=== PATIENT | male | born 1940 | race Caucasian/White ===

== ENCOUNTER → 2016-08-05 | Outpatient (CLI) | payer MEDICARE ==
[~2016-08-05] MED LIST: ALBU8.5H2 IH; ALBU8.5H2 INH; AMOX-358 PO; ASP81TEC PO; AZIT-21 PO; BENZ100C18 PO; BUDE6HFA INH; CEFP500T4 PO; CETI10TA17 PO; CHOL10008 PO; CHOL200018 PO; CINN500C7 PO; CINNAMON PO; CLOP75TA28 PO; DOCU100T PO; FLUT1DIS27 IH; FRSM40T PO; FURO20TA4 PO; GLUC1CAP3 PO; GUAI1TBM14 PO; GUAI1TBM7 PO; HYDR-3454 PO; IBUP-15 PO; IPR14IN INH; IPRA15SP2; IRBE1TAB17 PO; KCL20TCR PO; LACT1CAP62 PO; LEVO750T6 PO; LORA10TA7 PO; LOSA1TAB19 PO; LOSA1TAB9 PO; MAGN400T6 PO; MECL12.579 PO; METO25TA PO; MNTL10T PO; MOME13HF2 IH; MTF500T PO; NEBI2.5T5 PO; NF-CRES10T PO; NIAC1000 PO; NIAC500T30 PO; NITR0.4T SL; OMEG1CAP65 PO; POTA40LI PO; POTA99TA15 PO; PRCD5U PO; PRD10T PO; PRD20T PO; PRED10TA PO; RANI150T11 PO; RANI150T90 PO; RANI75TA30 PO; ROSU10TA12 PO; SITA100T PO; TEST75GE3 TD; TIOT18CA IH; TIOT18CA2 INH; TRIA10.8 NSEACH; TRIA16.5 NS; TRIA16.58 NSEACH; [UNRECOGNIZED DRUG - CODE] PO; [UNRECOGNIZED DRUG - OTHER]
--- OUTSIDE RECORDS SUMMARY | 2016-08-05 11:54 | XMS REPORT | Continuity of Care Document ---
Author Author [facility] Organization [facility] Address Unknown Phone Unavailable Care Team Providers Care Mold Setter Name Role Phone Unverified, Unverified PCP Unavailable Source Comments Some departments are not documenting in the electronic medical record. If you do not see the information that you expected, contact Release of Information in the Health Information Management department at [phone] for further assistance in locating additional records.[facility] Active Allergies and Adverse Reactions Allergen Noted Date Severity Reactions Comments Darvon 01/22/2013 UNKNOWN Loprox 01/22/2013 UNKNOWN Current Medications Prescription Sig. Disp. Refills Start End Date Status Date losartan/hydrochlorothiaz Take 1 Tab by mouth Active panda (HYZAAR) 100/12.5 mg daily. tablet 1 Tab rosuvastatin (CRESTOR) 10 Take 10 mg by mouth Active mg tablet daily. nebivolol (BYSTOLIC) 5 mg Take 5 mg by mouth daily. Active tablet potassium chloride SR Take 20 mEq by mouth Active (KLOR-CON M20) 20 mEq every 3 days. tablet montelukast (SINGULAIR) Take 10 mg by mouth at Active 10 mg tablet bedtime daily. metFORMIN (GLUCOPHAGE) Take 500 mg by mouth Active 500 mg tablet twice daily with meals. sitaGLIPtin (JANUVIA) 100 Take 100 mg by mouth Active mg Tab tablet daily. testosterone(+) (TESTIM) Apply to top of skin as Active 1 % (50 mg/5 g) directed daily. transdermal gel aspirin 81 mg chewable Take 81 mg by mouth Active tablet daily. cetirizine (ZYRTEC) 10 mg Take 10 mg by mouth Active tablet daily. GLUCOSAMINE HCL/CHONDR CHASE Take 2 Tabs by mouth Active A NA daily. (GLUCOSAMINE-CHONDROITIN) 750-600 mg Tab fish oil /omega-3 fatty Take 1 Cap by mouth three Active acids (SEA-OMEGA) times daily. 340/1000 mg capsule Cinnamon Bark (CINNAMON) Take 2 Caps by mouth Active 500 mg cap daily. Cholecalciferol (Vitamin Take 1 Cap by mouth Active D3) (VITAMIN D-3) 2,000 daily. unit cap docusate (COLACE) 100 mg Take 100 mg by mouth at Active capsule bedtime daily. niacin SR (ENDUR-ACIN) Take 500 mg by mouth Active 500 mg tablet twice daily. guaiFENesin LA (MUCINEX) Take 1,200 mg by mouth Active 600 mg tablet daily. ibuprofen (MOTRIN) 200 mg Take 200 mg by mouth Active tablet every 6 hours as needed. Mometasone-Formoterol Inhale 2 Puffs by mouth Active (DULERA) 100-5 twice daily. mcg/actuation HFAA tiotropium (SPIRIVA) 18 Inhale 18 mcg by mouth Active mcg capsule for inhaler daily. ipratropium (ATROVENT) Inhale 0.5 mg by mouth Active 0.02 % nebulizer solution daily. albuterol (VENTOLIN HFA, Inhale 2 Puffs by mouth Active PROAIR HFA) 90 every 6 hours as needed. mcg/actuation inhaler triamcinolone (NASACORT Apply 2 Sprays to each Active AQ) 55 mcg nasal inhaler nostril as directed daily. Active Problems Problem Noted Date COPD, very severe ([facility]) 01/23/2013 Former smoker, stopped smoking in distant past 01/23/2013 Supplemental oxygen dependent 01/23/2013 DM (diabetes mellitus) ([facility]) 01/23/2013 Social History Tobacco Use Types Packs/Day Years Used Date Former Smoker Cigarettes 1 37 Quit: 05/22/1994 Smokeless Tobacco: Never Used Alcohol Use Drinks/Week oz/Week Comments Yes 7 Standard 3.5 drinks or equivalent Last Filed Vital Signs Vital Sign Reading Time Taken Blood Pressure 165/88 01/22/2013 3:30 PM CDT Pulse 84 01/22/2013 3:30 PM CDT Temperature 36.2 C (97.1 F) 01/22/2013 3:30 PM CDT Respiratory Rate 20 01/22/2013 3:30 PM CDT Height 1.803 m (5' 11") 01/22/2013 3:30 PM CDT Weight 87.544 kg (193 lb) 01/22/2013 3:30 PM CDT Body Mass Index 26.93 01/22/2013 3:30 PM CDT Oxygen Saturation 93% 01/22/2013 3:30 PM CDT Plan of Care Health Maintenance Due Date Last Done Comments Physical (Comprehensive) 1947 Exam Pertussis Vaccine 1950 Tetanus Vaccine 1956 Shingles Vaccine 1999 Prevnar/Pneumovax (#1) 2004 Influenza Vaccine 01/20/2015 Results from Last 3 Months Not on file
--- NOTE | 2016-08-08 00:10 | ECHOCARDIOGRAPHY REPORT ---
PROCEDURE PHYSICIAN: GERARDO ZALDIVAR DATE OF PROCEDURE: 08/05/2016 TWO DIMENSIONAL ECHOCARDIOGRAM REPORT PRIMARY PHYSICIAN: OTHER PHYSICIAN: REFERRING PHYSICIAN: Dr. Briceno ORDERING PHYSICIAN: INDICATION FOR THE PROCEDURE: 1. Coronary artery disease. 2. Congestive heart failure. MEASUREMENTS DERIVED VALUES LV DIAMETER (LAX) NORMALS NORMALS Diastolic 4.2 (3.6-5.2) Eject. Fract. 60% (60%+/-6%) Systolic (2.3-3.9) Diastolic Vol. % Shortening (0.22-0.42) Systolic Vol. Aortic Root IVS THICKNESS Diastolic 1 (0.6-1.1) LVPW THICKNESS Diastolic 1.1 (0.6-1.1) LA DIAMETER Systolic 3 (2.1-3.7) FINDINGS: 1. Technical quality is good. 2. The left ventricle is normal in size. Systolic function appeared to be normal. Estimated ejection fraction 60%. 3. The left atrium is normal in size. No clot or thrombus were seen within the left atrium. 4. The right atrium and right ventricle are prominent. No clot or thrombus were seen within the right side. 5. Mitral valve is calcified with mild mitral regurgitation noted by color Doppler flow. No mitral valve prolapse. No mitral valve stenosis. 6. Aortic valve leaflets were not well visualized. No significant aortic valve stenosis or regurgitation was seen. 7. Tricuspid valve is normal in morphology with mild to moderate tricuspid regurgitation noted by color Doppler flow. Doppler across tricuspid valve estimated pulmonary artery pressure of 28+ right atrial pressure. 8. Pulmonic valve is functioning normally. 9. No pericardial effusion. IN CONCLUSION: 1. Normal left ventricular size and systolic function. Estimated ejection fraction 60%. 2. Prominent right heart chambers with estimated pulmonary artery pressure of 35 mmHg. 3. Mild mitral regurgitation, mild to moderate tricuspid regurgitation. Job ID: [id number] Dictated Date: 08/07/2016 10:51:50 Archivist Political History Date: 08/08/2016 00:07:02 / [place]
== END ==
LOC: CARD 11:50
PROVIDERS: ATTEND Internal Medicine Cardiovascular Disease
DX: I25.10 Atherosclerotic heart disease of native coronary artery without angina pectoris (principal); I50.22 Chronic systolic (congestive) heart failure; J44.9 Chronic obstructive pulmonary disease, unspecified; I65.23 Occlusion and stenosis of bilateral carotid arteries; I10 Essential (primary) hypertension; I27.2 Other secondary pulmonary hypertension
CPT/HCPCS: 93306

== ENCOUNTER → 2016-11-21 | Outpatient (CLI) | payer MEDICARE ==
--- NOTE | 2016-11-21 09:52 | Diagnostic Imaging Report ---
PROCEDURE: CT chest without contrast. TECHNIQUE: Multiple contiguous axial images were obtained through the chest without the use of intravenous contrast. INDICATION: Emphysema. Followup nodules. COMPARISON: The 11/18/2015 and 11/17/2014 CT chest exams were reviewed. FINDINGS: There are severe emphysematous changes again noted. A left upper lobe nodule measuring 2.1 x 8 mm is again noted without change from the prior exams. Another nodule in the right lung apex is also seen measuring 1.1 cm, also without significant change from the prior exams. There is no significant consolidation, mass, or new nodule identified. A calcified granuloma in the left lung base is seen. Some fibrotic changes are also noted. The heart size is normal. No pericardial or pleural effusion. There is evidence of prior CABG with healed sternotomy and sternotomy wires still seen. The thoracic aorta is normal in caliber. There is no mediastinal lymphadenopathy. No hilar lymphadenopathy or masses are appreciated along the unenhanced hilar vessels. No axillary lymphadenopathy. Sections in the upper abdomen demonstrate no significant abnormality. The osseous structures demonstrate mild degenerative changes in the thoracic spine. IMPRESSION: 1. Severe emphysema. 2. Stable bilateral upper lobe nodules from 2014, suggestive of scarring. Dictated by: Dictated on workstation # [id number]
== END ==
LOC: RAD 07:44
PROVIDERS: ATTEND Nurse Practitioner Family
DX: J43.9 Emphysema, unspecified (principal); R91.8 Other nonspecific abnormal finding of lung field; I27.2 Other secondary pulmonary hypertension
CPT/HCPCS: 71250

== ENCOUNTER 2016-12-08 10:00 | Outpatient (RCR) | payer MEDICARE | END 2016-12-11 | disposition home or self-care (01) | LOC: PULM 10:00 | PROVIDERS: ATTEND Nurse Practitioner Family | DX: J44.9 Chronic obstructive pulmonary disease, unspecified (principal); I27.2 Other secondary pulmonary hypertension | CPT/HCPCS: 99211 ==

== ENCOUNTER 2017-02-14 10:00 | Outpatient (RCR) | payer MEDICARE | END 2017-02-18 | disposition home or self-care (01) | LOC: PULM 10:00 | PROVIDERS: ATTEND Nurse Practitioner Family | DX: J44.9 Chronic obstructive pulmonary disease, unspecified (principal); I27.2 Other secondary pulmonary hypertension ==

== ENCOUNTER → 2018-02-26 | Outpatient (CLI) | payer MEDICARE ==
--- NOTE | 2018-02-26 13:15 | Diagnostic Imaging Report ---
INDICATION: Dysphagia. TECHNIQUE: The procedure was performed in conjunction with a member of the Department of Speech Pathology. The patient swallowed thin and thick barium as well as semisolid and solid foods mixed with barium paste. The study was recorded on video tape. FINDINGS: The oral phase of swallowing is unremarkable. There is no early spillover. There is no significant residual in the vallecula or pyriform sinuses. Cricopharyngeal function and laryngeal elevation are normal. There is no evidence of penetration or aspiration. IMPRESSION: No evidence of penetration or aspiration. Please correlate with the formal Speech Pathology report. Dictated by: Dictated on workstation # [id number]
== END ==
LOC: RAD 09:55
PROVIDERS: ATTEND Internal Medicine
DX: R13.12 Dysphagia, oropharyngeal phase (principal)
CPT/HCPCS: 74230

== ENCOUNTER → 2018-12-07 | Outpatient (CLI) | payer MEDICARE ==
[~2018-12-07] MED LIST changes: -HYDR-3454 PO; +HYDR-3455 PO; +RT-ALBUTEROL SULF 2.5 MG/3 ML PRE-MIX VIAL INH ONE
== END ==
LOC: RT 13:08
PROVIDERS: ATTEND Nurse Practitioner Family
DX: J44.9 Chronic obstructive pulmonary disease, unspecified (principal); I27.20 Pulmonary hypertension, unspecified; I30.9 Acute pericarditis, unspecified; F17.210 Nicotine dependence, cigarettes, uncomplicated
CPT/HCPCS: 94060; 94726; 94729

== ENCOUNTER → 2019-03-08 | Outpatient (CLI) | payer MEDICARE ==
[~2019-03-08] MED LIST changes: -RT-ALBUTEROL SULF 2.5 MG/3 ML PRE-MIX VIAL INH ONE
== END ==
LOC: CARD 14:02
PROVIDERS: ATTEND Physician Assistant
DX: I08.3 Combined rheumatic disorders of mitral, aortic and tricuspid valves (principal); I45.2 Bifascicular block; I25.10 Atherosclerotic heart disease of native coronary artery without angina pectoris; I50.9 Heart failure, unspecified; I65.29 Occlusion and stenosis of unspecified carotid artery
CPT/HCPCS: 93306

== ENCOUNTER 2019-03-27 12:59 | Outpatient (RCR) | payer MEDICARE ==
[2019-04-23 09:00] VITALS: BP 120/60
[2019-04-23 10:03] VITALS: BP 90/49
[2019-04-25 09:05] VITALS: BP 120/50
[2019-04-25 10:30] VITALS: BP 110/60
[2019-04-30 09:18] VITALS: BP 140/62
[2019-04-30 10:19] VITALS: BP 106/68
[2019-05-02 09:15] VITALS: BP 130/78
[2019-05-02 10:20] VITALS: BP 130/60
[2019-05-09 09:00] VITALS: BP 132/58
[2019-05-09 10:16] VITALS: BP 130/50
[2019-05-28 09:05] VITALS: BP 132/70
[2019-05-28 10:05] VITALS: BP 127/60
[2019-06-06] MEDS ORDERED: SITA100T12 PO (11:38)
[2019-06-06] MEDS ORDERED: ROSU10TA28 PO (11:38)
[2019-06-06] MEDS ORDERED: CITA10TA7 PO (11:38)
[2019-06-06] MEDS ORDERED: AMLO5TAB9 PO (11:38)
[2019-06-06] MEDS ORDERED: TRIA10.8 NS (11:38)
[2019-06-06] MEDS ORDERED: PRED2.5T PO (11:38)
[2019-06-06] MEDS ORDERED: MAGN400T50 PO (11:38)
[2019-06-06] MEDS ORDERED: UMEC62.5 INH (11:38)
[2019-06-06] MEDS ORDERED: ESOM20TA PO (11:38)
[2019-06-06] MEDS ORDERED: MULT1TAB69 PO (11:38)
[2019-06-06] MEDS ORDERED: GUAI-813 PO (11:38)
[2019-06-06] MEDS ORDERED: BUDE10.2 INH (11:38)
[2019-06-06] MEDS ORDERED: NFIPRATRNS NS (11:38)
[2019-06-06] MEDS ORDERED: ASPI-983 PO (11:38)
[2019-06-06] MEDS ORDERED: NITR0.4T39 SL (11:38)
[2019-06-06] MEDS ORDERED: POTA20TA15 PO (11:38)
[2019-06-06] MEDS ORDERED: MONT10TA24 PO (11:38)
[2019-06-06] MEDS ORDERED: PRD10T PO (11:38)
[2019-06-06] MEDS ORDERED: GUAI-365 PO (11:38)
[2019-06-06] MEDS ORDERED: ALBU18HF2 INH (11:38)
[2019-06-06] MEDS ORDERED: METF-397 PO (11:38)
[2019-06-06] MEDS ORDERED: FURO20TA4 PO (11:38)
[2019-06-06] MEDS ORDERED: OMEG-53 PO (11:38)
[2019-06-06] MEDS ORDERED: LOSA100T57 PO (11:38)
[2019-06-06] MEDS ORDERED: MTP25TSR PO (11:38)
[2019-06-06] MEDS ORDERED: NAPR220T66 PO (11:38)
== END 2019-06-10 | disposition home or self-care (01) ==
LOC: PULM 12:59
PROVIDERS: ATTEND Nurse Practitioner Family
DX: I27.20 Pulmonary hypertension, unspecified (principal); J44.9 Chronic obstructive pulmonary disease, unspecified; J30.9 Allergic rhinitis, unspecified
CPT/HCPCS: 99211

== ENCOUNTER 2019-04-15 16:38 | Emergency (ER) | payer MEDICARE ==
[~2019-04-15] VITALS: Ht 180.4 cm; Wt 80.9 kg
[2019-04-15] MEDS ORDERED: methylPREDNISolone 125 MG (Solu-MEDROL) VIAL IV STA (16:45)
[2019-04-15] MEDS ORDERED: RT-ALBUTEROL/IPRATROPIUM 3 ML (DUONEB) VIAL INH ONE (17:00)
[2019-04-15 17:15] LABS: ABG BASE EXCESS -1.2 MMOL/L (-2.5-2.5); ABG OXYGEN SATURATION 97 % (94-100); ABG PCO2 45 MMHG (35-45); ABG PO2 94 MMHG (79-93); ABG TCO2 25.1 MMOL/L (21.0-31.0)
[2019-04-15 17:16] LABS: ABG PH 7.34 (7.37-7.43); ALLENS TEST POSITIVE; INSPIRED O2 5 L
[2019-04-15 17:17] LABS: BASOPHILS # (AUTO) 0.1 10^3/uL (0.0-0.1); BASOPHILS % (AUTO) 1 % (0-10); EOSINOPHILS # (AUTO) 0.4 10^3/uL (0.0-0.3); EOSINOPHILS % (AUTO) 4 % (0-10); HEMATOCRIT 36 % (40-54); HEMOGLOBIN 11.7 G/DL (13.3-17.7); LYMPHOCYTES # (AUTO) 1.8 X 10^3 (1.0-4.0); LYMPHOCYTES % (AUTO) 22 % (12-44); MEAN CORPUSCULAR HEMOGLOBIN 29 PG (25-34); MEAN CORPUSCULAR HGB CONC 33 G/DL (32-36); MEAN CORPUSCULAR VOLUME 89 FL (80-99); MEAN PLATELET VOLUME 11.4 FL (7.4-10.4); MONOCYTES # (AUTO) 0.8 X 10^3 (0.0-1.0); MONOCYTES % (AUTO) 9 % (0-12); NEUTROPHILS # (AUTO) 5.5 X 10^3 (1.8-7.8); NEUTROPHILS % (AUTO) 65 % (42-75); PLATELET COUNT 228 10^3/uL (130-400); RED CELL DISTRIBUTION WIDTH 14.3 % (10.0-14.5); WHITE BLOOD COUNT 8.5 10^3/uL (4.3-11.0)
[2019-04-15 17:17] LABS: PATIENT TEMP 36.6; VENTILATOR NO
[2019-04-15 17:35] LABS: ALANINE AMINOTRANSFERASE 20 U/L (0-55); ALBUMIN 4.1 GM/DL (3.2-4.5); ALKALINE PHOSPHATASE 44 U/L (40-136); BILIRUBIN,TOTAL 0.3 MG/DL (0.1-1.0); BUN/CREATININE RATIO 19; CALCIUM 9.2 MG/DL (8.5-10.1); CARBON DIOXIDE 20 MMOL/L (21-32); CHLORIDE 106 MMOL/L (98-107); CREATININE SERUM 1.35 MG/DL (0.60-1.30); GFR ESTIMATED 51; GLUCOSE 108 MG/DL (70-105); POTASSIUM 5.6 MMOL/L (3.6-5.0); SODIUM 138 MMOL/L (135-145)
--- NOTE | 2019-04-15 18:23 | Diagnostic Imaging Report ---
EXAMINATION: Chest radiograph, portable AP view. DATE: 04/15/2019 6:10 PM hours. INDICATION: 78-year-old male, intermittent shortness of breath. COMPARISON: August 22, 2015. FINDINGS: There are median sternotomy wires. Stable overall appearance of the cardiomediastinal silhouette. There is no identified pneumothorax. There is blunting of the left lateral costophrenic angle. There are predominantly linear appearing opacities in the right lung base and also present in the left lower lung zone and left midlung which are grossly unchanged since comparison exam. There is a nodular opacity projecting just above the medial aspect of the left hemidiaphragm measuring up to 1.4 cm in size. There is an additional nodule projecting over the left upper lobe measuring 9 mm in size. Both nodules are seen previously and appear grossly unchanged. IMPRESSION: 1. Interval blunting of the left lateral costophrenic angle which may relate to effusion, atelectasis, and/or infiltrate. 2. Redemonstrated nodular opacities overlying the left lower lobe and left upper lobe which are grossly unchanged since August 22, 2015. 3. Predominantly linear opacities in the right lower lobe as well as in the left lower and midlung zones which could reflect chronic lung changes although are mildly increased since comparison exam. Superimposed consolidative process cannot be excluded. Dictated by: Dictated on workstation # [id number]
[2019-04-15] MEDS ORDERED: HOLD METFORMIN - RECEIVED CONTRAST 20 ML VIAL IV SCH (18:45)
[2019-04-15] MEDS ORDERED: CATHETER FLUSH 10 ML SYR IV PRN (18:45)
[2019-04-15] MEDS ORDERED: IOHEXOL 350 MG/ML 100 ML (OMNIPAQUE 350) VIAL IV ONE (18:45)
[2019-04-15] MEDS ORDERED: NS 100 ML (IVPB) BAG IV ONE (18:45)
--- NOTE | 2019-04-15 19:02 | ED Respiratory ---
General Chief Complaint: Respiratory Problems Stated Complaint: SOA Nursing Triage Note: Pt to room #7 via [facility] ems cart from home with c/o SOA. 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 Pt reports intermittent SOA for approx x1wk that became severe after waking from a nap on this day. Pt reports non productive cough. Denies fever or chills. Source: patient Exam Limitations: no limitations History of Present Illness Date Seen by Provider: Apr 15, 2019 Time Seen by Provider: 16:46 Initial Comments 78-year-old male who was brought to the emergency room by [facility] for complaints of shortness of air. The patient has significant history of COPD which requires 5-6 L of oxygen via nasal cannula at all times. He reports that he has been short of breath past few days and was recently started on prednisone 2.[address] Piña for COPD exacerbation. He reports that he's had a nonproductive cough for the past few days. He denies nausea, vomiting, diarrhea, fevers, chills. Timing/Duration: week, getting worse Associated Symptoms: cough, shortness of breath Allergies and Home Medications Allergies Coded Allergies: ciclopirox (Unverified Allergy, Mild, 06/19/10) itraconazole (Unverified Allergy, Mild, 06/19/10) propoxyphene (Unverified Allergy, Mild, 06/19/10) Home Medications Albuterol Sulfate 8.5 Gm Aer.w.adap, 2 PUFF INH Q4H PRN for SHORTNESS OF BREATH, (Reported) Amoxicillin/Potassium Clav 1 Each Tablet, 1 EACH PO BID Prescribed by: CECILIA BRUNER on 08/16/15 1519 Aspirin 81 Mg Tabec, 81 MG PO HS, (Reported) Budesonide/Formoterol Fumarate 1 Inhaler Aero, 2 PUFF INH BID, (Reported) Cetirizine HCl 10 Mg Tablet, 10 MG PO DAILY, (Reported) Cholecalciferol (Vitamin D3) 2,000 Unit Capsule, 2,000 UNIT PO BID, (Reported) Clopidogrel Bisulfate 75 Mg Tablet, 75 MG PO DAILY, (Reported) Furosemide 20 Mg Tablet, 20 MG PO DAILY, (Reported) Guaifenesin/Dextromethorphan 1 Each Tab, 2,400 MG PO BID, (Reported) TAKES 2 (1200MG) TABLETS Hydrocodone/Acetaminophen 1 Each Tablet, 1 EACH PO Q6H Prescribed by: LIUDMILA CM on 01/21/15 1122 Ibuprofen 200 Mg Tablet, 600 MG PO Q6H PRN for PAIN, (Reported) TAKES 3 (200MG) TABLETS Ipratropium Plaza 15 Ml [place], 2 SPRAYS NA BID, (Reported) Lactobacillus Acidophilus 1 Each Capsule, 1 EACH PO BID Prescribed by: CECLIIA BRUNER on 08/16/15 1519 Losartan/Hydrochlorothiazide 1 Each Tablet, 1 TAB PO DAILY, (Reported) Magnesium Oxide 400 Mg Tablet, 400 MG PO DAILY, (Reported) Meclizine HCl 12.5 Mg Tablet, 12.5 MG PO TID PRN for DIZZINESS Prescribed by: JONAH BROOKE on 08/22/15 1440 Metformin Hcl 500 Mg Tablet, 250 MG PO HS, (Reported) TAKE 1/2 OF 500MG TAB Metoprolol Succinate 25 Mg Tab.sr.24h, 25 MG PO DAILY, (Reported) Nitroglycerin 0.4 Mg Tab.subl, 0.4 MG SL Q5M PRN for CHEST PAIN, (Reported) [place]-3/Dha/Epa/Fish Oil 1 Each Capsule, 1 CAP PO BID, (Reported) Potassium Chloride 40 Meq/15 Ml Liquid, 7.5 ML PO DAILY, (Reported) Prednisone 20 Mg Tab, 40 MG PO DAILY Take 3 tabs(60mg)daily, decrease by 1/2 tab(10mg)daily. Prescribed by: CECILIA BRUNER on 08/16/15 151 Ranitidine HCl 150 Mg Tablet, 150 MG PO HS, (Reported) Rosuvastatin Calcium 10 Mg Tab, 10 MG PO HS, (Reported) Sitagliptin Phosphate 100 Mg Tablet, 100 MG PO DAILY, (Reported) Tiotropium Plaza 1 Inh Aerp, 1 CAP INH DAILY, (Reported) Triamcinolone Acetonide 16.5 Gm [place], 2 SPRAYS NSEACH DAILY, (Reported) Patient Home Medication List Home Medication List Reviewed: Yes Review of Systems Review of Systems Constitutional: see HPI; No chills, No fever Respiratory: see HPI, cough, short of breath All Other Systems Reviewed Negative Unless Noted: Yes Past Renwlba-Nqvlbo-Sjrpbl Hx Past Med/Social Hx: Reviewed Nursing Past Med/Soc Hx Patient Social History Alcohol Use: Rarely Uses Number of Drinks Today: 0 Alcohol Beverage of Choice: Wine Recreational Drug Use: No Smoking Status: Former Smoker Type Used: Cigarettes Former Smoker, Quit: May 22, 1968 2nd Hand Smoke Exposure: No Recent Foreign Travel: No Contact w/Someone Who Travel: No Recent Infectious Disease Expo: No Immunizations Up To Date Tetanus Booster (TDap): Unknown Date of Pneumonia Vaccine: Sep 02, 2014 Date of Influenza Vaccine: Feb 19, 2015 Seasonal Allergies Seasonal Allergies: No Past Medical History Surgeries: Yes (R KNEE, L LUNG RESECTION, QUINTUPLE BYPASS, STENTS) CABG Respiratory: Yes (COPD, WEARS O2, ) Pneumonia, COPD Cardiac: Yes ( CHF) Coronary Artery Disease Neurological: No Reproductive Disorders: No Gastrointestinal: No Musculoskeletal: No Endocrine: Yes Diabetes, Non-Insulin dep Cataract Loss of Vision: Denies Hearing Impairment: Denies Cancer: Yes Skin Psychosocial: No Integumentary: No Blood Disorders: No (LIVED IN [place] DURING "MAD COW OUTBREAK" UNABLE TO DONATE BLOOD OR ORGAN) Adverse Reaction/Blood Tranf: No Family Medical History Reviewed Nursing Family Hx Alzheimer's disease 19 FATHER Hypertension 19 MOTHER Scarlet fever 19 MOTHER Physical Exam Vital Signs - First Documented 04/15/19 16:38 Temp 36.2 Pulse 65 Resp 20 B/P (MAP) 166/116 (133) Pulse Ox 99 O2 Delivery Nasal Cannula O2 Flow Rate 5.00 Capillary Refill : Less Than 3 Seconds Height: 5'11" Weight: 178lbs. 0.0oz. 80.524955fq; 24.00 BMI Method:Stated General Appearance: WD/WN, no apparent distress HEENT: PERRL/EOMI, normal ENT inspection Respiratory: chest non-tender, no respiratory distress, no accessory muscle use, decreased breath sounds (with faint expiratory wheezes) Cardiovascular: normal peripheral pulses, regular rate, rhythm, no edema, no gallop, no JVD, no murmur Gastrointestinal: normal bowel sounds, non tender, soft, no organomegaly, no pulsatile mass Extremities: normal capillary refill Neurologic/Psychiatric: alert, normal mood/affect, oriented x 3 Skin: normal color, warm/dry Focused Exam Lactate Level 04/15/19 16:55: Lactic Acid Level 1.06 Lactic Acid Level Laboratory Tests Test 04/15/19 16:55 Lactic Acid Level 1.06 MMOL/L (0.50-2.00) Progress/Results/Core Measures Suspected Sepsis Recent Fever Within 48 Hours: No Infection Criteria Present: Suspected New Infection New/Unexplained Altered Menta: No Sepsis Screen: No Definite Risk SIRS Temperature: Pulse: 65 Respiratory Rate: 20 Laboratory Tests 04/15/19 16:55: White Blood Count 8.5 Blood Pressure 166 /116 Mean: 133 04/15/19 16:55: Lactic Acid Level 1.06 Laboratory Tests 04/15/19 16:55: Creatinine 1.35H, Platelet Count 228, Total Bilirubin 0.3 Results/Orders Lab Results Laboratory Tests Test 04/15/19 16:55 04/15/19 17:10 Range/Units White Blood Count 8.5 4.3-11.0 10^3/uL Red Blood Count 4.05 L 4.35-5.85 10^6/uL Hemoglobin 11.7 L 13.3-17.7 G/DL Hematocrit 36 L 40-54 % Mean Corpuscular Volume 89 80-99 FL Mean Corpuscular Hemoglobin 29 25-34 PG Mean Corpuscular Hemoglobin Concent 33 32-36 G/DL Red Cell Distribution Width 14.3 10.0-14.5 % Platelet Count 228 130-400 10^3/uL Mean Platelet Volume 11.4 H 7.4-10.4 FL Neutrophils (%) (Auto) 65 42-75 % Lymphocytes (%) (Auto) 22 12-44 % Monocytes (%) (Auto) 9 0-12 % Eosinophils (%) (Auto) 4 0-10 % Basophils (%) (Auto) 1 0-10 % Neutrophils # (Auto) 5.5 1.8-7.8 X 10^3 Lymphocytes # (Auto) 1.8 1.0-4.0 X 10^3 Monocytes # (Auto) 0.8 0.0-1.0 X 10^3 Eosinophils # (Auto) 0.4 H 0.0-0.3 10^3/uL Basophils # (Auto) 0.1 0.0-0.1 10^3/uL Sodium Level 138 135-145 MMOL/L Potassium Level 5.6 H 3.6-5.0 MMOL/L Chloride Level 106 98-107 MMOL/L Carbon Dioxide Level 20 L 21-32 MMOL/L Anion Gap 12 5-14 MMOL/L Blood Urea Nitrogen 25 H 7-18 MG/DL Creatinine 1.35 H 0.60-1.30 MG/DL Estimat Glomerular Filtration Rate 51 BUN/Creatinine Ratio 19 Glucose Level 108 H 70-105 MG/DL Lactic Acid Level 1.06 0.50-2.00 MMOL/L Calcium Level 9.2 8.5-10.1 MG/DL Corrected Calcium 9.1 8.5-10.1 MG/DL Total Bilirubin 0.3 0.1-1.0 MG/DL Aspartate Amino Transf (AST/SGOT) 25 5-34 U/L Alanine Aminotransferase (ALT/SGPT) 20 0-55 U/L Alkaline Phosphatase 44 40-136 U/L Troponin I < 0.028 <0.028 NG/ML B-Type Natriuretic Peptide 213.4 H <100.0 PG/ML Total Protein 7.0 6.4-8.2 GM/DL Albumin 4.1 3.2-4.5 GM/DL Blood Gas Puncture Site LEFT RADIAL Blood Gas Patient Temperature 36.6 Arterial Blood pH 7.34 *L 7.37-7.43 Arterial Blood Partial Pressure CO2 45 35-45 MMHG Arterial Blood Partial Pressure O2 94 H 79-93 MMHG Arterial Blood HCO3 24 23-27 MMOL/L Arterial Blood Total CO2 25.1 21.0-31.0 MMOL/L Arterial Blood Oxygen Saturation 97 94-100 % Arterial Blood Base Excess -1.2 -2.5-2.5 MMOL/L Florentin Test POSITIVE Blood Gas Ventilator Setting NO Blood Gas Inspired Oxygen 5 L My Orders Orders - MATTHEW LUNSFORD Cbc With Automated Diff (04/15/19 16:45) Comprehensive Metabolic Panel (04/15/19 16:45) BNP (04/15/19 16:45) Blood Culture (04/15/19 16:45) Ekg Tracing (04/15/19 16:45) O2 (04/15/19 16:45) Ed Iv/Invasive Line Start (04/15/19 16:45) Monitor-Rhythm Ecg Trace Only (04/15/19 16:45) Methylprednisolone Sod Succ (Solu-Medrol (04/15/19 16:45) Chest 1 View, Ap/Pa Only (04/15/19 16:45) Lactic Acid Analyzer (04/15/19 16:45) Albuterol/Ipra Inhalation Soln (Duoneb I (04/15/19 17:00) Svn Small Volume Nebulizer (04/15/19 16:49) Troponin I (04/15/19 16:53) Arterial Blood Gas (04/15/19 17:10) Arterial Blood Draw (04/15/19 ) Ct Angio Chest W (04/15/19 18:38) Iohexol Injection (Omnipaque 350 Mg/Ml 1 (04/15/19 18:45) Received Contrast (Hold Metformin- Contr (04/15/19 18:45) Sodium Chloride Flush (Catheter Flush Sy (04/15/19 18:45) Ns (Ivpb) (Sodium Chloride 0.9% Ivpb Bag (04/15/19 18:45) Medications Given in ED Current Medications Medications Dose Ordered Sig/Yuriy Route Start Time Stop Time Status Last Admin Dose Admin Albuterol/ Ipratropium 3 ml ONCE ONCE INH 04/15/19 17:00 04/15/19 17:01 DC 04/15/19 17:11 3 ML Iohexol 100 ml ONCE ONCE IV 04/15/19 18:45 04/15/19 18:46 DC 04/15/19 19:03 70 ML Sodium Chloride 10 ml NEEDED PRN IV 04/15/19 18:45 04/15/19 19:49 DC 04/15/19 19:03 10 ML Sodium Chloride 100 ml ONCE ONCE IV 04/15/19 18:45 04/15/19 18:46 DC 04/15/19 19:03 80 ML Vital Signs/I&O 04/15/19 04/15/19 04/15/19 04/15/19 16:38 16:38 17:11 19:49 Temp 36.2 36.2 Pulse 65 65 Resp 20 20 B/P (MAP) 166/116 (133) 171/74 (133) Pulse Ox 99 99 99 99 O2 Delivery Nasal Cannula Nasal Cannula Nasal Cannula Nasal Cannula O2 Flow Rate 5.00 5.00 5.00 5.00 Capillary Refill : Less Than 3 Seconds Blood Pressure Mean: 133 POS Progress Note : Time: 18:40 Progress Note I have seen and evaluated the patient. The patient is feeling much better after second DuoNeb treatment. I have discussed the case with Dr. Piña at this time and he recommends getting a CT angios of the patient's chest and that if this is normal to have the patient follow-up with his office early next week. The patie nt agrees with plan of care, plans for discharge, return precautions were given. ECG Initial ECG Impression Date: Apr 15, 2019 Initial ECG Impression Time: 17:01 Initial ECG Rate: 61 Initial ECG Rhythm: Normal Sinus Initial ECG Comparisson: Unchanged Departure Impression Primary Impression: Acute exacerbation of chronic obstructive pulmonary disease (COPD) Disposition: HOME, SELF-CARE Condition: Stable/Unchanged Departure-Patient Inst. Decision time for Depature: 19:42 Referrals: CHARI BRICENO DO (PCP/Family) Primary Care Physician Patient Instructions: Exacerbation of COPD (DC) Add. Discharge Instructions: Continue your breathing treatments at home and continue to take the steroids as prescribed by Dr. Piña's office. Call first thing tomorrow morning to schedule an appointment for follow-up. Call Dr. Briceno's office for follow-up appointment to be seen within 1 week. Return back to the emergency room for worsening symptoms, chest pain, shortness of breath, or any other concerns as needed. All discharge instructions reviewed with patient and/or family. Voiced understanding. MATTHEW LUNSFORD Apr 15, 2019 19:02 POS
--- NOTE | 2019-04-15 19:29 | Diagnostic Imaging Report ---
PROCEDURE: CT angiography of the chest with contrast. TECHNIQUE: Multiple contiguous axial images were obtained through the chest after uneventful bolus administration of intravenous contrast. 3D reconstructed CTA MIP acquisitions were also performed. Auto Exposure Controls were utilized during the CT exam to meet ALARA standards for radiation dose reduction. DATE: April 15, 2019. COMPARISON: CT chest November 21, 2016. Chest radiograph April 15, 2019. INDICATION: 78-year-old female, cough. FINDINGS: There is a calcified left lower lobe granuloma measuring up to 1.6 cm in size on axial image 126. There is a calcified nodule in the left upper lobe measuring up to 1.8 cm in size on axial image 55 which is also consistent with benign etiology. This is stable dating back to at least November 18, 2015. There are prominent findings of emphysema. There are mild linear opacities in the right middle lobe consistent with scarring and/or atelectasis. There is mild atelectasis in the right lower lobe. There is a 3 mm noncalcified pleurally-based right lower lobe pulmonary nodule on axial image 123 which is unchanged since October 2015 and consistent with benign etiology. There are mild linear opacities in the left lower lobe consistent with atelectasis. There is no pneumothorax. There is no sizable pleural effusion. There is no identified pulmonary embolus. The main pulmonary artery is normal in caliber. The heart is not enlarged. There is no pericardial effusion. There are atherosclerotic calcifications. There is no identified abnormally enlarged mediastinal, hilar, or axillary lymph node which meets CT size criteria for adenopathy. There is cholelithiasis without evidence to suggest acute cholecystitis. Additional evaluation of the imaged portions of the upper abdomen is unremarkable. There are degenerative changes of the spine. There are median sternotomy wires. There is a chronic-appearing left rib deformity. There is no identified acute bony abnormality. IMPRESSION: CT CHEST. 1. Extensive changes of emphysema with mild scarring and/or atelectasis in the right middle lobe, right lower lobe, and left lower lobe. 2. Benign calcified left-sided pulmonary nodules. No concerning pulmonary nodule. 3. No identified pulmonary embolus or other acute cardiopulmonary abnormality. 4. Cholelithiasis without evidence of acute cholecystitis. Dictated by: Dictated on workstation # [id number]
[2019-04-15 19:49] VITALS: BP 171/74
== END 2019-04-15 19:49 | disposition home or self-care (01) ==
LOC: EDUNIT# 16:38 → ER 16:39
DX: J44.1 Chronic obstructive pulmonary disease with (acute) exacerbation (principal); I25.10 Atherosclerotic heart disease of native coronary artery without angina pectoris; I50.9 Heart failure, unspecified; E11.9 Type 2 diabetes mellitus without complications; Z85.828 Personal history of other malignant neoplasm of skin; Z87.01 Personal history of pneumonia (recurrent); Z99.81 Dependence on supplemental oxygen; Z88.8 Allergy status to other drugs, medicaments and biological substances; Z88.5 Allergy status to narcotic agent; Z79.82 Long term (current) use of aspirin; Z79.02 Long term (current) use of antithrombotics/antiplatelets; Z79.84 Long term (current) use of oral hypoglycemic drugs; Z79.52 Long term (current) use of systemic steroids; Z87.891 Personal history of nicotine dependence; Z95.1 Presence of aortocoronary bypass graft; Z82.49 Family history of ischemic heart disease and other diseases of the circulatory system
CPT/HCPCS: 36415; 36600; 71045; 71275; 80053; 82805; 83605; 83880; 84484; 85025; 87040; 93005; 93041; 94640; 96374

== ENCOUNTER 2019-06-06 08:05 | Inpatient (IN) | payer MEDICARE ==
[~2019-06-06] VITALS: Ht 180.3 cm; Wt 96.9 kg
[2019-06-06] VITALS (12 sets, daily range): BP systolic 100–208; BP diastolic 59–106
--- NOTE | 2019-06-06 08:10 | NUR ---
SEE LIST FOR CURRENT MEDS
--- NOTE | 2019-06-06 08:19 | ED Dyspnea ---
General Stated Complaint: SOA Source of Information: Patient, EMS History of Present Illness Date Seen by Provider: Jun 06, 2019 Time Seen by Provider: 08:10 Initial Comments 79-year-old male presents with shortness of breath and wheezing. Patient has a history of severe COPD. He was seen [address] Piña and started on prednisone and azithromycin for COPD. Patient reports that his shortness of breath has worsened. He is currently up to his oxygen to 6 L home O2. He complains of cough. He denies any fever, chills, nausea, vomiting, chest pain. He reports is similar to his previous COPD exacerbations. Allergies and Home Medications Allergies Coded Allergies: ciclopirox (Unverified Allergy, Mild, 06/19/10) itraconazole (Unverified Allergy, Mild, 06/19/10) propoxyphene (Unverified Allergy, Mild, 06/19/10) Home Medications Albuterol Sulfate 8.5 Gm Aer.w.adap, 2 PUFF INH Q4H PRN for SHORTNESS OF BREATH, (Reported) Amoxicillin/Potassium Clav 1 Each Tablet, 1 EACH PO BID Prescribed by: CECILIA BRUNER on 08/16/15 151 Aspirin 81 Mg Tabec, 81 MG PO HS, (Reported) Budesonide/Formoterol Fumarate 1 Inhaler Aero, 2 PUFF INH BID, (Reported) Cetirizine HCl 10 Mg Tablet, 10 MG PO DAILY, (Reported) Cholecalciferol (Vitamin D3) 2,000 Unit Capsule, 2,000 UNIT PO BID, (Reported) Clopidogrel Bisulfate 75 Mg Tablet, 75 MG PO DAILY, (Reported) Furosemide 20 Mg Tablet, 20 MG PO DAILY, (Reported) Guaifenesin/Dextromethorphan 1 Each Tab, 2,400 MG PO BID, (Reported) TAKES 2 (1200MG) TABLETS Hydrocodone/Acetaminophen 1 Each Tablet, 1 EACH PO Q6H Prescribed by: LIUDMILA CM on 01/21/15 1122 Ibuprofen 200 Mg Tablet, 600 MG PO Q6H PRN for PAIN, (Reported) TAKES 3 (200MG) TABLETS Ipratropium [place] 15 Ml [place], 2 SPRAYS NA BID, (Reported) Lactobacillus Acidophilus 1 Each Capsule, 1 EACH PO BID Prescribed by: CECILIA BRUNER on 08/16/15 151 Losartan/Hydrochlorothiazide 1 Each Tablet, 1 TAB PO DAILY, (Reported) Magnesium Oxide 400 Mg Tablet, 400 MG PO DAILY, (Reported) Meclizine HCl 12.5 Mg Tablet, 12.5 MG PO TID PRN for DIZZINESS Prescribed by: JONAH BROOKE on 08/22/15 1440 Metformin Hcl 500 Mg Tablet, 250 MG PO HS, (Reported) TAKE 1/2 OF 500MG TAB Metoprolol Succinate 25 Mg Tab.sr.24h, 25 MG PO DAILY, (Reported) Nitroglycerin 0.4 Mg Tab.subl, 0.4 MG SL Q5M PRN for CHEST PAIN, (Reported) [place]-3/Dha/Epa/Fish Oil 1 Each Capsule, 1 CAP PO BID, (Reported) Potassium Chloride 40 Meq/15 Ml Liquid, 7.5 ML PO DAILY, (Reported) Prednisone 20 Mg Tab, 40 MG PO DAILY Take 3 tabs(60mg)daily, decrease by 1/2 tab(10mg)daily. Prescribed by: CECILIA BRUNER on 08/16/15 1519 Ranitidine HCl 150 Mg Tablet, 150 MG PO HS, (Reported) Rosuvastatin Calcium 10 Mg Tab, 10 MG PO HS, (Reported) Sitagliptin Phosphate 100 Mg Tablet, 100 MG PO DAILY, (Reported) Tiotropium [place] 1 Inh Aerp, 1 CAP INH DAILY, (Reported) Triamcinolone Acetonide 16.5 Gm [place], 2 SPRAYS NSEACH DAILY, (Reported) Patient Home Medication List Home Medication List Reviewed: Yes Review of Systems Review of Systems Constitutional: No chills, No dizziness, No fever Respiratory: cough, phlegm, short of breath, wheezing Cardiovascular: No chest pain Gastrointestinal: No diarrhea, No nausea, No vomiting Genitourinary: no symptoms reported Musculoskeletal: no symptoms reported Skin: no symptoms reported Psychiatric/Neurological: No Symptoms Reported Past Xcmrtok-Wbtjqp-Kxexno Hx Past Med/Social Hx: Reviewed Nursing Past Med/Soc Hx Patient Social History Alcohol Beverage of Choice: Wine Type Used: Cigarettes Former Smoker, Quit: May 22, 1968 2nd Hand Smoke Exposure: No Immunizations Up To Date Tetanus Booster (TDap): Unknown Date of Pneumonia Vaccine: Sep 02, 2014 Date of Influenza Vaccine: Feb 19, 2015 Seasonal Allergies Seasonal Allergies: No Past Medical History Surgeries: Yes (R KNEE, L LUNG RESECTION, QUINTUPLE BYPASS, STENTS) CABG Respiratory: Yes (COPD, WEARS O2, ) Pneumonia, COPD Cardiac: Yes ( CHF) Coronary Artery Disease Neurological: No Reproductive Disorders: No Gastrointestinal: No Musculoskeletal: No Endocrine: Yes Diabetes, Non-Insulin dep Cataract Loss of Vision: Denies Hearing Impairment: Denies Cancer: Yes Skin Psychosocial: No Integumentary: No Blood Disorders: No (LIVED IN [place] DURING "MAD COW OUTBREAK" UNABLE TO DONATE BLOOD OR ORGAN) Adverse Reaction/Blood Tranf: No Family Medical History Alzheimer's disease 19 FATHER Hypertension 19 MOTHER Scarlet fever 19 MOTHER Physical Exam Vital Signs Vital Signs - First Documented 06/06/19 06/06/19 08:07 08:36 Temp 37.2 Pulse 80 Resp 25 B/P (MAP) 197/94 (128) Pulse Ox 96 O2 Delivery Nasal Cannula O2 Flow Rate 15.00 FiO2 40 Capillary Refill : Height, Weight, BMI Height: 5'11" Weight: 178lbs. 0.0oz. 80.380505yb; 24.00 BMI Method:Stated General Appearance: No Apparent Distress, WD/WN HEENT: PERRL/EOMI, TMs Normal Respiratory: Decreased Breath Sounds, Wheezing Cardiovascular: Regular Rate, Rhythm Extremity: Normal Capillary Refill, Normal Inspection Neurologic/Psychiatric: Alert, Oriented x3 Skin: Normal Color, Warm/Dry Lymphatic: No Adenopathy Progress/Results/Core Measures Results/Orders Lab Results Laboratory Tests Test 06/06/19 08:10 Range/Units White Blood Count 13.7 H 4.3-11.0 10^3/uL Red Blood Count 4.14 L 4.35-5.85 10^6/uL Hemoglobin 12.1 L 13.3-17.7 G/DL Hematocrit 37 L 40-54 % Mean Corpuscular Volume 90 80-99 FL Mean Corpuscular Hemoglobin 29 25-34 PG Mean Corpuscular Hemoglobin Concent 32 32-36 G/DL Red Cell Distribution Width 14.9 H 10.0-14.5 % Platelet Count 183 130-400 10^3/uL Mean Platelet Volume 11.7 H 7.4-10.4 FL Neutrophils (%) (Auto) 65 42-75 % Lymphocytes (%) (Auto) 21 12-44 % Monocytes (%) (Auto) 12 0-12 % Eosinophils (%) (Auto) 1 0-10 % Basophils (%) (Auto) 0 0-10 % Neutrophils # (Auto) 8.9 H 1.8-7.8 X 10^3 Lymphocytes # (Auto) 2.9 1.0-4.0 X 10^3 Monocytes # (Auto) 1.7 H 0.0-1.0 X 10^3 Eosinophils # (Auto) 0.1 0.0-0.3 10^3/uL Basophils # (Auto) 0.0 0.0-0.1 10^3/uL Sodium Level 137 135-145 MMOL/L Potassium Level 5.2 H 3.6-5.0 MMOL/L Chloride Level 104 98-107 MMOL/L Carbon Dioxide Level 22 21-32 MMOL/L Anion Gap 11 5-14 MMOL/L Blood Urea Nitrogen 29 H 7-18 MG/DL Creatinine 1.34 H 0.60-1.30 MG/DL Estimat Glomerular Filtration Rate 51 BUN/Creatinine Ratio 22 Glucose Level 134 H 70-105 MG/DL Calcium Level 9.3 8.5-10.1 MG/DL Corrected Calcium 9.0 8.5-10.1 MG/DL Magnesium Level 1.9 1.6-2.4 MG/DL Total Bilirubin 0.3 0.1-1.0 MG/DL Aspartate Amino Transf (AST/SGOT) 36 H 5-34 U/L Alanine Aminotransferase (ALT/SGPT) 32 0-55 U/L Alkaline Phosphatase 47 40-136 U/L B-Type Natriuretic Peptide 361.8 H <100.0 PG/ML Total Protein 7.0 6.4-8.2 GM/DL Albumin 4.4 3.2-4.5 GM/DL Micro Results Microbiology 06/06/19 Influenza Types A,B Antigen (CHIQUITA) - Final, Complete My Orders Orders - HAMZAH CLAUDIO DO Cbc With Automated Diff (06/06/19 08:19) Comprehensive Metabolic Panel (06/06/19 08:19) BNP (06/06/19 08:19) Magnesium (06/06/19 08:19) Ekg Tracing (06/06/19 08:19) O2 (06/06/19 08:19) Ed Iv/Invasive Line Start (06/06/19 08:19) Monitor-Rhythm Ecg Trace Only (06/06/19 08:19) Vapotherm - Admin Rt Rfs (06/06/19 08:19) Magnesium 1 Gm/100 Ml Ivpb (Magnesium Kamara (06/06/19 08:30) Influenza A And B Antigens (06/06/19 08:25) Vapotherm - Admin Rt Rfs (06/06/19 08:39) Chest 1 View, Ap/Pa Only (06/06/19 08:41) Vital Signs/I&O 06/06/19 06/06/19 08:07 08:36 Temp 37.2 Pulse 80 Resp 25 B/P (MAP) 197/94 (128) Pulse Ox 96 98 O2 Delivery Nasal Cannula Vapotherm O2 Flow Rate 15.00 20.00 FiO2 40 Progress Progress Note : Time: 09:03 Progress Note Patient's symptoms significantly improved with the Vapotherm. Discussed with Dr. Alejandro. We will admit him to the floor on Vapotherm for COPD/pulmonary edema. Patient is admitted in stable condition Initial ECG Impression Date: Jun 06, 2019 Initial ECG Impression Time: 08:41 Initial ECG Rate: 81 Initial ECG Rhythm: Normal Sinus Comment RBBB, abnormal ekg, no acute changes Departure Communication (Admissions) Time/Spoke to Admitting Phy: 09:03 Impression Primary Impression: Acute exacerbation of chronic obstructive pulmonary disease (COPD) Additional Impression: Pulmonary edema Qualified Codes: J81.0 - Acute pulmonary edema Disposition: ADMITTED INPATIENT Condition: Stable Admissions Decision to Admit Reason: Admit from ER (General) Decision to Admit/Date: Jun 06, 2019 Time/Decision to Admit Time: 09:04 Departure-Patient Inst. Referrals: CHARI GARNER DO (PCP/Family) Primary Care Physician HAMZAH CLAUDIO DO Jun 06, 2019 08:18
[2019-06-06 08:25] LABS: BASOPHILS % (AUTO) 0 % (0-10); EOSINOPHILS # (AUTO) 0.1 10^3/uL (0.0-0.3); EOSINOPHILS % (AUTO) 1 % (0-10); HEMATOCRIT 37 % (40-54); HEMOGLOBIN 12.1 G/DL (13.3-17.7); LYMPHOCYTES # (AUTO) 2.9 X 10^3 (1.0-4.0); LYMPHOCYTES % (AUTO) 21 % (12-44); MEAN CORPUSCULAR HEMOGLOBIN 29 PG (25-34); MEAN CORPUSCULAR HGB CONC 32 G/DL (32-36); MEAN CORPUSCULAR VOLUME 90 FL (80-99); MEAN PLATELET VOLUME 11.7 FL (7.4-10.4); MONOCYTES # (AUTO) 1.7 X 10^3 (0.0-1.0); MONOCYTES % (AUTO) 12 % (0-12); NEUTROPHILS # (AUTO) 8.9 X 10^3 (1.8-7.8); NEUTROPHILS % (AUTO) 65 % (42-75); PLATELET COUNT 183 10^3/uL (130-400); RED CELL DISTRIBUTION WIDTH 14.9 % (10.0-14.5); WHITE BLOOD COUNT 13.7 10^3/uL (4.3-11.0)
[2019-06-06] MEDS: MAGNESIUM 1 GM/100 ML IVPB 100 ML IV SCH ×2 (08:36→08:37)
--- NOTE | 2019-06-06 08:36 | NUR ---
PT STARTED ON VAPOTHERM BY RT.
[2019-06-06 08:44] LABS: ALBUMIN 4.4 GM/DL (3.2-4.5); BILIRUBIN,TOTAL 0.3 MG/DL (0.1-1.0); CALCIUM 9.3 MG/DL (8.5-10.1); CREATININE SERUM 1.34 MG/DL (0.60-1.30); MAGNESIUM 1.9 MG/DL (1.6-2.4); POTASSIUM 5.2 MMOL/L (3.6-5.0)
--- NOTE | 2019-06-06 08:58 | Diagnostic Imaging Report ---
INDICATION: Shortness of breath. COMPARISON: 04/15/2019 FINDINGS: Single view of the chest demonstrates cardiac enlargement without overt pulmonary edema. COPD is present with stable chronic interstitial changes in the lung bases. There is stable volume loss in the left base. Underlying acute infiltrate is not fully excluded. There is no pneumothorax. There is a stable nodule in the medial left lung base. IMPRESSION: COPD with chronic interstitial changes. Underlying acute infiltrate not fully excluded. Dictated by: Dictated on workstation # [id number]
[2019-06-06] MEDS ORDERED: LORazepam INJ 2 MG/ML (ATIVAN) VIAL ONE (09:44)
--- NOTE | 2019-06-06 09:44 | NUR ---
REPORT TAKEN FROM JAMIE JOSHUA AT THIS TIME. THIS RN WILL ASSUME CARE OF THIS PATIENT WHEN HE ARRIVES TO THIS FLOOR.
[2019-06-06] MEDS ORDERED: RT-ALBUTEROL/IPRATROPIUM 3 ML (DUONEB) VIAL INH ONE (09:45)
--- NOTE | 2019-06-06 09:58 | NUR ---
PATIENT TO FLOOR VIA CART AT THIS TIME ACCOMPANIED BY JAMIE JOSHUA. THIS RN WILL ASSUME CARE OF THIS PATIENT AT THIS TIME.
[2019-06-06] MEDS ORDERED: TRIA10.8 NS (11:38)
[2019-06-06] MEDS ORDERED: ESOM20TA PO (11:38)
[2019-06-06] MEDS ORDERED: CITA10TA7 PO (11:38)
[2019-06-06] MEDS ORDERED: BUDE10.2 INH (11:38)
[2019-06-06] MEDS ORDERED: NITR0.4T39 SL (11:38)
[2019-06-06] MEDS ORDERED: UMEC62.5 INH (11:38)
[2019-06-06] MEDS ORDERED: ALBU18HF2 INH (11:38)
[2019-06-06] MEDS ORDERED: OMEG-53 PO (11:38)
[2019-06-06] MEDS ORDERED: MONT10TA24 PO (11:38)
[2019-06-06] MEDS ORDERED: MAGN400T50 PO (11:38)
[2019-06-06] MEDS ORDERED: AMLO5TAB9 PO (11:38)
[2019-06-06] MEDS ORDERED: NAPR220T66 PO (11:38)
[2019-06-06] MEDS ORDERED: GUAI-813 PO (11:38)
[2019-06-06] MEDS ORDERED: ASPI-983 PO (11:38)
[2019-06-06] MEDS ORDERED: MULT1TAB69 PO (11:38)
[2019-06-06] MEDS ORDERED: POTA20TA15 PO (11:38)
[2019-06-06] MEDS ORDERED: SITA100T12 PO (11:38)
[2019-06-06] MEDS ORDERED: MTP25TSR PO (11:38)
[2019-06-06] MEDS ORDERED: LOSA100T57 PO (11:38)
[2019-06-06] MEDS ORDERED: PRED2.5T PO (11:38)
[2019-06-06] MEDS ORDERED: GUAI-365 PO (11:38)
[2019-06-06] MEDS ORDERED: ROSU10TA28 PO (11:38)
[2019-06-06] MEDS ORDERED: METF-397 PO (11:38)
[2019-06-06] MEDS ORDERED: PRD10T PO (11:38)
[2019-06-06] MEDS ORDERED: FURO20TA4 PO (11:38)
[2019-06-06] MEDS ORDERED: NFIPRATRNS NS (11:38)
--- NOTE | 2019-06-06 11:52 | NUR ---
PATIENT HAD A LIST OF HIS MEDICATIONS. I COMPARED THAT LIST WITH THE EXT MED HX. WE WENT THROUGH EACH MEDICATION AND HE VERIFIED HOW HE TAKES THEM. HE STATES HE TAKES A 2.5MG DOSE OF PREDNISONE DAILY A MAINTENANCE DOSE DESPITE ANY TAPER OR SHORT TERM THERAPY HE IS TAKING. HE STARTED A TAPER ON MONDAY, HE DID NOT GET A SCRIPT FILLED BECAUSE HE HAD 10MG TABS ON HAND AT HOME FROM PREVIOUS SCRIPTS. HE STATES HE TOOK 60MG MONDAY AND MONDAY, TODAY HE TOOK 40MG AND WOULD CONTINUE TAPERING BUT HE DOES NOT LIKE THE WAY THE 60MG MADE HIM FEEL AND PREFERS NOT TO TAKE MORE THAN 40MG A DAY IN THE FUTURE. HE HAS NOT TAKE HIS 2.5MG DOSE YET TODAY BUT DOES NORMALLY TAKE IT IN ADDITION TO THE TAPER SCHEDULE DOSE. HE IS PAST DUE FOR REFILL ON THE FOLLOWING MEDS, I NOTED THE PAST DUE FILL DATE ON THE MED REC BUT HE STATES HE IS STILL TAKING THEM: 02-18-19 POTASSIUM 20MEQ 2 DAILY #180 02-16-19 AMLODIPINE 5MG DAILY #90 01-16-19 METOPROLOL XL 25MG DAILY #90 HE STATES HE DOES HAVE NITROGLYCERIN ON HAND AT HOME IF NEEDED BUT HE NEVER TAKES IT. HE TAKES THE FOLLOWING DIFFERENTLY THAN PRESCRIBED: 06-03-19 IPRATROPIUM NASAL SPRAY 2 SPRAYS TID PRN (STATES HE DOES 2 SPRAYS BID SCHEDULED) 01-28-19 METFORMIN 500MG BID #180 (STATES THIS WAS DECREASED TO 1/2 TAB BID) HE TAKES THE FOLLOWING OTC: MAG 400MG DAILY NASACORT NASAL SPRAY 2 SPRAYS HS CARDIO OMEGA 3 CAPS BID ALEVE 2 TABS PRN MTV DAILY MUCINEX DM 1200MG BID ZYRTEC 10MG DAILY ASPIRIN 81MG HS NEXIUM OTC 20MG TAB BID (STATES HE USED TO TAKE RANITIDINE BUT HAS SWITCHED TO THIS SINCE RANITIDINE HAS BEEN RECALLED)
[2019-06-06] MEDS ORDERED: RT-ALBUTEROL/IPRATROPIUM 3 ML (DUONEB) VIAL INH PRN (14:00)
--- NOTE | 2019-06-06 14:19 | History & Physical-Hospitalist ---
History of Present Illness HPI/Chief Complaint Patient is an 79-year-old male with past medical history of COPD, coronary artery disease status post CABG who presented to the ER due to shortness of breath. He has end stage COPD at baseline and wears 6lpm ch ronically. He was seen by his testing engineer Dr Piña a couple of days ago and started on prednisone. He was prescribed 60mg and though the first day helped but after that did not think it was helping and states he is "convinced it doesn't work" for him. He reports cough without sputum production. He is otherwise dyspneic with conversation and history is somewhat limited. Source: patient, family Date Seen 06/06/19 Time Seen by a Provider: 14:15 Attending Physician Jelena Alejandro MD PCP Monty Briceno DO Referring Physician Date of Admission Jun 06, 2019 at 09:23 Home Medications & Allergies Home Medications Reviewed patient Home Medication Reconciliation performed by pharmacy medication reconciliations photographic laboratory technician and/or nursing. Patients Allergies have been reviewed. Allergies Allergies Coded Allergies ciclopirox (Unverified Allergy, Mild, 06/06/19) itraconazole (Unverified Allergy, Mild, 06/06/19) propoxyphene (Unverified Allergy, Mild, 06/06/19) Past Ldwekrt-Ezikgw-Xpdlmz Hx Past Med/Social Hx: Reviewed Nursing Past Med/Soc Hx Patient Social History Alcohol Use: Occasionally Uses Number of Drinks Today: 0 Alcohol Beverage of Choice: Wine Recreational Drug Use: No Smoking Status: Former Smoker Former Smoker, Quit: May 22, 1968 Type Used: Cigarettes 2nd Hand Smoke Exposure: No Recent Foreign Travel: No Contact w/other who traveled: No Recent Hopitalizations: No Recent Infectious Disease Expo: No Immunizations Up To Date Tetanus Booster (TDap): Unknown Date of Pneumonia Vaccine: Sep 02, 2014 Date of Influenza Vaccine: Feb 19, 2019 Seasonal Allergies Seasonal Allergies: No Past Medical History Surgeries: CABG Cardiac: Coronary Artery Disease Reproductive: No Endocrine: Diabetes, Non-Insulin dep HEENT: Cataract Loss of Vision: Denies Hearing Impairment: Denies Cancer: Skin History of Blood Disorders: No (LIVED IN [place] DURING "MAD COW OUTBREAK" UNABLE TO DONATE BLOOD OR ORGAN) Adverse Reaction to Blood [place]: No Family History Reviewed Nursing Family Hx Alzheimer's disease 19 FATHER Hypertension 19 MOTHER Scarlet fever 19 MOTHER Review of Systems Constitutional: No chills, No fever EENTM: no symptoms reported Respiratory: cough, dyspnea on exertion; No phlegm; short of breath Cardiovascular: no symptoms reported Gastrointestinal: no symptoms reported Genitourinary: no symptoms reported Musculoskeletal: no symptoms reported Skin: no symptoms reported Psychiatric/Neurological: No Symptoms Reported Physical Exam Physical Exam Vital Signs Vital Signs - First Documented 06/06/19 06/06/19 08:07 08:36 Temp 37.2 Pulse 80 Resp 25 B/P (MAP) 197/94 (128) Pulse Ox 96 O2 Delivery Nasal Cannula O2 Flow Rate 15.00 FiO2 40 Capillary Refill : Less Than 3 Seconds Height, Weight, BMI Height: 5'11" Weight: 178lbs. 0.0oz. 80.711954ml; 25.43 BMI Method:Stated General Appearance: Chronically ill, Moderate Distress HEENT: Moist Mucous Membranes; No Scleral Icterus (L), No Scleral Icterus (R) Neck: Normal Inspection, Supple Respiratory: Accessory Muscle Use, Respiratory Distress, Rhonci; No Stridor Cardiovascular: Regular Rate, Rhythm, No Murmur Gastrointestinal: Normal Bowel Sounds, Non Tender, Soft Extremity: No Calf Tenderness, No Pedal Edema Neurologic/Psychiatric: Alert, Oriented x3, Normal Mood/Affect Skin: Warm/Dry, Pallor Results Results/Procedures Labs Laboratory Tests 06/06/19 08:10 06/06/19 22:27 06/07/19 03:11 Patient resulted labs reviewed. Imaging: Reviewed Imaging Report Imaging Date of Exam:06/06/19 CHEST 1 VIEW, AP/PA ONLY INDICATION: Shortness of breath. COMPARISON: 04/15/2019 FINDINGS: Single view of the chest demonstrates cardiac enlargement without overt pulmonary edema. COPD is present with stable chronic interstitial changes in the lung bases. There is stable volume loss in the left base. Underlying acute infiltrate is not fully excluded. There is no pneumothorax. There is a stable nodule in the medial left lung base. IMPRESSION: COPD with chronic interstitial changes. Underlying acute infiltrate not fully excluded. Assessment/Plan Admission Diagnosis Acute on Chronic Respiratory Failure Admission Status: Inpatient Order (span 2 midnights) Reason for Inpatient Admission: failed outpatient management, high risk for decompensation and will likely end up on ventilator Assessment and Plan Acute on Chronic Respiratory Failure COPD with acute exacerbation Place on BiPAP as failing Vapotherm Continue steroids Consulted Dr Piña, appreciate recs Discussed with Dr Piña who will see this afternoon, may need intubation but could benefit from hospice/comfort measures ABG ordered CAD s/p CABG Tricupsid regurgitation Echo 02/2019 shows preserved EF with grade 1 diastolic dysfunction and mod/severe tricuspid regurg BNP elevated, will repeat echo Cardiology consulted, discussed with Dr Jefferson who will see Check Troponin CKD Hyperkalemia- mild At baseline Trend Clinical Quality Measures DVT/VTE Risk/Contraindication: Risk Factor Score Per Nursin RFS Level Per Nursing on Admit: 4+=Very High JELENA ALEJANDRO MD Jun 06, 2019 14:19
[2019-06-06 14:48] LABS: ABG BASE EXCESS -0.8 MMOL/L (-2.5-2.5); ABG OXYGEN SATURATION 99 % (94-100); ABG PCO2 47 MMHG (35-45); ABG PO2 123 MMHG (79-93); ABG TCO2 25.7 MMOL/L (21.0-31.0)
[2019-06-06 14:49] LABS: ALLENS TEST POSITIVE
[2019-06-06 14:50] LABS: ABG PH 7.33 (7.37-7.43); INSPIRED O2 40% BIPAP 15/5; PATIENT TEMP 37.4; VENTILATOR NO
[2019-06-06] MEDS ORDERED: NITROGLYCERIN 0.4 MG SL TABS BTL 25'S SL PRN (15:00)
[2019-06-06] MEDS ORDERED: guaiFENesin/CODEINE (ROBITUSSIN AC) 10ML UDC PO PRN (15:45)
--- NOTE | 2019-06-06 16:07 | Consultation-Cardiology ---
HPI-Cardiology Cardiology Consultation Date of Consultation 06/06/19 Date of Admission Time Seen by Provider: 16:02 Indication: Dyspnea HPI 79 years old gentleman with history of coronary artery disease, CABG, COPD, has been having increasing shortness of breath for the past few days which has been worsening, increased sputum production. No chest pain. No palpitation. On my evaluation patient was on BiPAP, short of breath, unable to provide history, history was obtained by interviewing his , still having significant dyspnea. Noted to have elevated BNP. Home Medications & Allergies Allergies: Coded Allergies: ciclopirox (Unverified Allergy, Mild, 06/06/19) itraconazole (Unverified Allergy, Mild, 06/06/19) propoxyphene (Unverified Allergy, Mild, 06/06/19) Home Medication List Reviewed: Yes QYE-Hhwgxj-Ogpuhn Hx Patient Social History Marital Status: Employed/Student: retired Alcohol Use: Occasionally Uses Recreational Drug Use: No Smoking Status: Former Smoker Former smoker/When Quit: Jan 20, 1994 Type Used: Cigarettes 2nd Hand Smoke Exposure: No Recent Foreign Travel: No Recent Infectious Disease Expo: No Recent Hopitalizations: No Immunizations Up To Date Tetanus Booster (TDap): Unknown Date of Pneumonia Vaccine: Sep 02, 2014 Date of Influenza Vaccine: Feb 19, 2019 Past Medical History Discussed below Family Medical History Family History: Alzheimer's disease 19 FATHER Hypertension 19 MOTHER Scarlet fever 19 MOTHER Review of Systems-General Review of Systems Constitutional: No chills, No fever EENTM: no symptoms reported Respiratory: cough, dyspnea on exertion; No phlegm; short of breath Cardiovascular: no symptoms reported, see HPI, edema Gastrointestinal: no symptoms reported Genitourinary: no symptoms reported Musculoskeletal: no symptoms reported Skin: no symptoms reported Psychiatric/Neurological: No Symptoms Reported Reviewed Test Results Reviewed Test Results Lab Laboratory Tests Test 06/06/19 08:10 06/06/19 13:45 Range/Units White Blood Count 13.7 H 4.3-11.0 10^3/uL Red Blood Count 4.14 L 4.35-5.85 10^6/uL Hemoglobin 12.1 L 13.3-17.7 G/DL Hematocrit 37 L 40-54 % Mean Corpuscular Volume 90 80-99 FL Mean Corpuscular Hemoglobin 29 25-34 PG Mean Corpuscular Hemoglobin Concent 32 32-36 G/DL Red Cell Distribution Width 14.9 H 10.0-14.5 % Platelet Count 183 130-400 10^3/uL Mean Platelet Volume 11.7 H 7.4-10.4 FL Neutrophils (%) (Auto) 65 42-75 % Lymphocytes (%) (Auto) 21 12-44 % Monocytes (%) (Auto) 12 0-12 % Eosinophils (%) (Auto) 1 0-10 % Basophils (%) (Auto) 0 0-10 % Neutrophils # (Auto) 8.9 H 1.8-7.8 X 10^3 Lymphocytes # (Auto) 2.9 1.0-4.0 X 10^3 Monocytes # (Auto) 1.7 H 0.0-1.0 X 10^3 Eosinophils # (Auto) 0.1 0.0-0.3 10^3/uL Basophils # (Auto) 0.0 0.0-0.1 10^3/uL Sodium Level 137 135-145 MMOL/L Potassium Level 5.2 H 3.6-5.0 MMOL/L Chloride Level 104 98-107 MMOL/L Carbon Dioxide Level 22 21-32 MMOL/L Anion Gap 11 5-14 MMOL/L Blood Urea Nitrogen 29 H 7-18 MG/DL Creatinine 1.34 H 0.60-1.30 MG/DL Estimat Glomerular Filtration Rate 51 BUN/Creatinine Ratio 22 Glucose Level 134 H 70-105 MG/DL Calcium Level 9.3 8.5-10.1 MG/DL Corrected Calcium 9.0 8.5-10.1 MG/DL Magnesium Level 1.9 1.6-2.4 MG/DL Total Bilirubin 0.3 0.1-1.0 MG/DL Aspartate Amino Transf (AST/SGOT) 36 H 5-34 U/L Alanine Aminotransferase (ALT/SGPT) 32 0-55 U/L Alkaline Phosphatase 47 40-136 U/L Troponin I < 0.028 <0.028 NG/ML B-Type Natriuretic Peptide 361.8 H <100.0 PG/ML Total Protein 7.0 6.4-8.2 GM/DL Albumin 4.4 3.2-4.5 GM/DL Blood Gas Puncture Site RIGHT RADIAL Blood Gas Patient Temperature 37.4 Arterial Blood pH 7.33 *L 7.37-7.43 Arterial Blood Partial Pressure CO2 47 H 35-45 MMHG Arterial Blood Partial Pressure O2 123 H 79-93 MMHG Arterial Blood HCO3 24 23-27 MMOL/L Arterial Blood Total CO2 25.7 21.0-31.0 MMOL/L Arterial Blood Oxygen Saturation 99 94-100 % Arterial Blood Base Excess -0.8 -2.5-2.5 MMOL/L Florentin Test POSITIVE Blood Gas Ventilator Setting NO Blood Gas Inspired Oxygen 40% BIPAP 15/5 Physical Exam Physical Exam Vital Signs Vital Signs - First Documented 06/06/19 06/06/19 08:07 08:36 Temp 37.2 Pulse 80 Resp 25 B/P (MAP) 197/94 (128) Pulse Ox 96 O2 Delivery Nasal Cannula O2 Flow Rate 15.00 FiO2 40 Capillary Refill : Less Than 3 Seconds Height, Weight, BMI Height: 5'11" Weight: 178lbs. 0.0oz. 80.406499id; 25.43 BMI Method:Stated General Appearance: Chronically ill, Moderate Distress Eyes: Bilateral Eye Normal Inspection, Bilateral Eye PERRL, Bilateral Eye EOMI HEENT: Moist Mucous Membranes; No Scleral Icterus (L), No Scleral Icterus (R) Neck: Normal Inspection, Supple Respiratory: Accessory Muscle Use, Respiratory Distress, Rhonci; No Stridor Cardiovascular: Regular Rate, Rhythm, No Murmur Gastrointestinal: Normal Bowel Sounds, Non Tender, Soft Back: Normal Inspection, No CVA Tenderness, No Vertebral Tenderness Extremity: No Calf Tenderness, Pedal Edema (Trace edema) Neurologic/Psychiatric: Alert, Oriented x3, Normal Mood/Affect Skin: Warm/Dry, Pallor Lymphatic: No Adenopathy A/P-Cardiology Admission Diagnosis Acute respiratory failure Coronary artery disease Congestive heart failure Hypertension Assessment/Plan Acute respiratory failure, acute exacerbation of COPD, had some element of congestive heart failure, had history of left ventricular systolic dysfunction. I will evaluate 2-D echo, I will give one dose of lasix and evaluate response Severe COPD, oxygen dependent at home, started on prednisone as an outpatient. followed and managed by primary care physician Congestive heart failure, acute on chronic left ventricular systolic dysfunction, planning to repeat 2-D echocardiogram. Coronary artery disease, history of CABG 5 done in 2003 using CRISOSTOMO to LAD, vein graft to the first OM, second OM, diagonal and right coronary artery. Had left upper lobe lung reduction was resection of massive bullae. Has been doing well. Dr. Hawkins performed stenting of the LAD using 3.5 x 12 mm Promus Premeire, another stent to the circumflex artery using 4.0 x 8mm and balloon angioplasty to the OM 3 using 2.515 mm in May 2014. Most recent cardiac catheterization September 25, 2014 revealed moderate disease in the left main coronary artery, patent stent in the proximal LAD and first obtuse marginal branch. Small vessel disease distally. The third obtuse marginal branch had balloon angioplasty in May 2014, still patent with 70 percent ostial stenosis; medical therapy recommended. Patent vein graft to the diagonal artery and vein graft to RCA with small vessel disease distally. Known occluded vein graft to the OM branch and occluded CRISOSTOMO to LAD. EF 40- 45%, improved compared to May 2014. Continue to monitor. Severe carotid stenosis, followed and monitored by heart and vascular care Hypertension, continue to monitor blood pressure Hyperlipidemia, monitor lipids History of bifascicular block, EKG showed sinus rhythm with right bundle branch block, left anterior fascicular block, continue to monitor Diabetes mellitus, followed and managed by primary care physician. Clinical Quality Measures DVT/VTE Risk/Contraindication: Risk Factor Score Per Nursin RFS Level Per Nursing on Admit: 4+=Very High GERARDO ZALDIVAR MD Jun 06, 2019 16:07
[2019-06-06] MEDS ORDERED: FUROSEMIDE 40 MG/4 ML INJ (LASIX) IVP ONE (16:15)
[2019-06-06] MEDS ORDERED: FUROSEMIDE 40 MG/4 ML INJ (LASIX) ONE (16:22)
--- NOTE | 2019-06-06 17:15 | NUR ---
PATIENT TO ROOM CU-[address] AT THIS TIME PER DR. MIMS'S ORDERS VIA CART. PATIENT WAS ON BIPAP AT TIME OF TRANSPORT TO ICU ROOM 8. THIS RN WAS ACCOMPANIED BY RT OLIVIER. REPORT GIVEN TO JAMIE HODGSON WHO WILL ASSUME CARE OF THIS PATIENT AT THIS TIME.
[2019-06-06] MEDS: RT-ALBUTEROL/IPRATROPIUM 3 ML (DUONEB) VIAL INH SCH ×2 (18:26→22:10)
[2019-06-06 18:39] LABS: ABG BASE EXCESS 0.6 MMOL/L (-2.5-2.5); ABG OXYGEN SATURATION 97 % (94-100); ABG PCO2 47 MMHG (35-45); ABG PH 7.35 (7.37-7.43); ABG PO2 89 MMHG (79-93); ABG TCO2 26.8 MMOL/L (21.0-31.0)
[2019-06-06 18:50] LABS: ALLENS TEST POSITIVE; INSPIRED O2 50% BIPAP 30%; PATIENT TEMP 37.4; VENTILATOR NO
[2019-06-06] MEDS: FLUTICASONE NASAL SPRAY (FLONASE) 16 GM BTL NS SCH (19:27)
[2019-06-06] MEDS: RT-ADVAIR HFA 115/21 MCG PER PUFF IH SCH (19:27)
[2019-06-06] MEDS: ROSUVASTATIN 10 MG (CRESTOR) TABLET PO SCH (19:28)
[2019-06-06] MEDS: MONTELUKAST 10 MG (SINGULAIR) TAB PO SCH (19:28)
[2019-06-06] MEDS: DexMEDEtomidine 250 ML DRIP 250 ML IV SCH (20:16)
[2019-06-06] MEDS ORDERED: PANTOPRAZOLE 20 MG TABLET (PROTONIX) PO SCH (21:00)
[2019-06-06] MEDS ORDERED: methylPREDNISolone 125 MG (Solu-MEDROL) VIAL IVP SCH (21:00)
[2019-06-06] MEDS ORDERED: IPRATROPIUM BROMIDE NS SCH (21:00)
[2019-06-06] MEDS ORDERED: [UNRECOGNIZED DRUG - OTHER] PO SCH (21:00)
[2019-06-06] MEDS ORDERED: methylPREDNISolone 125 MG (Solu-MEDROL) VIAL ONE (21:01)
[2019-06-06] MEDS ORDERED: NS IV 1000 ML 1,000 ML ONE (21:43)
[2019-06-06] MEDS ORDERED: PROPOFOL DRIP (ICU) 100 ML IV ONE (21:58)
[2019-06-06] MEDS ORDERED: PROPOFOL DRIP (ICU) 100 ML IV SCH (22:15)
[2019-06-06] MEDS ORDERED: NS IV 1000 ML 1,000 ML IV SCH (22:15)
[2019-06-06 22:55] LABS: ALBUMIN 3.8 GM/DL (3.2-4.5); BUN/CREATININE RATIO 21; CALCIUM 8.5 MG/DL (8.5-10.1); CARBON DIOXIDE 20 MMOL/L (21-32); CHLORIDE 103 MMOL/L (98-107); CREATININE SERUM 1.34 MG/DL (0.60-1.30); GFR ESTIMATED 51; GLUCOSE 170 MG/DL (70-105); MAGNESIUM 2.2 MG/DL (1.6-2.4); SODIUM 135 MMOL/L (135-145); TRIGLYCERIDES 119 MG/DL (<150)
--- NOTE | 2019-06-06 23:46 | Procedure/Intervention Note ---
Procedures/Interventions Reason for Intubation: COPD, acute respiratory failure Date of ETT Placement: Jun 06, 2019 Time of ETT Placement: 21:59 Intubation Method: orotracheal Tube Size: 8.0 Medications: Etomidate (40mg), Rocuronium (50mg) Positive End Tide CO2: Yes Breath Sounds after Intubation: bilateral-equal (negative for sounds over the epigastrium) Intubation Complications: oral-unsuccessful attempt (1) Post Intubation Xray: Yes good placement 3-4 cm above the dong without pneumothorax Patient was positioned, suction, bougie, team were available. We used a glidoscope and a 4 Stephany. The initial view with a kaleidoscope we can see the bottom half of the vocal cords and the airway was dry with no emesis. However because of his kyphosis it was difficult to get a good angle to intubate so we removed the glidoscope and continued to bag valve mask ventilate. Oxygen sats never got below 100%. We took a second look using a 4 Stephany and were able to get a good view of the three quarters bottom/posterior of the vocal cords and easily passed an 8.0 ET tube down to 24 at the teeth. We had good colorimetric change on the capnography paper. We had good lung rise bilaterally and symmetrically as well as symmetric breath sounds. The tube was followed on exhalation. There were no breath sounds heard over the epigastric region. Patient's oxygen sats remained 100%. Chest x-ray was obtained and reviewed. EICU took control the patient and was putting in orders for sedation and ventilator management. JAX LINARES Jun 06, 2019 23:45
[2019-06-07] VITALS (31 sets, daily range): BP systolic 84–158; BP diastolic 28–94
[2019-06-07] MEDS ORDERED: inSUlin ASPART (NovoLOG) 1 UNIT/0.01 ML (CHARGE PER UNIT) SC SCH
[2019-06-07 00:21] LABS: ABG BASE EXCESS -3.6 MMOL/L (-2.5-2.5); ABG OXYGEN SATURATION 98 % (94-100); ABG PCO2 44 MMHG (35-45); ABG PO2 99 MMHG (79-93); ABG TCO2 23.2 MMOL/L (21.0-31.0)
[2019-06-07 00:23] LABS: ALLENS TEST POSITIVE; INSPIRED O2 40%; PATIENT TEMP 35.9; VENTILATOR NO
[2019-06-07 00:24] LABS: ABG PH 7.31 (7.37-7.43)
[2019-06-07] MEDS: inSUlin ASPART (NovoLOG) 1 UNIT/0.01 ML (CHARGE PER UNIT) SC SCH ×6 (00:28→20:39)
[2019-06-07] MEDS: NS IV 1000 ML 1,000 ML IV SCH ×3 (00:38→16:53)
[2019-06-07] MEDS ORDERED: SODIUM BICARB 8.4% 50 MEQ/50 ML VIAL ONE ×2 (00:59→04:39)
[2019-06-07] MEDS ORDERED: SODIUM BICARB 8.4% 50 MEQ/50 ML VIAL IV ONE (01:15)
--- NOTE | 2019-06-07 01:29 | NUR ---
TIMELINE NOTE- 2129-THIS RN NOTIFIED E-ICU OF PT INCREASED WORK OF BREATHING, MENTAL STATUS CHANGE, C/O CHEST PAIN, IMPENDING DOOM-E-ICU SANJANA'Anival IN-ORDERS FOR INTUBATION 2139-DR LINARES IN ROOM 2149-NS BOLUS STARTED, 20MG OF ETOMIDATE ADMIN PER DR LINARES 2154-20 ETOMIDATE AND [address] LINARES 2158-PT INTUBATED WITH SIZE 8 ETT, 24 AT THE TEETH-BILAT BREATH SOUNDS VERIFIED BY DR LINARES 2203-OG PLACED-CHEST XRAY TO CONFIRM ETT AND OG PLACEMENT.
[2019-06-07] MEDS: RT-ALBUTEROL/IPRATROPIUM 3 ML (DUONEB) VIAL INH SCH ×6 (01:48→21:33)
[2019-06-07 01:52] LABS: BILIRUBIN,URINE NEGATIVE (NEGATIVE); CLARITY,URINE CLEAR; COLOR,URINE ORANGE; GLUCOSE, URINE (UA) NEGATIVE (NEGATIVE); KETONES,URINE NEGATIVE (NEGATIVE); LEUKOCYTE ESTERASE ,URINE TRACE (NEGATIVE); NITRITE,URINE NEGATIVE (NEGATIVE); PROTEIN,URINE 2+ (NEGATIVE)
[2019-06-07 01:59] LABS: BACTERIA,URINE FEW /HPF; HYALINE CASTS, URINE RARE /LPF; RBC,URINE 50-100 /HPF; SQUAMOUS EPITHELIAL CELL,UR 0-2 /HPF; WBC,URINE 25-50 /HPF
[2019-06-07] MEDS: fentaNYL INJECTION 100 MCG/2 ML AMP IV PRN ×2 (03:15→05:58)
[2019-06-07 03:20] LABS: BASOPHILS % (AUTO) 0 % (0-10); EOSINOPHILS % (AUTO) 0 % (0-10); HEMATOCRIT 35 % (40-54); HEMOGLOBIN 11.1 G/DL (13.3-17.7); LYMPHOCYTES # (AUTO) 1.5 X 10^3 (1.0-4.0); LYMPHOCYTES % (AUTO) 18 % (12-44); MEAN CORPUSCULAR HEMOGLOBIN 29 PG (25-34); MEAN CORPUSCULAR HGB CONC 32 G/DL (32-36); MEAN CORPUSCULAR VOLUME 90 FL (80-99); MEAN PLATELET VOLUME 11.9 FL (7.4-10.4); MONOCYTES # (AUTO) 0.8 X 10^3 (0.0-1.0); MONOCYTES % (AUTO) 9 % (0-12); NEUTROPHILS # (AUTO) 6.2 X 10^3 (1.8-7.8); NEUTROPHILS % (AUTO) 73 % (42-75); PLATELET COUNT 129 10^3/uL (130-400); RED CELL DISTRIBUTION WIDTH 14.6 % (10.0-14.5); WHITE BLOOD COUNT 8.5 10^3/uL (4.3-11.0)
[2019-06-07 03:20] LABS: ABG BASE EXCESS 0.2 MMOL/L (-2.5-2.5); ABG OXYGEN SATURATION 97 % (94-100); ABG PCO2 40 MMHG (35-45); ABG PO2 78 MMHG (79-93); ABG TCO2 25.8 MMOL/L (21.0-31.0)
[2019-06-07 03:22] LABS: ALLENS TEST positive; INSPIRED O2 30%; PATIENT TEMP 36.3; VENTILATOR YES
[2019-06-07 03:42] LABS: ALBUMIN 3.6 GM/DL (3.2-4.5); BILIRUBIN,TOTAL 0.9 MG/DL (0.1-1.0); CALCIUM 8.2 MG/DL (8.5-10.1); CREATININE SERUM 1.76 MG/DL (0.60-1.30); MAGNESIUM 2.5 MG/DL (1.6-2.4); PHOSPHORUS 4.6 MG/DL (2.3-4.7); POTASSIUM 5.7 MMOL/L (3.6-5.0); TOTAL PROTEIN 5.7 GM/DL (6.4-8.2)
--- NOTE | 2019-06-07 04:00 | NUR ---
NOTIFIED DR MIMS OF LOW URINE OUTPUT
[2019-06-07] MEDS ORDERED: DEXTROSE 50% 50 ML (IMS) SYR ONE (04:39)
[2019-06-07] MEDS ORDERED: NS IV 1000 ML 1,000 ML IV SCH ×3 (04:45→12:45)
[2019-06-07] MEDS ORDERED: inSUlin (REGULAR) HUMAN 1 UNIT/0.01 ML (CHARGE PER UNIT) IV ONE (04:45)
[2019-06-07] MEDS ORDERED: SODIUM BICARB 8.4% 50 MEQ/50 ML (ABBOTT) SYR IV ONE (04:45)
[2019-06-07] MEDS: methylPREDNISolone 125 MG (Solu-MEDROL) VIAL IVP SCH ×4 (04:52→17:39)
[2019-06-07] MEDS ORDERED: cefTRIAXone 1,000 MG IV (ROCEPHIN) VIAL ONE (04:54)
[2019-06-07] MEDS ORDERED: WATER (STERILE) FOR INJECTION 10 ML ONE (04:54)
[2019-06-07] MEDS: cefTRIAXone FOR IV USE 1,000 MG in WATER (STERILE) FOR INJECTION 10 ML IV SCH (05:00)
[2019-06-07] MEDS: MAGNESIUM 1 GM/100 ML IVPB 100 ML IV SCH (05:05)
[2019-06-07] MEDS: POTASSIUM CL 10MEQ/50ML IVPB 50 ML IV SCH (05:05)
[2019-06-07] MEDS: KCL 20 MEQ TAB (K-DUR) PO SCH (05:06)
--- NOTE | 2019-06-07 06:06 | Diagnostic Imaging Report ---
EXAMINATION: AP upright portable chest INDICATION: Status post enteric and endotracheal tube placement. COMPARISON: Multiple priors, most recent performed earlier today. FINDINGS: There has been interval placement of an endotracheal tube, the distal tip of which is difficult to see secondary to technique. It appears to be in good position approximately 3 cm above the dong. Enteric tube tip projects over the gastric fundus. There is hyperexpansion of the lungs and flattening of the hemidiaphragms. Scattered calcified granulomas are demonstrated. There is chronic blunting of the left costophrenic angle, likely reflecting scarring, with small pleural effusion not excluded. The cardiomediastinal silhouette is unchanged. No pneumothorax is appreciated. No acute osseous abnormalities identified. IMPRESSION: Endotracheal and enteric tubes appear to be in good position. Chronic blunting of the left costophrenic angle. Dictated by: Dictated on workstation # [id number]
--- NOTE | 2019-06-07 06:49 | Diagnostic Imaging Report ---
INDICATION: Shortness of breath Portable chest 3:42 AM There are emphysematous changes in the lungs. There is an ET tube projecting over the trachea. There is an NG tube. It appears to enter the stomach. There are postoperative changes from CABG surgery. There is some left pleural scarring versus tiny effusion. IMPRESSION: COPD with some left basilar pleural scarring versus tiny effusion. No change from previous day. Dictated by: Dictated on workstation # [id number]
--- NOTE | 2019-06-07 07:17 | Pulmonary Consultation ---
History of Present Illness History of Present Illness Date Seen by Provider: Jun 06, 2019 (late note) Time Seen by Provider: 16:30 Date of Admission Reason for Visit: Dyspnea History of Present Illness 79yo with hx of severe oxygen dependent 6 l/min COPD presented to ED secondary to worsening SOB. He was started on prednisone as an out pt 2 days ago. He is currently on BiPAP and is waiting for ICU bed. at bedside. Pt states he is ok with intubation. is at bedside. I am consulted for ICU/pulmonary management. Allergies and Home Medications Allergies Coded Allergies: ciclopirox (Unverified Allergy, Mild, 06/06/19) itraconazole (Unverified Allergy, Mild, 06/06/19) propoxyphene (Unverified Allergy, Mild, 06/06/19) Home Medications Albuterol Sulfate 18 Gm Hfa.aer.ad, 2 PUFF INH QID PRN for SHORTNESS OF BREATH, (Reported) Amlodipine Besylate 5 Mg Tablet, 5 MG PO DAILY, (Reported) LAST FILLED #90 02-16-19 Aspirin 81 Mg Tablet.dr, 81 MG PO HS, (Reported) Budesonide/Formoterol Fumarate 10.2 Gm Hfa.aer.ad, 2 PUFF INH BID, (Reported) Cetirizine HCl 10 Mg Tablet, 10 MG PO DAILY, (Reported) Citalopram Hydrobromide 10 Mg Tablet, 10 MG PO HS, (Reported) Esomeprazole Magnesium 20 Mg Tablet.dr, 20 MG PO BID, (Reported) Furosemide 20 Mg Tablet, 20 MG PO Q72H, (Reported) Guaifenesin/Codeine Phosphate 118 Ml Liquid, 10 ML PO Q6H PRN for COUGH, (Reported) Guaifenesin/Pseudoephedrne HCl 1 Each Tab.er.12h, 1 TAB PO BID, (Reported) Ipratropium Craig 15 Ml Naspr, 2 SPRAY NS BID, (Reported) Losartan Potassium 100 Mg Tablet, 100 MG PO DAILY, (Reported) Magnesium Oxide 400 Mg Tablet, 400 MG PO DAILY, (Reported) Metformin HCl 500 Mg Tablet, 250 MG PO BID, (Reported) TAKES 1/2 (500MG) TABLET Metoprolol Succinate 25 Mg Tab.er.24h, 25 MG PO DAILY, (Reported) LAST FILLED #90 01-16-19 Montelukast Sodium 10 Mg Tablet, 10 MG PO HS, (Reported) Multivitamin 1 Each Tablet, 1 TAB PO DAILY, (Reported) Naproxen Sodium 220 Mg Tablet, 440 MG PO Q8H PRN for PAIN-MILD (1-4), (Reported) Nitroglycerin 0.4 Mg Tab.subl, 0.4 MG SL UD PRN for CHEST PAIN, (Reported) Mills-3S/Dha/Epa/Fish Oil/D3 1 Each Capsule, 3 CAP PO BID, (Reported) Potassium Chloride 20 Meq Tab.er.prt, 40 MEQ PO DAILY, (Reported) LAST FILLED #180 02-18-19 TAKES 2 (20MEQ) TABLETS Prednisone 2.5 Mg Tablet, 2.5 MG PO DAILY, (Reported) Prednisone 10 Mg Tab, PO UD, (Reported) 60MG X 2 DAYS 40MG X 2 DAYS 30MG X 2 DAYS 20MG X 2 DAYS 10MG X 2 DAYS STARTED 06-04-19 Rosuvastatin Calcium 10 Mg Tablet, 10 MG PO HS, (Reported) Sitagliptin Phosphate 100 Mg Tablet, 100 MG PO DAILY, (Reported) Triamcinolone Acetonide 10.8 Ml [place], 2 SPRAYS NS HS, (Reported) Umeclidinium Craig 62.5 Mcg Blst.w.dev, 1 PUFF INH DAILY, (Reported) Past Hpdqiqf-Mskwwq-Tqqkui Hx Past Med/Social Hx: Reviewed Nursing Past Med/Soc Hx Patient Social History Alcohol Use: Occasionally Uses Number of Drinks Today: 0 Alcohol Beverage of Choice: Wine Recreational Drug Use: No Smoking Status: Former Smoker Type Used: Cigarettes Former Smoker, Quit: May 22, 1968 2nd Hand Smoke Exposure: No Recent Foreign Travel: No Contact w/Someone Who Travel: No Recent Infectious Disease Expo: No Recent Hopitalizations: No Physical Abuse: No Sexual Abuse: No Immunizations Up To Date Tetanus Booster (TDap): Unknown Date of Pneumonia Vaccine: Sep 02, 2014 Date of Influenza Vaccine: Feb 19, 2019 Seasonal Allergies Seasonal Allergies: No Past Medical History Surgeries: Yes (R KNEE, L LUNG RESECTION, QUINTUPLE BYPASS, STENTS) CABG Respiratory: Yes (COPD, WEARS O2, ) Pneumonia, COPD Cardiac: Yes ( CHF) Coronary Artery Disease Neurological: No Reproductive Disorders: No Gastrointestinal: No Musculoskeletal: No Endocrine: Yes Diabetes, Non-Insulin dep Cataract Loss of Vision: Denies Hearing Impairment: Denies Cancer: Yes Skin Psychosocial: No Integumentary: No Blood Disorders: No (LIVED IN [place] DURING "MAD COW OUTBREAK" UNABLE TO DONATE BLOOD OR ORGAN) Adverse Reaction/Blood Tranf: No Family Medical History Reviewed Nursing Family Hx Alzheimer's disease 19 FATHER Hypertension 19 MOTHER Scarlet fever 19 MOTHER Review of Systems Time Seen by Provider: 07:15 Constitutional: Sweats, Weakness, Malaise; No: Fever, Chills, Other Eyes: No: Pain, Vision change, Conjunctivae inflammation, Eyelid inflammation, Other, Redness ENT: Nose congestion; No: Ear pain, Ear discharge, Nose pain, Nose discharge, Mouth pain, Mouth swelling, Throat pain, Throat swelling, Other Respiratory: Cough, Dry, Shortness of breath, SOB with excertion, Wheezing, Sputum; No: Hemoptysis, Pleuritic Pain, Wheezing, Other Cardiovascular: Palpitations, Paroxysmal Noc. Dyspnea; No: Chest Pain, Orthopnea, Edema, Lt Headedness, Other Gastrointestinal: No: Nausea, Vomiting, Abdominal Pain, Diarrhea, Constipation, Melena, Hematochezia, Other Sepsis Event Evaluation Height, Weight, BMI Height: 5'11" Weight: 178lbs. 0.0oz. 80.209209yw; 25.43 BMI Method:Stated Exam Exam Vital Signs Date Time Temp Pulse Resp B/P (MAP) Pulse Ox O2 Delivery O2 Flow Rate FiO2 06/07/19 06:00 62 17 123/94 (104) 94 Mechanical Ventilator 30.00 06/07/19 05:00 59 23 120/60 (80) 97 Mechanical Ventilator 30.00 06/07/19 04:00 Mechanical Ventilator 30 06/07/19 04:00 64 30 110/72 (85) 97 Mechanical Ventilator 30.00 06/07/19 03:00 71 31 131/54 (79) 96 Mechanical Ventilator 30.00 06/07/19 02:00 58 17 110/70 (83) 96 Mechanical Ventilator 30.00 06/07/19 01:48 56 24 96 30 06/07/19 01:16 Mechanical Ventilator 30.00 06/07/19 01:00 58 26 107/59 (75) 100 Mechanical Ventilator 40.00 06/07/19 01:00 62 06/07/19 00:00 Mechanical Ventilator 40 06/07/19 00:00 54 28 113/53 (73) 100 Mechanical Ventilator 40.00 06/06/19 23:00 61 25 100/69 (79) 99 Mechanical Ventilator 40.00 06/06/19 22:17 154/99 06/06/19 22:15 154/99 06/06/19 22:10 68 20 94 40 06/06/19 22:00 68 20 108/67 (81) 100 Mechanical Ventilator 40.00 06/06/19 21:00 73 19 126/76 (93) 98 NIV Bilevel 30.00 06/06/19 20:31 37.2 06/06/19 20:00 78 20 130/78 (95) 98 NIV Bilevel 30.00 06/06/19 20:00 NIV Bilevel 25 06/06/19 19:56 NIV Bilevel 30.00 06/06/19 19:17 Vapotherm 20.00 25.00 06/06/19 19:00 85 21 149/85 (106) 95 Vapotherm 20.00 50.00 06/06/19 19:00 87 06/06/19 18:26 68 27 100 25.00 06/06/19 18:26 68 27 100 25.00 06/06/19 18:00 73 21 162/98 (119) 100 Vapotherm 20.00 50.00 06/06/19 17:32 NIV Bilevel 30 06/06/19 17:00 76 24 163/82 (109) 98 Vapotherm 20.00 50.00 06/06/19 14:36 37.2 80 96 06/06/19 14:06 78 98 40.00 06/06/19 13:23 97 Vapotherm 30.00 40 06/06/19 12:32 36.2 84 26 186/80 95 Vapotherm 20.00 40.00 06/06/19 12:00 36.6 77 24 156/72 (100) 93 Vapotherm 20.00 50.00 06/06/19 10:00 95 Vapotherm 20.00 50 06/06/19 09:39 98 20.00 40 06/06/19 09:35 72 23 126/81 96 Vapotherm 06/06/19 08:36 98 Vapotherm 20.00 40 06/06/19 08:07 37.2 80 25 197/94 (128) 96 Nasal Cannula 15.00 I & O 06/07/19 07:00 Intake Total 2235 ml Output Total 1395 ml Balance 840 ml Height & Weight Height: 5'11" Weight: 178lbs. 0.0oz. 80.369079ka; 25.43 BMI Method:Stated General Appearance: Chronically ill, Moderate Distress HEENT: Moist Mucous Membranes; No Scleral Icterus (L), No Scleral Icterus (R) Neck: Normal Inspection, Supple Respiratory: Accessory Muscle Use, Respiratory Distress, Rhonci; No Stridor Cardiovascular: Regular Rate, Rhythm, No Murmur Capillary Refill: Less Than 3 Seconds Gastrointestinal: normal bowel sounds, non tender, soft Extremity: No Calf Tenderness, Pedal Edema (Trace edema) Neurologic/Psychiatric: Alert, Oriented x3, Normal Mood/Affect Skin: Warm/Dry, Pallor Lymphatic: No Adenopathy Results Lab Laboratory Tests 06/06/19 08:10 06/06/19 22:27 06/07/19 03:11 Assessment/Plan Assessment/Plan Acute on chronic respiratory failure -Pt will most likely need intubation COPDAE -BiPAP -Repeat ABG in 1hr -Solumedrol -Duo nebs CAD s/p CABG Grade 1 diastolic dysfunction and mod/severe tricuspid regurg BNP elevated, will repeat echo CKD NATE MIMS DO Jun 07, 2019 07:17
--- NOTE | 2019-06-07 07:23 | Pulmonary Progress Note ---
Subjective Date Seen by a Provider: Jun 07, 2019 Time Seen by a Provider: 07:19 Subjective/Events-last exam Pt is sedated on vent Sepsis Event Evaluation Height, Weight, BMI Height: 5'11" Weight: 178lbs. 0.0oz. 80.117879gj; 25.43 BMI Method:Stated Exam Exam Vital Signs Date Time Temp Pulse Resp B/P (MAP) Pulse Ox O2 Delivery O2 Flow Rate FiO2 06/07/19 06:00 62 17 123/94 (104) 94 Mechanical Ventilator 30.00 06/07/19 05:00 59 23 120/60 (80) 97 Mechanical Ventilator 30.00 06/07/19 04:00 Mechanical Ventilator 30 06/07/19 04:00 64 30 110/72 (85) 97 Mechanical Ventilator 30.00 06/07/19 03:00 71 31 131/54 (79) 96 Mechanical Ventilator 30.00 06/07/19 02:00 58 17 110/70 (83) 96 Mechanical Ventilator 30.00 06/07/19 01:48 56 24 96 30 06/07/19 01:16 Mechanical Ventilator 30.00 06/07/19 01:00 58 26 107/59 (75) 100 Mechanical Ventilator 40.00 06/07/19 01:00 62 06/07/19 00:00 Mechanical Ventilator 40 06/07/19 00:00 54 28 113/53 (73) 100 Mechanical Ventilator 40.00 06/06/19 23:00 61 25 100/69 (79) 99 Mechanical Ventilator 40.00 06/06/19 22:17 154/99 06/06/19 22:15 154/99 06/06/19 22:10 68 20 94 40 06/06/19 22:00 68 20 108/67 (81) 100 Mechanical Ventilator 40.00 06/06/19 21:00 73 19 126/76 (93) 98 NIV Bilevel 30.00 06/06/19 20:31 37.2 06/06/19 20:00 78 20 130/78 (95) 98 NIV Bilevel 30.00 06/06/19 20:00 NIV Bilevel 25 06/06/19 19:56 NIV Bilevel 30.00 06/06/19 19:17 Vapotherm 20.00 25.00 06/06/19 19:00 85 21 149/85 (106) 95 Vapotherm 20.00 50.00 1/16/20 19:00 87 06/06/19 18:26 68 27 100 25.00 06/06/19 18:26 68 27 100 25.00 06/06/19 18:00 73 21 162/98 (119) 100 Vapotherm 20.00 50.00 06/06/19 17:32 NIV Bilevel 30 06/06/19 17:00 76 24 163/82 (109) 98 Vapotherm 20.00 50.00 06/06/19 14:36 37.2 80 96 06/06/19 14:06 78 98 40.00 06/06/19 13:23 97 Vapotherm 30.00 40 06/06/19 12:32 36.2 84 26 186/80 95 Vapotherm 20.00 40.00 06/06/19 12:00 36.6 77 24 156/72 (100) 93 Vapotherm 20.00 50.00 06/06/19 10:00 95 Vapotherm 20.00 50 06/06/19 09:39 98 20.00 40 06/06/19 09:35 72 23 126/81 96 Vapotherm 06/06/19 08:36 98 Vapotherm 20.00 40 06/06/19 08:07 37.2 80 25 197/94 (128) 96 Nasal Cannula 15.00 I & O 06/07/19 07:00 Intake Total 2235 ml Output Total 1395 ml Balance 840 ml Height & Weight Height: 5'11" Weight: 178lbs. 0.0oz. 80.666472vb; 25.43 BMI Method:Stated General Appearance: Chronically ill, Moderate Distress HEENT: Moist Mucous Membranes; No Scleral Icterus (L), No Scleral Icterus (R) Neck: Normal Inspection, Supple Respiratory: Accessory Muscle Use, Respiratory Distress, Rhonci; No Stridor Cardiovascular: Regular Rate, Rhythm, No Murmur Capillary Refill: Less Than 3 Seconds Gastrointestinal: normal bowel sounds, non tender, soft Extremity: No Calf Tenderness, Pedal Edema (Trace edema) Neurologic/Psychiatric: Alert, Oriented x3, Normal Mood/Affect Skin: Warm/Dry, Pallor Lymphatic: No Adenopathy Results Lab Laboratory Tests 06/06/19 08:10 06/06/19 22:27 1/17/20 03:11 Assessment/Plan Assessment/Plan Acute on chronic respiratory failure -Continue ventilator care -I talked with daughter who is a doctor on phone and answered all questions. -Will start rocephin and azithromycin for now COPDAE -Solumedrol -Duo nebs CAD s/p CABG Grade 1 diastolic dysfunction and mod/severe tricuspid regurg BNP elevated, will repeat echo Hyperkalemia -Will treat with insulin, bicarb and IVF -Repeat later today acute on CKD -IVF and monitor NATE MIMS DO Jun 07, 2019 07:23
--- NOTE | 2019-06-07 08:09 | Physical Therapy Progress Note ---
Therapy Progress Note Patient is currently sedated and intubated. PT will continue to monitor patient's medical status and assess when medically stable and able to actively participate with skilled therapy. LILLIE SCHAFFER PT Jun 07, 2019 08:09
--- NOTE | 2019-06-07 08:10 | Progress Note - Hospitalist ---
Subjective HPI/CC On Admission Date Seen by Provider: Jun 07, 2019 Time Seen by Provider: 08:05 Patient is an 79-year-old male with past medical history of COPD, coronary artery disease status post CABG who presented to the ER due to shortness of breath. He has end stage COPD at baseline and wears 6lpm chronically. He was seen by his sleeve machine tender Dr Piña a couple of days ago and started on prednisone. He was prescribed 60mg and though the first day helped but after that did not think it was helping and states he is "convinced it doesn't work" for him. He reports cough without sputum production. He is otherwise dyspneic with conversation and history is somewhat limited. Subjective/Events-last exam Pt is intubated and sedated. No family at bedside. Reviewed events from last night. Intubated overnight. Objective Exam Vital Signs Vital Signs Date Time Temp Pulse Resp B/P (MAP) Pulse Ox O2 Delivery O2 Flow Rate FiO2 06/07/19 07:35 37.70510 62 17 123/94 94 Mechanical Ventilator 20.00 06/07/19 04:00 30 Capillary Refill : Less Than 3 Seconds General Appearance: Chronically ill, Other (sedated and on the vent) Respiratory: Rhonci, Other (on vent) Cardiovascular: No Murmur, Tachycardia Gastrointestinal: Normal Bowel Sounds, Soft Genital/Rectal: Other (nieves in place) Neurologic/Psychiatric: Other (sedated, appears comfortable) Results/Procedures Lab Laboratory Tests 06/06/19 08:10 06/06/19 22:27 06/07/19 03:11 Patient resulted labs reviewed. Imaging: Reviewed Imaging Report Assessment/Plan Assessment and Plan Assess & Plan/Chief Complaint Acute on Chronic Respiratory Failure COPD with acute exacerbation Intubated 06/06 PM Continue steroids Consulted Dr Piña, appreciate recs Rocephin and Azithro ordered CAD s/p CABG Tricupsid regurgitation Echo 02/2019 shows preserved EF with grade 1 diastolic dysfunction and mod/severe tricuspid regurg BNP elevated, will repeat echo Cardiology consulted, appreciate recs CKD Hyperkalemia- mild At baseline Trend Hold Losartan Diagnosis/Problems Diagnosis/Problems (1) Respiratory failure Status: Acute Qualifiers: Chronicity: acute (2) CKD (chronic kidney disease) Status: Chronic Qualifiers: Chronic kidney disease stage: stage 3 (moderate) Qualified Codes: N18.3 - Chronic kidney disease, stage 3 (moderate) (3) Hyperkalemia Status: Chronic (4) CAD (coronary artery disease) Status: Chronic Qualifiers: Coronary Disease-Associated Artery/Lesion type: bypass graft [place] vs. transplanted heart: [place] heart Associated angina: without angina Qualified Codes: I25.810 - Atherosclerosis of coronary artery bypass graft(s) without angina pectoris (5) Acute exacerbation of chronic obstructive pulmonary disease (COPD) Status: Acute (6) Pulmonary edema Status: Acute Qualifiers: Chronicity: acute Qualified Codes: J81.0 - Acute pulmonary edema Clinical Quality Measures DVT/VTE Risk/Contraindication: Risk Factor Score Per Nursin RFS Level Per Nursing on Admit: 4+=Very High ANTHONY GARCIA MD Jun 07, 2019 08:10
[2019-06-07] MEDS ORDERED: ENOXAPARIN 40 MG/0.4 ML (LOVENOX) SYR SQ SCH (08:15)
[2019-06-07 08:24] LABS: ABG BASE EXCESS 0.7 MMOL/L (-2.5-2.5); ABG OXYGEN SATURATION 91 % (94-100); ABG PCO2 53 MMHG (35-45); ABG PO2 63 MMHG (79-93); ABG TCO2 28.1 MMOL/L (21.0-31.0)
[2019-06-07] MEDS: RT-ADVAIR HFA 115/21 MCG PER PUFF IH SCH ×2 (08:24→21:33)
[2019-06-07 08:25] LABS: ALLENS TEST YES-POS; INSPIRED O2 30%; VENTILATOR YES
[2019-06-07 08:26] LABS: ABG PH 7.31 (7.37-7.43); PATIENT TEMP 36.4
[2019-06-07] MEDS: CHLORHEXIDINE 0.12% SOLN 15 ML (PERIDEX) UDC PO SCH ×2 (08:48→20:40)
[2019-06-07] MEDS: LORATADINE (CLARITIN) 10 MG TAB PO SCH (08:48)
[2019-06-07] MEDS: PANTOPRAZOLE 40 MG (PROTONIX) VIAL IV SCH ×2 (08:49→20:29)
[2019-06-07] MEDS ORDERED: AZITHROMYCIN INJECTION 500 MG in NS (IVPB) 250 ML IV ONE (09:00)
[2019-06-07] MEDS ORDERED: LOSARTAN 100 MG (COZAAR) TABLET PO SCH (09:00)
[2019-06-07] MEDS ORDERED: UMECLIDINIUM BROMIDE (INCRUSE ELLIPTA) 7'S IH SCH (09:00)
--- NOTE | 2019-06-07 09:09 | Cardiology Progress Note ---
Subjective Date Seen by Provider: Jun 07, 2019 Time Seen by Provider: 09:08 Subjective/Events-last exam Patient is sedated and intubated. Review of Systems General: Other (Sedated and intubated, unable to provide review of systems) Objective-Cardiology Exam Last Set of Vital Signs Vital Signs 06/07/19 06/07/19 06/07/19 07:35 08:00 08:24 Temp 37.09864 Pulse 57 Resp 20 B/P (MAP) 147/53 (84) Pulse Ox 95 O2 Delivery Mechanical Ventilator O2 Flow Rate 30.00 FiO2 30 Capillary Refill : Less Than 3 Seconds I&O Intake and Output 06/07/19 00:00 Intake Total 225 ml Output Total 1225 ml Balance -1000 ml Intake Oral 25 ml IV Total 200 ml Output Urine Total 1225 ml Daily Weight Change No No General: Other (Sedated and intubated) HEENT: Atraumatic Lungs: Normal Air Movement, Other (Bilateral rhonchi) Heart: Regular Rate, Normal S1, Normal S2 Abdomen: Normal Bowel Sounds Extremities: No Clubbing, No Edema Skin: No Rashes Neuro: Other (Sedated and intubated) Psych/Mental Status: Other (Sedated and intubated) Results Lab Laboratory Tests 06/06/19 22:27 06/07/19 03:11 A/P-Cardiology Admission Diagnosis Acute respiratory failure Coronary artery disease Congestive heart failure Hypertension Assessment/Plan Acute respiratory failure, acute exacerbation of COPD, intubated, managed by primary care team Severe COPD, oxygen dependent at home, currently ventilator dependent, managed by Dr. Piña Congestive heart failure, acute on chronic left ventricular systolic dysfunction, planning to repeat 2-D echocardiogram. Coronary artery disease, history of CABG 5 done in 2003 using CRISOSTOMO to LAD, vein graft to the first OM, second OM, diagonal and right coronary artery. Had left upper lobe lung reduction was resection of massive bullae. Has been doing well. Dr. Hawkins performed stenting of the LAD using 3.5 x 12 mm Promus Premeire, another stent to the circumflex artery using 4.0 x 8mm and balloon angioplasty to the OM 3 using 2.515 mm in May 2014. Most recent cardiac catheterization September 25, 2014 revealed moderate disease in the left main coronary artery, patent stent in the proximal LAD and first obtuse marginal branch. Small vessel disease distally. The third obtuse marginal branch had balloon angioplasty in May 2014, still patent with 70 percent ostial stenosis; medical therapy recommended. Patent vein graft to the diagonal artery and vein graft to RCA with small vessel disease distally. Known occluded vein graft to the OM branch and occluded CRISOSTOMO to LAD. EF 40- 45%, improved compared to May 2014. Continue to monitor. Severe carotid stenosis, followed and monitored by heart and vascular care Hypertension, continue to monitor blood pressure Hyperlipidemia, monitor lipids History of bifascicular block, EKG showed sinus rhythm with right bundle branch block, left anterior fascicular block, continue to monitor Diabetes mellitus, followed and managed by primary care physician. Clinical Quality Measures DVT/VTE Risk/Contraindication: Risk Factor Score Per Nursin RFS Level Per Nursing on Admit: 4+=Very High GERARDO ZALDIVAR MD Jun 07, 2019 09:09
--- NOTE | 2019-06-07 09:15 | NUR ---
[address] MIMS OF PT ABG RESULTS. ORDERS GIVEN TO CHANGE VENT SETTINGS AND REDRAW IN ONE HOUR. NURSE ALSO NOTIFIED DR MIMS PT URINE OUTPUT HAS ONLY BEEN 40 ML FOR THE LAST 2 HOURS. AFTER RECEIVING 2 LITER BOLUSES. ORDER GIVEN TO CONTINUE TO MONITOR AND CHANGE IVF RATE TO 150 ML/HR.
[2019-06-07] MEDS ORDERED: ROCURONIUM 10 MG/ML 5 ML SYRINGE IV ONE (10:04)
[2019-06-07] MEDS ORDERED: ETOMIDATE IV SOLN 20 MG/10 ML VIAL IV ONE (10:04)
--- NOTE | 2019-06-07 10:48 | Occ Therapy Progress Note ---
Therapy Progress Note Pt intubated/sedated at this time. OT to readdress when medically stable and able to participate in therapy services. EVITA FARMER OTR Jun 07, 2019 10:48
[2019-06-07 10:55] LABS: ABG BASE EXCESS -0.7 MMOL/L (-2.5-2.5); ABG OXYGEN SATURATION 92 % (94-100); ABG PCO2 47 MMHG (35-45); ABG PO2 64 MMHG (79-93); ALLENS TEST YES-POS; INSPIRED O2 30%; VENTILATOR YES
[2019-06-07 10:56] LABS: ABG PH 7.33 (7.37-7.43); PATIENT TEMP 36.3
--- NOTE | 2019-06-07 11:00 | NUR ---
Pastoral Care Visit
--- NOTE | 2019-06-07 11:01 | NUR ---
THIS NURSE NOTIFIED DR MIMS OF ABG RESULTS. NO NEW ORDERS AT THIS TIME. WILL CONTINUE TO MONITOR.
--- NOTE | 2019-06-07 12:10 | NUR ---
THIS NURSE NOTIFIED DR MIMS PT HAS ONLY HAD 15 ML OF URINE OUTPUT IN THE LAST 2 HOURS. ORDERS GIVEN TO GIVE LITER BOLUS OVER 2 HOURS. WILL CONTINUE TO MONITOR.
--- NOTE | 2019-06-07 13:13 | NUR ---
"Received dietary consult regarding pt's vent status. PMH: COPD; CAD; DM; HLD Est. kcal needs: 4996-5689 kcal | 25-30 kcal/kg Est. Pro needs: 101-127 g Pro | 1.2-1.5 g Pro/kg Would recommend the following TF if pt is to remain on vent for more than 3days: Glucerna 1.5 at goal rate of 60ml/hr. Begin at 10ml/hr and increase by 10ml q6h as tolerated. Monitor gastric residuals for tolerance. At goal rate, provides 2160 kcal (26 kcal/kg); 119 g Pro (1.4 g Pro/kg); and 1093ml free water. Flush with 75ml H2O q4h for hydration status. With flushes, provides 1543ml free water. Will continue to follow and reassess as pt needs and status change. Tamika Tapia MS, RD, LD [phone]"
[2019-06-07] MEDS ORDERED: LACTATED RINGERS 1,000 ML IV SCH (13:30)
[2019-06-07] MEDS: DexMEDEtomidine 250 ML DRIP 250 ML IV SCH (14:59)
--- NOTE | 2019-06-07 17:15 | NUR ---
1709 THIS NURSE NOTIFIED E-ICU THAT PT HAS ONLY HAD 40 ML OF URINE OUTPUT IN THE LAST 3 HOURS. PT HAS RECEIVED 3 LITER BOLUSES TODAY. NURSE NOTIFIED E-ICU OF PT LUNG SOUNDS. ORDERS GIVEN TO DC IVF AND GIVE ONE DOSE OF LAXIS.
[2019-06-07] MEDS ORDERED: FUROSEMIDE 40 MG/4 ML INJ (LASIX) IV NR (17:30)
[2019-06-07] MEDS: ROSUVASTATIN 10 MG (CRESTOR) TABLET PO SCH (20:29)
[2019-06-07] MEDS: MONTELUKAST 10 MG (SINGULAIR) TAB PO SCH (20:29)
[2019-06-07] MEDS: FLUTICASONE NASAL SPRAY (FLONASE) 16 GM BTL NS SCH (20:39)
[2019-06-08] VITALS (30 sets, daily range): BP systolic 115–171; BP diastolic 62–82
[2019-06-08] MEDS: methylPREDNISolone 125 MG (Solu-MEDROL) VIAL IVP SCH ×3 (00:13→12:21)
[2019-06-08] MEDS: inSUlin ASPART (NovoLOG) 1 UNIT/0.01 ML (CHARGE PER UNIT) SC SCH ×6 (00:17→19:28)
[2019-06-08] MEDS: RT-ALBUTEROL/IPRATROPIUM 3 ML (DUONEB) VIAL INH SCH ×6 (02:16→21:52)
[2019-06-08 03:29] LABS: BASOPHILS % (AUTO) 0 % (0-10); EOSINOPHILS % (AUTO) 0 % (0-10); HEMATOCRIT 33 % (40-54); HEMOGLOBIN 10.4 G/DL (13.3-17.7); LYMPHOCYTES # (AUTO) 0.8 X 10^3 (1.0-4.0); LYMPHOCYTES % (AUTO) 7 % (12-44); MEAN CORPUSCULAR HEMOGLOBIN 29 PG (25-34); MEAN CORPUSCULAR HGB CONC 32 G/DL (32-36); MEAN CORPUSCULAR VOLUME 90 FL (80-99); MEAN PLATELET VOLUME 12.5 FL (7.4-10.4); MONOCYTES # (AUTO) 0.6 X 10^3 (0.0-1.0); MONOCYTES % (AUTO) 6 % (0-12); NEUTROPHILS % (AUTO) 87 % (42-75); PLATELET COUNT 145 10^3/uL (130-400); RED CELL DISTRIBUTION WIDTH 14.7 % (10.0-14.5); WHITE BLOOD COUNT 10.3 10^3/uL (4.3-11.0)
[2019-06-08 03:47] LABS: CREATININE SERUM 2.12 MG/DL (0.60-1.30); MAGNESIUM 2.2 MG/DL (1.6-2.4); PHOSPHORUS 4.9 MG/DL (2.3-4.7); POTASSIUM 4.7 MMOL/L (3.6-5.0)
[2019-06-08 03:53] LABS: ABG BASE EXCESS -0.7 MMOL/L (-2.5-2.5); ABG OXYGEN SATURATION 92 % (94-100); ABG PCO2 50 MMHG (35-45); ABG PO2 70 MMHG (79-93); ABG TCO2 26.1 MMOL/L (21.0-31.0)
[2019-06-08 03:54] LABS: ABG PH 7.32 (7.37-7.43); ALLENS TEST POSITIVE; INSPIRED O2 30%; PATIENT TEMP 37.1; VENTILATOR YES
[2019-06-08] MEDS: cefTRIAXone FOR IV USE 1,000 MG in WATER (STERILE) FOR INJECTION 10 ML IV SCH (04:49)
[2019-06-08] MEDS ORDERED: LACTATED RINGERS 1,000 ML IV SCH (05:30)
--- NOTE | 2019-06-08 05:32 | Pulmonary Progress Note ---
Subjective Time Seen by a Provider: 05:46 Subjective/Events-last exam Sedated on vent. Sepsis Event Evaluation Height, Weight, BMI Height: 5'11" Weight: 178lbs. 0.0oz. 80.178441gc; 25.43 BMI Method:Stated Exam Exam Vital Signs Date Time Temp Pulse Resp B/P (MAP) Pulse Ox O2 Delivery O2 Flow Rate FiO2 06/08/19 04:00 77 20 124/70 (88) 96 Mechanical Ventilator 30.00 06/08/19 04:00 Mechanical Ventilator 30 06/08/19 03:00 73 20 138/73 (94) 96 Mechanical Ventilator 30.00 06/08/19 02:58 139/68 06/08/19 02:16 67 23 96 30 06/08/19 02:00 67 24 139/68 (91) 95 Mechanical Ventilator 30.00 06/08/19 01:00 70 23 150/73 (98) 97 Mechanical Ventilator 30.00 06/08/19 01:00 70 06/08/19 00:00 Mechanical Ventilator 30 06/08/19 00:00 67 23 146/82 (103) 97 Mechanical Ventilator 30.00 06/07/19 23:00 68 20 147/78 (101) 93 Mechanical Ventilator 30.00 06/07/19 22:00 68 22 142/76 (98) 95 Mechanical Ventilator 30.00 06/07/19 21:33 64 23 99 30 06/07/19 21:00 65 23 145/89 (107) 98 Mechanical Ventilator 30.00 06/07/19 20:30 146/78 06/07/19 20:00 65 23 146/78 (100) 98 Mechanical Ventilator 30.00 06/07/19 20:00 Mechanical Ventilator 30 06/07/19 20:00 36.7 06/07/19 19:00 66 22 142/78 (99) 97 Mechanical Ventilator 30.00 06/07/19 19:00 66 06/07/19 18:16 61 22 97 30 06/07/19 18:00 60 21 133/72 (92) 96 Mechanical Ventilator 30.00 06/07/19 17:00 61 21 158/87 (110) 97 Mechanical Ventilator 30.00 06/07/19 16:00 Mechanical Ventilator 30 06/07/19 16:00 36.7 06/07/19 16:00 67 22 158/69 (98) 96 Mechanical Ventilator 30.00 06/07/19 15:00 59 20 155/77 (103) 97 Mechanical Ventilator 30.00 06/07/19 14:58 61 22 97 30 06/07/19 14:58 156/93 06/07/19 14:00 61 22 146/68 (94) 96 Mechanical Ventilator 30.00 06/07/19 13:00 60 29 151/72 (98) 97 Mechanical Ventilator 30.00 06/07/19 12:28 63 06/07/19 12:00 63 137/79 (98) 99 Mechanical Ventilator 30.00 06/07/19 12:00 Mechanical Ventilator 30 06/07/19 12:00 36.6 06/07/19 11:00 60 22 128/78 (95) 96 Mechanical Ventilator 30.00 06/07/19 10:38 60 22 96 30 06/07/19 10:00 61 22 102/28 (52) 96 Mechanical Ventilator 30.00 06/07/19 09:13 61 22 97 30 06/07/19 09:00 62 113/70 (84) 90 Mechanical Ventilator 30.00 06/07/19 08:24 57 20 95 30 06/07/19 08:00 60 147/53 (84) 95 Mechanical Ventilator 30.00 06/07/19 08:00 Mechanical Ventilator 30 06/07/19 07:35 37.24142 62 17 123/94 94 Mechanical Ventilator 20.00 06/07/19 07:00 63 06/07/19 07:00 62 39 142/74 (96) 96 Mechanical Ventilator 30.00 06/07/19 06:00 62 17 123/94 (104) 94 Mechanical Ventilator 30.00 I & O 06/08/19 07:00 Intake Total 1700 ml Output Total 1355 ml Balance 345 ml Height & Weight Height: 5'11" Weight: 178lbs. 0.0oz. 80.477019qu; 25.43 BMI Method:Stated General Appearance: Chronically ill, Moderate Distress HEENT: Moist Mucous Membranes; No Scleral Icterus (L), No Scleral Icterus (R) Neck: Normal Inspection, Supple Respiratory: Accessory Muscle Use, Respiratory Distress, Rhonci; No Stridor Cardiovascular: Regular Rate, Rhythm, No Murmur Capillary Refill: Less Than 3 Seconds Gastrointestinal: normal bowel sounds, non tender, soft Extremity: No Calf Tenderness, No Pedal Edema Neurologic/Psychiatric: Alert, Oriented x3, Normal Mood/Affect Skin: Warm/Dry, Pallor Lymphatic: No Adenopathy Results Lab Laboratory Tests 06/06/19 08:10 06/06/19 22:27 06/07/19 03:11 06/08/19 02:53 06/08/19 02:57 Assessment/Plan Assessment/Plan Acute on chronic respiratory failure -Continue ventilator care -RR increased to 25 -Continue rocephin and azithromycin for now COPDAE -Solumedrol -Duo nebs Q4 -Add pulmicort CAD s/p CABG Grade 1 diastolic dysfunction and mod/severe tricuspid regurg acute on CKD -IVF and monitor -RN called EICU yesterday evening secondary to decrease UO and EICU gave Lasix -Cr is worse today secondary to Lasix given yesterday. Will hold lasix and continue IVF for now. NATE MIMS DO Jun 08, 2019 05:32
[2019-06-08] MEDS: POTASSIUM CL 10MEQ/50ML IVPB 50 ML IV SCH (06:09)
[2019-06-08] MEDS ORDERED: LACTATED RINGERS 1,000 ML IV ONE (06:09)
[2019-06-08] MEDS: MAGNESIUM 1 GM/100 ML IVPB 100 ML IV SCH (06:10)
[2019-06-08] MEDS: KCL 20 MEQ TAB (K-DUR) PO SCH (06:11)
[2019-06-08] MEDS: LACTATED RINGERS 1,000 ML IV SCH ×3 (06:15→18:49)
[2019-06-08] MEDS ORDERED: RT-BUDESONIDE NEBS 0.5 MG/2ML (PULMICORT) AMP ONE (06:29)
--- NOTE | 2019-06-08 06:42 | Diagnostic Imaging Report ---
INDICATION: Repositioned endotracheal tube. TECHNIQUE: Single view chest 5:59 AM. CORRELATION STUDY: 06/08/2019 FINDINGS: Poststernotomy and coronary bypass changes. Heart size and mediastinum are generally stable with calcification of the aortic arch. There is rather advanced bullous emphysematous lung disease. There are zones of atelectasis at the lung bases. Endotracheal tube is present tip projecting over the trachea interposed between the clavicles and dong. Gastric tube is also present which has tip not well visualized but does appear to be likely passing below the left hemidiaphragm. IMPRESSION: 1. Endotracheal tube tip projected over the mid trachea. 2. Rather advanced bullous emphysematous lung disease. Dictated by: Dictated on workstation # [id number]
--- NOTE | 2019-06-08 07:03 | Diagnostic Imaging Report ---
INDICATION: Dyspnea Upright portable AP view of chest is obtained. Comparison is made to study of 06/07/2019. There is continued air trapping bilaterally. Blunting of left costo phrenic sulcus is again noted. Endotracheal tube is in place with tip just below the thoracic inlet. Nasogastric tube appears to extend below the diaphragm. IMPRESSION: Background emphysema with continued left pleural fluid and/or thickening. Overall, no new abnormality or adverse change is identified. Dictated by: Dictated on workstation # [id number]
--- NOTE | 2019-06-08 07:03 | Physical Therapy Progress Note ---
Therapy Progress Note Patient remains sedated and intubated. PT will continue to monitor. LILLIE SCHAFFER PT Jun 08, 2019 07:03
[2019-06-08] MEDS: RT-BUDESONIDE NEBS 0.5 MG/2ML (PULMICORT) AMP INH SCH ×2 (07:05→18:00)
[2019-06-08] MEDS: PANTOPRAZOLE 40 MG (PROTONIX) VIAL IV SCH ×2 (08:07→20:35)
[2019-06-08] MEDS: AZITHROMYCIN INJECTION 250 MG in NS (IVPB) 250 ML IV SCH (08:07)
[2019-06-08] MEDS: LORATADINE (CLARITIN) 10 MG TAB PO SCH (08:07)
[2019-06-08] MEDS: CHLORHEXIDINE 0.12% SOLN 15 ML (PERIDEX) UDC PO SCH ×2 (08:07→20:35)
[2019-06-08] MEDS: DexMEDEtomidine 250 ML DRIP 250 ML IV SCH ×2 (08:07→22:32)
[2019-06-08] MEDS ORDERED: meTOprolol TARTRATE 25 MG (LOPRESSOR) TABLET PO SCH (09:00)
[2019-06-08] MEDS ORDERED: methylPREDNISolone 40 MG/ML (Solu-MEDROL) VIAL ONE (12:14)
--- NOTE | 2019-06-08 13:15 | Progress Note - Hospitalist ---
Subjective HPI/CC On Admission Date Seen by Provider: Jun 08, 2019 Time Seen by Provider: 08:30 Patient is an 79-year-old male with past medical history of COPD, coronary artery disease status post CABG who presented to the ER due to shortness of breath. He has end stage COPD at baseline and wears 6lpm chronically. He was seen by his corporate fitness program coordinator Dr Piña a couple of days ago and started on prednisone. He was prescribed 60mg and though the first day helped but after that did not think it was helping and states he is "convinced it doesn't work" for him. He reports cough without sputum production. He is otherwise dyspneic with conversation and history is somewhat limited. Subjective/Events-last exam he is intubated and sedated. There is no family bedside. Objective Exam Vital Signs Vital Signs Date Time Temp Pulse Resp B/P (MAP) Pulse Ox O2 Delivery O2 Flow Rate FiO2 06/08/19 12:00 37.2 06/08/19 12:00 77 25 153/76 (101) 98 Mechanical Ventilator 30.00 06/08/19 10:07 30 Capillary Refill : Less Than 3 Seconds General Appearance: No Apparent Distress, WD/WN HEENT: PERRL/EOMI, Other (endotracheal tube in place) Neck: Normal Inspection, Supple Respiratory: Lungs Clear, Normal Breath Sounds, No Respiratory Distress, Other (mechanically ventilated) Cardiovascular: Regular Rate, Rhythm, No Edema, No Murmur Gastrointestinal: Normal Bowel Sounds, Soft Extremity: Normal Inspection, No Pedal Edema Neurologic/Psychiatric: Other (and sedated) Skin: Warm/Dry, Pallor Results/Procedures Lab Laboratory Tests 06/08/19 02:53 06/08/19 02:57 Patient resulted labs reviewed. Imaging: Reviewed Imaging Report Assessment/Plan Assessment and Plan Assess & Plan/Chief Complaint Acute on Chronic Respiratory Failure COPD with acute exacerbation Intubated 116 PM Continue steroids Pulmonology following, appreciate assistance continue Rocephin and azithromycin CAD s/p CABG Tricupsid regurgitation Echo 02/2019 shows preserved EF with grade 1 diastolic dysfunction and mod/severe tricuspid regurg BNP elevated, will repeat echo Cardiology consulted, appreciate recs CLARISSA on CKD continue IV fluids continue to monitor Diagnosis/Problems Diagnosis/Problems (1) Acute respiratory failure with hypoxia Status: Acute (2) Acute exacerbation of chronic obstructive pulmonary disease (COPD) Status: Acute (3) Acute kidney injury superimposed on chronic kidney disease Status: Acute Clinical Quality Measures DVT/VTE Risk/Contraindication: Risk Factor Score Per Nursin RFS Level Per Nursing on Admit: 4+=Very High CHARLINE PARRA MD Jun 08, 2019 13:15
[2019-06-08] MEDS: meTOprolol TARTRATE 25 MG (LOPRESSOR) TABLET PO SCH ×2 (15:50→20:35)
--- NOTE | 2019-06-08 16:23 | Cardiology Progress Note ---
Cardiology SOAP Progress Note Subjective: Intubated/ventilated Objective: I&O/Vital Signs 06/08/19 06/08/19 06/08/19 06/08/19 05:00 06:00 07:00 07:00 Pulse 75 73 71 74 Resp 19 17 20 B/P (MAP) 127/69 (88) 127/68 (87) 135/73 (93) Pulse Ox 96 99 96 O2 Delivery Mechanical Ventilator Mechanical Ventilator Mechanical Ventilator O2 Flow Rate 30.00 30.00 30.00 06/08/19 06/08/19 06/08/19 06/08/19 07:06 07:12 08:00 08:00 Temp 37.5 Pulse 71 71 77 Resp 31 31 25 B/P (MAP) 143/70 (94) Pulse Ox 97 97 98 O2 Delivery Mechanical Ventilator Mechanical Ventilator O2 Flow Rate 30.00 FiO2 30 30 30 06/08/19 06/08/19 06/08/19 06/08/19 08:07 09:00 10:00 10:07 Pulse 78 75 72 71 Resp 25 20 21 28 B/P (MAP) 143/70 140/76 (97) 138/80 (99) Pulse Ox 98 98 99 99 O2 Delivery Mechanical Ventilator Mechanical Ventilator O2 Flow Rate 30.00 30.00 30.00 FiO2 30 06/08/19 06/08/19 06/08/19 06/08/19 11:00 12:00 12:00 12:00 Temp 37.2 Pulse 75 77 Resp 19 25 B/P (MAP) 155/73 (100) 153/76 (101) Pulse Ox 99 98 O2 Delivery Mechanical Ventilator Mechanical Ventilator Mechanical Ventilator O2 Flow Rate 30.00 30.00 FiO2 30 06/08/19 06/08/19 06/08/19 06/08/19 13:00 13:00 13:29 14:00 Pulse 72 72 71 Resp 19 23 B/P (MAP) 159/77 (104) 159/97 162/76 (104) Pulse Ox 99 98 O2 Delivery Mechanical Ventilator Mechanical Ventilator O2 Flow Rate 30.00 30.00 06/08/19 06/08/19 06/08/19 14:00 15:00 16:00 Pulse 70 94 93 Resp 26 22 24 B/P (MAP) 171/76 (107) 149/82 (104) Pulse Ox 99 96 97 O2 Delivery Mechanical Ventilator Mechanical Ventilator O2 Flow Rate 30.00 30.00 FiO2 30 06/08/19 00:00 Intake Total 1350 ml Output Total 915 ml Balance 435 ml Weight (Pounds): 178 Weight (Ounces): 0.0 Weight (Calculated Kilograms): 80.957329 Constitutional: other (intubated/ventilated) Respiratory: chest is bilaterally symmetric, other (coarse breath sounds bilaterally) Cardiovascular: regular rate-rhythm, S1 and S2 Gastrointestional: soft, audible bowel sounds Extremities: no lower extremity edema bilateral Neurologic/Psychiatric: other (intubated/ventilated) Results/Procedures: Labs Laboratory Tests 06/07/19 20:34: Glucometer 207H 06/08/19 00:12: Glucometer 215H 06/08/19 02:53: Sodium Level 139, Potassium Level 4.7, Chloride Level 106, Carbon Dioxide Level 19L, Anion Gap 14, Blood Urea Nitrogen 47H, Creatinine 2.12H, Estimat Glomerular Filtration Rate 30, BUN/Creatinine Ratio 22, Glucose Level 190H, Calcium Level 8.0L, Phosphorus Level 4.9H, Magnesium Level 2.2, Triglycerides Level 227H 06/08/19 02:57: White Blood Count 10.3, Red Blood Count 3.64L, Hemoglobin 10.4L, Hematocrit 33L, Mean Corpuscular Volume 90, Mean Corpuscular Hemoglobin 29, Mean Corpuscular Hemoglobin Concent 32, Red Cell Distribution Width 14.7H, Platelet Count 145, Mean Platelet Volume 12.5H, Neutrophils (%) (Auto) 87H, Lymphocytes (%) (Auto) 7L, Monocytes (%) (Auto) 6, Eosinophils (%) (Auto) 0, Basophils (%) (Auto) 0, Neutrophils # (Auto) 9.0H, Lymphocytes # (Auto) 0.8L, Monocytes # (Auto) 0.6, Eosinophils # (Auto) 0.0, Basophils # (Auto) 0.0 06/08/19 03:46: Blood Gas Puncture Site LEFT BRACHIAL, Blood Gas Patient Temperature 37.1, Arterial Blood pH 7.32*L, Arterial Blood Partial Pressure CO2 50H, Arterial Blood Partial Pressure O2 70L, Arterial Blood HCO3 25, Arterial Blood Total CO2 26.1, Arterial Blood Oxygen Saturation 92L, Arterial Blood Base Excess -0.7, Florentin Test POSITIVE, Blood Gas Ventilator Setting YES, Blood Gas Inspired Oxygen 30% 06/08/19 04:43: Glucometer 194H 06/08/19 08:05: Glucometer 185H 06/08/19 11:38: Glucometer 171H 06/08/19 15:48: Glucometer 204H Microbiology 06/07/19 Urine Culture - Final, Complete NO GROWTH 06/07/19 MRSA Screen - Final, Complete MRSA not isolated A/P: Assessment/Dx: Acute respiratory failure Coronary artery disease Congestive heart failure Hypertension Plan: Acute respiratory failure, acute exacerbation of COPD, intubated, managed by primary care team Severe COPD, oxygen dependent at home, currently ventilator dependent, managed by Dr. Piña Congestive heart failure, acute on chronic left ventricular systolic dysfunction, planning to repeat 2-D echocardiogram. Coronary artery disease, history of CABG 5 done in 2003 using CRISOSTOMO to LAD, vein graft to the first OM, second OM, diagonal and right coronary artery. Had left upper lobe lung reduction was resection of massive bullae. Has been doing well. Dr. Hawkins performed stenting of the LAD using 3.5 x 12 mm Promus Premeire, another stent to the circumflex artery using 4.0 x 8mm and balloon angioplasty to the OM 3 using 2.515 mm in May 2014. Most recent cardiac catheterization Ma 2014 revealed moderate disease in the left main coronary artery, patent stent in the proximal LAD and first obtuse marginal branch. Small vessel disease distally. The third obtuse marginal branch had balloon angioplasty in May 2014, still patent with 70 percent ostial stenosis; medical therapy recommended. Patent vein graft to the diagonal artery and vein graft to RCA with small vessel disease distally. Known occluded vein graft to the OM branch and occluded CRISOSTOMO to LAD. EF 40- 45%, improved compared to May 2014. Continue to monitor. Severe carotid stenosis, followed and monitored by heart and vascular care Hypertension, continue to monitor blood pressure Hyperlipidemia, monitor lipids History of bifascicular block, EKG showed sinus rhythm with right bundle branch block, left anterior fascicular block, continue to monitor Diabetes mellitus, followed and managed by primary care physician. Thank you for your consultation. Please call me if you have any questions. Alina Mcfarlane MD, FACP, FACC, FSCAI, FHRS, CCDS Interventional Cardiology Cardiac Electrophysiology Vascular Medicine and Endovascular Interventions Michaela MCFARLANE MD Jun 08, 2019 16:23
[2019-06-08] MEDS: methylPREDNISolone 40 MG/ML (Solu-MEDROL) VIAL IV SCH (18:48)
[2019-06-08] MEDS: MONTELUKAST 10 MG (SINGULAIR) TAB PO SCH (20:35)
[2019-06-08] MEDS: fentaNYL INJECTION 100 MCG/2 ML AMP IV PRN (20:35)
[2019-06-08] MEDS: ROSUVASTATIN 10 MG (CRESTOR) TABLET PO SCH (20:36)
[2019-06-08] MEDS: FLUTICASONE NASAL SPRAY (FLONASE) 16 GM BTL NS SCH (20:37)
[2019-06-08 22:14] LABS: ABG BASE EXCESS -0.1 MMOL/L (-2.5-2.5); ABG OXYGEN SATURATION 95 % (94-100); ABG PCO2 48 MMHG (35-45); ABG PO2 73 MMHG (79-93); ABG TCO2 26.9 MMOL/L (21.0-31.0)
[2019-06-08 22:15] LABS: ALLENS TEST YES-POS; INSPIRED O2 30%; PATIENT TEMP 35.4; VENTILATOR YES
[2019-06-08 22:16] LABS: ABG PH 7.33 (7.37-7.43)
--- NOTE | 2019-06-08 22:36 | NUR ---
THIS RN NOTIFIED E-ICU OF PT HAVING LOW PEAK PRESSURES AND TIDAL VOLUMES BETWEEN 120-300. THIS RN INFORMED E-ICU THAT AN ABG HAD ALREADY BEEN COLLECTED AND A CXR HAD BEEN ORDERED. MARIE E-ICU ASKED IF AN RT WAS AVAILABLE AND THIS RN INFORMED HER THAT THE RT SAID THE LOW PEAK PRESSURES WERE DUE TO PT NOT BEING SEDATED ENOUGH. Sanjuana SALAZAR-ICU STATED SHE WOULD INFORM DR. CACERES. Addendum: 06/09/19 at 0041 by BABS CLEMENTE RN LATE ENTRY: THIS RN INFORMED MARIE PT HAVING ABDOMINAL RETRACTIONS.
--- NOTE | 2019-06-08 22:40 | NUR ---
DR. CACERES AT BEDSIDE VIA CAMERA TO ASSESS VENT AND PT CONDITION. NEW ORDERS OBTAINED, SEE ORDER HX.
[2019-06-08] MEDS ORDERED: RT-ALBUTEROL SULF 2.5 MG/3 ML PRE-MIX VIAL ONE (23:43)
[2019-06-08] MEDS ORDERED: aCETylcysteine 20% (MUCOMYST) 30ML SOLN VIAL ONE (23:44)
--- NOTE | 2019-06-08 23:50 | NUR ---
TIMELINE NOTE BELOW: 06/08/2019 AT 2310: DR. CHAVES AT BEDSIDE TO ASSESS PT. 06/08/2019 AT 2313: DR. CHAVES REQUESTED VERSED 5MG IV. VERSED 5MG IV ADMINISTERED BY THIS RN. 06/08/2019 AT 2314: DR. CHAVES REMOVED EXISTING ET TUBE. 8.5FR ET TUBE PLACED, 27CM AT THE TEETH. 06/08/2019 AT 2315: LILLIE RT BAGGING PT, SA02 100% 06/08/2019 AT 2317: ET TUBE ADVANCED BY RT LILLIE PER DR HINES ORDER. 06/08/2019 AT 2319: POSITIVE COLOR CHANGE NOTED, BILATERAL BREATH SOUNDS PRESENT AND EQUAL ON AUSCULTATION - CONFIRMED BY DR. CHAVES. 06/08/2019 AT 2321: CXR OBTAINED. 06/08/2019 AT 2324 50MG ROCURONIUM IV ADMINISTERED PER DR. CHAVES ORDER. 06/08/2019 AT 2332: DR. CACERES AT BEDSIDE VIA CAMERA. NEW ORDERS OBTAINED AT THIS TIME, SEE ORDER HX. 06/08/2019 AT 2345: OG PLACED BY THIS RN. 06/08/2019 AT 2350: CXR OBTAINED. 06/08/2019 AT 2356: INSTRUCTED TO ADVANCE OG 8CM BY DR. CACERES. OG ADVANCED.
[2019-06-09] VITALS (45 sets, daily range): BP systolic 89–139; BP diastolic 54–74
[2019-06-09] MEDS: methylPREDNISolone 40 MG/ML (Solu-MEDROL) VIAL IV SCH ×5 (00:03→22:59)
[2019-06-09] MEDS: inSUlin ASPART (NovoLOG) 1 UNIT/0.01 ML (CHARGE PER UNIT) SC SCH ×7 (00:04→22:56)
[2019-06-09 00:41] LABS: ABG BASE EXCESS 3.6 MMOL/L (-2.5-2.5); ABG OXYGEN SATURATION 100 % (94-100); ABG PCO2 35 MMHG (35-45); ABG PH 7.49 (7.37-7.43); ABG PO2 146 MMHG (79-93); ABG TCO2 28.2 MMOL/L (21.0-31.0)
[2019-06-09 00:42] LABS: ALLENS TEST POSTIVE; INSPIRED O2 50%; PATIENT TEMP 35.8; VENTILATOR YES
--- NOTE | 2019-06-09 01:10 | NUR ---
RT called to room, pt desating and large cuff leak, dr Pagan at bedside 8.5 Ett at 27 cm, good color change and bs equal, [address] order vt to 550, i time to 1.2, fio2 to 50%, 2338 ett to [address] order, 2341 ett moved to [address] christensen order, 2345 order for low vt to [address] gillette, large vt leak, notified vt 120 mls to 200 mls, even though he increased vt to 550 mls, order to leave cuff pressure less than 35 cm h2o, xray take, Addendum: 06/09/19 at 0114 by LILLIE HERNANDEZ RT Amended: Links added.
[2019-06-09] MEDS: LACTATED RINGERS 1,000 ML IV SCH ×4 (01:25→21:47)
[2019-06-09 02:09] LABS: ABG BASE EXCESS -1.7 MMOL/L (-2.5-2.5); ABG OXYGEN SATURATION 91 % (94-100); ABG PCO2 59 MMHG (35-45); ABG PO2 65 MMHG (79-93)
[2019-06-09 02:15] LABS: ALLENS TEST POSITIVE; INSPIRED O2 40%; PATIENT TEMP 35.6; VENTILATOR YES
[2019-06-09 02:20] LABS: ABG PH 7.24 (7.37-7.43)
--- NOTE | 2019-06-09 03:12 | NUR ---
ett pulled back to [address] gillette order, vt dropped to 50-60 mls, dr gillette cameraed in to room, ett moved out 2 more cm to 23 cm at teeth, vt 353 mls, dr gillette ok with large leak with airway. Addendum: 06/09/19 at 0331 by LILLIE HERNANDEZ RT Amended: Links added.
--- NOTE | 2019-06-09 03:14 | NUR ---
TIMELINE NOTE BELOW: 06/09/2019 AT 0311: RT LILLIE HERE TO RETRACT ETT 6CM PER DR. CACERES'S ORDERS. CUFF LEAK NO BETTER AND TIDAL VOLUMES NOTED TO BE WORSE. 06/09/2019 AT 0313: THIS RN CALLED E-ICU TO NOTIFY DR. CACERES OF WORSE TIDAL VOLUMES. DR. CACERES AT BEDSIDE VIA CAMERA AT THIS TIME. 06/09/2019 AT 0314: RT LILLIE INSTRUCTED BY DR. CACERES TO RETRACT ETT ANOTHER 2 CM. ETT RETRACTED BY RT LILLIE. CUFF LEAK SLIGHTLY BETTER, TIDAL VOLUMES BETWEEN 350-480. CXR ORDERED PER DR. CACERES'S WRITTEN ORDER. WILL CONTINUE TO MONITOR.
--- NOTE | 2019-06-09 03:43 | NUR ---
THIS RN NOTIFIED E-ICU OF SOFT BP'S. NEW ORDERS OBTAINED, SEE ORDER HX.
[2019-06-09 03:45] LABS: BASOPHILS % (AUTO) 0 % (0-10); EOSINOPHILS % (AUTO) 0 % (0-10); HEMATOCRIT 33 % (40-54); HEMOGLOBIN 10.3 G/DL (13.3-17.7); LYMPHOCYTES # (AUTO) 0.4 X 10^3 (1.0-4.0); LYMPHOCYTES % (AUTO) 4 % (12-44); MEAN CORPUSCULAR HEMOGLOBIN 29 PG (25-34); MEAN CORPUSCULAR HGB CONC 31 G/DL (32-36); MEAN CORPUSCULAR VOLUME 92 FL (80-99); MONOCYTES # (AUTO) 0.8 X 10^3 (0.0-1.0); MONOCYTES % (AUTO) 8 % (0-12); NEUTROPHILS # (AUTO) 9.6 X 10^3 (1.8-7.8); NEUTROPHILS % (AUTO) 88 % (42-75); PLATELET COUNT 128 10^3/uL (130-400); RED CELL DISTRIBUTION WIDTH 14.9 % (10.0-14.5); WHITE BLOOD COUNT 10.9 10^3/uL (4.3-11.0)
[2019-06-09] MEDS ORDERED: LACTATED RINGERS 1,000 ML IV ONE (03:50)
[2019-06-09 04:00] LABS: CALCIUM 7.9 MG/DL (8.5-10.1); CREATININE SERUM 1.75 MG/DL (0.60-1.30); MAGNESIUM 2.3 MG/DL (1.6-2.4); PHOSPHORUS 6.2 MG/DL (2.3-4.7); POTASSIUM 4.5 MMOL/L (3.6-5.0)
--- NOTE | 2019-06-09 04:09 | Procedure/Intervention Note ---
Procedure Note Vital Signs Vital Signs Date Time Temp Pulse Resp B/P (MAP) Pulse Ox O2 Delivery O2 Flow Rate FiO2 06/09/19 03:00 71 20 113/57 (75) 94 Mechanical Ventilator 40.00 06/09/19 02:18 50 06/08/19 20:32 36.3 Procedure Note 06/08/2019 @ 2320: Called emergently to the ICU for patient in extremis who is intubated and has significant air leak around ET tube. EICU doctor has asked me to evaluate and change tube to larger size due to concerns for tube failure and/or leak due to size tube. Patient has significant air leak on ET tube and gurgling is noted with each breath. Tidal volume delivered is low. Patient has low peak pressures. He is able to maintain O2 saturations with assistance. Patient is on propofol drip and is sedated. Patient apparently has significant COPD and has been intubated for a few days now. He had recent tube change. I did evaluate the patient. Ultimately we elected to reintubate the patient. I did give Versed 5 mg IV and removed the previous tube. I did replace ET tube with 8.5 to 29 cm at the lips with good bilateral breath sounds using video laryngoscope. Cuff pressure placed at 30 but still had air leak. I did give rocuronium 50 mg IV and we did have improved air exchange with tidal volume of 400. The cuff pressure had to be increased to keep good tidal volume though as he still had air leak. Cuff pressure reduced. Intubation was difficult with the 8.5 tube with difficulty moving past the cords. I'm unsure if a larger tube would be able to be passed through the cords as it was a tight fit. I did discuss the case with the eICU doctor. Post intubation chest x-ray shows ET tube in good position. OG-tube was placed after and that x-ray shows both tubes in good position. Patient left in care of eICU team. ROSALEE CHAVES MD Jun 09, 2019 04:09
[2019-06-09 04:46] LABS: ABG BASE EXCESS -2.2 MMOL/L (-2.5-2.5); ABG OXYGEN SATURATION 99 % (94-100); ABG PCO2 55 MMHG (35-45); ABG PO2 120 MMHG (79-93); ABG TCO2 25.8 MMOL/L (21.0-31.0)
[2019-06-09 04:48] LABS: ALLENS TEST POSITIVE; INSPIRED O2 40%; PATIENT TEMP 36.4; VENTILATOR YES
[2019-06-09 04:49] LABS: ABG PH 7.26 (7.37-7.43)
[2019-06-09] MEDS: guaiFENesin SYRUP 100 MG/5 ML 10 ML (ROBITUSSIN SF) GT SCH ×6 (04:58→22:58)
[2019-06-09] MEDS: cefTRIAXone FOR IV USE 1,000 MG in WATER (STERILE) FOR INJECTION 10 ML IV SCH (04:59)
[2019-06-09] MEDS: MAGNESIUM 1 GM/100 ML IVPB 100 ML IV SCH (05:07)
[2019-06-09] MEDS: KCL 20 MEQ TAB (K-DUR) PO SCH (05:07)
[2019-06-09] MEDS: POTASSIUM CL 10MEQ/50ML IVPB 50 ML IV SCH (05:07)
[2019-06-09] MEDS ORDERED: MIDAZOLAM 5 MG/5 ML (VERSED) VIAL ONE ×2 (05:41→05:42)
--- NOTE | 2019-06-09 05:48 | NUR ---
THIS RN CONTACTED PT'S TO OBTAIN CONSENT FOR BRONCHOSCOPY. PT AGREED AND CONSENT WAS CONFIRMED WITH PHONE REPRESENTATIVE.
[2019-06-09 05:49] LABS: LYMPHOCYTES % (MANUAL) 4 %; MONOCYTES % (MANUAL) 5 %; NEUTROPHILS % (MANUAL) 91 %
[2019-06-09] MEDS ORDERED: MIDAZOLAM 5 MG/5 ML (VERSED) VIAL IVP ONE (06:00)
--- NOTE | 2019-06-09 06:14 | NUR ---
TIMELINE NOTE BELOW: 06/09/2019 AT 0605: 5CC PROPOFOL IV FOLLOWED BY 4MG VERSED IV ADMINISTERED PER DR. MIMS'S ORDER. 06/09/2019 AT 0607: BRONCHOSCOPY PROCEDURE STARTED BY DR. MIMS. 06/09/2019 AT 0614: BRONCHOSCOPY COMPLETE. PT TOLERATED PROCEDURE WELL.
--- NOTE | 2019-06-09 06:32 | Pulmonary Progress Note ---
Subjective Time Seen by a Provider: 06:24 Subjective/Events-last exam Pt sedated on vent. Called to bedside urgently secondary to persistent worsening cuff leak. EICU has been working with pt throughout the night. Sepsis Event Evaluation Height, Weight, BMI Height: 5'11" Weight: 178lbs. 0.0oz. 80.509361qm; 25.43 BMI Method:Stated Exam Exam Vital Signs Date Time Temp Pulse Resp B/P (MAP) Pulse Ox O2 Delivery O2 Flow Rate FiO2 06/09/19 06:00 68 13 136/74 (94) 100 Mechanical Ventilator 40.00 06/09/19 05:00 70 13 135/70 (91) 100 Mechanical Ventilator 40.00 06/09/19 04:15 73 15 135/70 (91) 100 Mechanical Ventilator 40.00 06/09/19 04:10 71 15 139/70 (93) 100 Mechanical Ventilator 40.00 06/09/19 04:05 70 17 128/60 (82) 100 Mechanical Ventilator 40.00 06/09/19 04:00 72 19 139/70 (93) 100 Mechanical Ventilator 40.00 06/09/19 03:55 72 16 107/56 (73) 100 Mechanical Ventilator 40.00 06/09/19 03:45 70 15 107/56 (73) 100 Mechanical Ventilator 40.00 06/09/19 03:30 70 19 92/54 (67) 100 Mechanical Ventilator 40.00 06/09/19 03:15 73 19 131/57 (81) 94 Mechanical Ventilator 40.00 06/09/19 03:00 71 20 113/57 (75) 94 Mechanical Ventilator 40.00 06/09/19 02:45 71 18 127/55 (79) 93 Mechanical Ventilator 40.00 06/09/19 02:30 67 15 119/56 (77) 91 Mechanical Ventilator 40.00 06/09/19 02:18 66 26 92 50 06/09/19 02:15 68 24 89/56 (67) 96 Mechanical Ventilator 40.00 06/09/19 02:00 68 25 119/56 (77) 96 Mechanical Ventilator 40.00 06/09/19 01:54 68 96/60 06/09/19 01:45 70 25 96/60 (72) 96 Mechanical Ventilator 40.00 06/09/19 01:30 69 24 104/55 (71) 98 Mechanical Ventilator 40.00 06/09/19 01:15 71 25 122/73 (89) 100 Mechanical Ventilator 40.00 06/09/19 01:00 78 24 111/66 (81) 100 Mechanical Ventilator 40.00 06/09/19 01:00 79 06/09/19 00:45 78 24 107/71 (83) 100 Mechanical Ventilator 85.00 06/09/19 00:30 79 24 94/62 (73) 100 Mechanical Ventilator 85.00 06/09/19 00:00 Mechanical Ventilator 30 06/09/19 00:00 71 20 96/56 (69) 100 Mechanical Ventilator 85.00 06/08/19 23:30 Mechanical Ventilator 50.00 06/08/19 23:00 74 14 115/62 (79) 96 Mechanical Ventilator 30.00 06/08/19 22:48 75 131/72 06/08/19 22:00 75 14 131/72 (91) 100 Mechanical Ventilator 30.00 06/08/19 21:52 75 30 98 30 06/08/19 21:00 73 14 140/67 (91) 97 Mechanical Ventilator 30.00 06/08/19 20:32 36.3 06/08/19 20:00 38.0 20 20:00 75 19 142/75 (97) 97 Mechanical Ventilator 30.00 06/08/19 19:52 Mechanical Ventilator 30 06/08/19 19:40 06/08/19 19:00 80 21 160/72 (101) 96 Mechanical Ventilator 30.00 06/08/19 19:00 80 20 18:48 160/72 06/08/19 18:01 86 25 96 30 06/08/19 18:00 84 15 160/72 (101) 96 Mechanical Ventilator 30.00 20 17:00 87 30 158/81 (106) 97 Mechanical Ventilator 30.00 06/08/19 16:00 Mechanical Ventilator 30 06/08/19 16:00 93 24 149/82 (104) 97 Mechanical Ventilator 30.00 06/08/19 16:00 38.2 06/08/19 15:00 94 22 171/76 (107) 96 Mechanical Ventilator 30.00 06/08/19 14:00 70 26 99 30 06/08/19 14:00 71 23 162/76 (104) 98 Mechanical Ventilator 30.00 06/08/19 13:29 159/97 06/08/19 13:00 72 06/08/19 13:00 72 19 159/77 (104) 99 Mechanical Ventilator 30.00 06/08/19 12:00 37.2 06/08/19 12:00 77 25 153/76 (101) 98 Mechanical Ventilator 30.00 06/08/19 12:00 Mechanical Ventilator 30 06/08/19 11:00 75 19 155/73 (100) 99 Mechanical Ventilator 30.00 06/08/19 10:07 71 28 99 30 06/08/19 10:00 72 21 138/80 (99) 99 Mechanical Ventilator 30.00 06/08/19 09:00 75 20 140/76 (97) 98 Mechanical Ventilator 30.00 06/08/19 08:07 78 25 143/70 98 30.00 06/08/19 08:00 Mechanical Ventilator 30 06/08/19 08:00 37.5 77 25 143/70 (94) 98 Mechanical Ventilator 30.00 06/08/19 07:12 71 31 97 30 06/08/19 07:06 71 31 97 30 06/08/19 07:00 74 06/08/19 07:00 71 20 135/73 (93) 96 Mechanical Ventilator 30.00 I & O 06/09/19 07:00 Intake Total 1150 ml Output Total 1430 ml Balance -280 ml Height & Weight Height: 5'11" Weight: 178lbs. 0.0oz. 80.321565vt; 25.43 BMI Method:Stated General Appearance: WD/WN, Moderate Distress, Other (sedated on vent) HEENT: PERRL/EOMI, Other (endotracheal tube in place) Neck: Normal Inspection, Supple Respiratory: Lungs Clear, Normal Breath Sounds, No Respiratory Distress, Other (mechanically ventilated) Cardiovascular: Regular Rate, Rhythm, No Edema, No Murmur Capillary Refill: Less Than 3 Seconds Gastrointestinal: normal bowel sounds, non tender, soft Extremity: Normal Inspection, No Pedal Edema Neurologic/Psychiatric: Other (and sedated) Skin: Warm/Dry, Pallor Lymphatic: No Adenopathy Results Lab Laboratory Tests 06/08/19 02:53 06/08/19 02:57 06/09/19 03:31 Assessment/Plan Assessment/Plan Acute on chronic respiratory failure -Continue ventilator care -RN called me to bedside secondary to persistent cuff leak. Dr. Pagan reintubated with size 8.5 ET tube and still persistent cuff leak. I discussed with Dr. Costello and decided to do bronchoscopy. ET tube was repositioned with bronchoscopy which did resolve cuff leak for now. -D/w daughter who is a doctor over phone regarding pt's current status. She is currently in [place] however planning on traveling here today. I also d/w who arrived at bedside later during the day. I expect family will make pt [employer] tomorrow. Total of 120min spent with pt and discussing with medical team including MICHAEL and Dr. Pagan. -Continue rocephin and azithromycin for now -Repeat ABG COPDAE -Solumedrol -Duo nebs Q4 -Add pulmicort CAD s/p CABG Grade 1 diastolic dysfunction and mod/severe tricuspid regurg acute on CKD -IVF and monitor Critical Care: Critically Ill Patient Time spent with patient (mins): 120 NATE MIMS DO Jun 09, 2019 06:32
--- NOTE | 2019-06-09 06:44 | Diagnostic Imaging Report ---
CHEST 1 VIEW, AP/PA ONLY Indication: Intubation Comparison: 06/08/2018 Findings: ET tube has tip 7.4 cm above the dong (previously 3.8 cm). Stable left lateral costophrenic angle blunting. Calcified left midlung zone nodule is unchanged. Stable curvilinear opacities in lung bases. No pneumothorax. Stable cardiomediastinal silhouette. Stable enteric tube. Impression: 1. ET tube has been retracted and is now 7.4 cm above the dong. Dictated by: Dictated on workstation # [id number]
[2019-06-09] MEDS: RT-ALBUTEROL SULF 2.5 MG/3 ML PRE-MIX VIAL IH SCH ×4 (07:08→21:38)
[2019-06-09] MEDS: RT-BUDESONIDE NEBS 0.5 MG/2ML (PULMICORT) AMP INH SCH ×2 (07:08→18:03)
[2019-06-09] MEDS: aCETylcysteine 20% (MUCOMYST) 30ML SOLN VIAL INH SCH ×4 (07:08→21:38)
--- NOTE | 2019-06-09 07:24 | Diagnostic Imaging Report ---
CHEST 1 VIEW, AP/PA ONLY Indication: Status post bronchoscopy. Comparison: 06/09/2019 Findings: Stable ET and enteric tubes. Left perihilar and basilar heterogeneous opacities are unchanged. Right basilar curvilinear opacities are similar. No pneumothorax. Improved but persistent trace left pleural effusion. Stable cardiac silhouette status post CABG. Calcified left midlung zone granuloma is stable. Impression: 1. No acute process status post bronchoscopy. Dictated by: Dictated on workstation # [id number]
--- NOTE | 2019-06-09 07:30 | Diagnostic Imaging Report ---
Indication: Endotracheal tube placement. Comparison: Earlier same date. Discussion: Single frontal upright view of the chest was obtained. Endotracheal tube in good position within the mid trachea. Enteric tube tip in the gastric body. Normal heart size. Stable bibasilar infiltrates. Median sternotomy is noted. Impression: 1. Endotracheal tube in good position within the mid trachea. Dictated by: Dictated on workstation # [id number]
--- NOTE | 2019-06-09 07:36 | Diagnostic Imaging Report ---
Indication: Endotracheal tube placement. Comparison: Earlier same date. Discussion: Single portable upright view of the chest was obtained. Endotracheal tube in good position 3 cm above the dong. Median sternotomy is stable. Slightly improved aeration of the lung bases. Small left pleural effusion is stable. No pneumothorax. Normal heart size. Impression: 1. Endotracheal tube in good position. Dictated by: Dictated on workstation # [id number]
--- NOTE | 2019-06-09 07:36 | Diagnostic Imaging Report ---
Indication: Enteric tube placement. Comparison: 06/08/2019. Discussion: Two views of the chest were obtained. Endotracheal tube is in good position above the dong. New enteric tube with tip in the gastric body. The lungs remain hyperinflated. Small left pleural effusion is stable. Improved aeration of the lung bases. Impression: 1. Enteric tube tip in the gastric body. Endotracheal tube is stable. Dictated by: Dictated on workstation # [id number]
[2019-06-09 07:37] LABS: ABG BASE EXCESS -1.5 MMOL/L (-2.5-2.5); ABG OXYGEN SATURATION 98 % (94-100); ABG PCO2 46 MMHG (35-45); ABG PO2 99 MMHG (79-93); ABG TCO2 25.3 MMOL/L (21.0-31.0)
[2019-06-09 07:38] LABS: ABG PH 7.33 (7.37-7.43); ALLENS TEST YES-POS; INSPIRED O2 25; PATIENT TEMP 35.8; VENTILATOR YES
--- NOTE | 2019-06-09 08:00 | NUR ---
PT DAUGHTER CALLED THIS AM FOR UPDATE. DR. MIMS SPOKE WITH DAUGHTER REGARDING PT CONDITION AND OVERNIGHT STATUS CHANGE. DR. MIMS SPOKE WITH DAUGHTER REGARDING COMFORT CARE MEASURES. DR. MIMS GAVE VERBAL ORDER FOR PT TO BE DNR AFTER SPEAKING WITH DAUGHTER.
[2019-06-09] MEDS: LORATADINE (CLARITIN) 10 MG TAB PO SCH (08:05)
[2019-06-09] MEDS: PANTOPRAZOLE 40 MG (PROTONIX) VIAL IV SCH ×2 (08:05→19:49)
[2019-06-09] MEDS: AZITHROMYCIN INJECTION 250 MG in NS (IVPB) 250 ML IV SCH (08:06)
[2019-06-09] MEDS ORDERED: MIDAZOLAM 5 MG/5 ML (VERSED) VIAL INJ ONE (09:22)
[2019-06-09] MEDS ORDERED: ROCURONIUM 10 MG/ML 5 ML SYRINGE IV ONE (09:22)
--- NOTE | 2019-06-09 11:07 | Progress Note - Hospitalist ---
Subjective HPI/CC On Admission Date Seen by Provider: Jun 09, 2019 Time Seen by Provider: 07:45 Patient is an 79-year-old male with past medical history of COPD, coronary artery disease status post CABG who presented to the ER due to shortness of breath. He has end stage COPD at baseline and wears 6lpm chronically. He was seen by his operator specialist communications Dr Piña a couple of days ago and started on prednisone. He was prescribed 60mg and though the first day helped but after that did not think it was helping and states he is "convinced it doesn't work" for him. He reports cough without sputum production. He is otherwise dyspneic with conversation and history is somewhat limited. Subjective/Events-last exam He is intubated and sedated. There is no family at the bedside. Objective Exam Vital Signs Vital Signs Date Time Temp Pulse Resp B/P (MAP) Pulse Ox O2 Delivery O2 Flow Rate FiO2 06/09/19 10:00 71 25 113/66 (82) 99 Mechanical Ventilator 30.00 06/09/19 09:34 50 06/08/19 20:32 36.3 Capillary Refill : Less Than 3 Seconds General Appearance: No Apparent Distress, Other (Intubated and sedated) Respiratory: Lungs Clear, Normal Breath Sounds, No Respiratory Distress, Other (And mechanically ventilated) Cardiovascular: Regular Rate, Rhythm, No Edema, No Murmur Gastrointestinal: Normal Bowel Sounds, Soft Extremity: Normal Inspection, No Pedal Edema Neurologic/Psychiatric: Other (Sedated) Skin: Normal Color, Warm/Dry Results/Procedures Lab Laboratory Tests 06/09/19 03:31 Patient resulted labs reviewed. Imaging: Reviewed Imaging Report Assessment/Plan Assessment and Plan Assess & Plan/Chief Complaint Acute on Chronic Respiratory Failure COPD with acute exacerbation Community acquired pneumonia Intubated 06/06 Continue steroids Continue antibiotics Pulmonology following, appreciate assistance CAD s/p CABG Tricupsid regurgitation Echo 02/2019 shows preserved EF with grade 1 diastolic dysfunction and mod/severe tricuspid regurg BNP elevated, will repeat echo Cardiology consulted, appreciate recs CLARISSA on CKD Improving continue IV fluids continue to monitor Diagnosis/Problems Diagnosis/Problems (1) Acute respiratory failure with hypoxia Status: Acute (2) Acute exacerbation of chronic obstructive pulmonary disease (COPD) Status: Acute (3) Acute kidney injury superimposed on chronic kidney disease Status: Acute Clinical Quality Measures DVT/VTE Risk/Contraindication: Risk Factor Score Per Nursin RFS Level Per Nursing on Admit: 4+=Very High CHARLINE PARRA MD Jun 09, 2019 11:07
[2019-06-09] MEDS: meTOprolol TARTRATE 25 MG (LOPRESSOR) TABLET PO SCH ×2 (11:12→19:50)
[2019-06-09] MEDS: CHLORHEXIDINE 0.12% SOLN 15 ML (PERIDEX) UDC PO SCH ×2 (11:12→19:50)
[2019-06-09] MEDS: DexMEDEtomidine 250 ML DRIP 250 ML IV SCH (11:13)
--- NOTE | 2019-06-09 13:48 | NUR ---
THIS RN INFORMED DR. MIMS THAT PT URINE OUTPUT HAS DECREASED TO 25ML/HR. NO NEW ORDERS AT THIS TIME.
--- NOTE | 2019-06-09 14:06 | Cardiology Progress Note ---
Cardiology SOAP Progress Note Subjective: Worsening clinical condition. Objective: I&O/Vital Signs 06/09/19 06/09/19 06/09/19 06/09/19 02:15 02:18 02:30 02:45 Pulse 68 66 67 71 Resp 24 26 15 18 B/P (MAP) 89/56 (67) 119/56 (77) 127/55 (79) Pulse Ox 96 92 91 93 O2 Delivery Mechanical Ventilator Mechanical Ventilator Mechanical Ventilator O2 Flow Rate 40.00 40.00 40.00 FiO2 50 06/09/19 06/09/19 06/09/19 06/09/19 03:00 03:15 03:30 03:45 Pulse 71 73 70 70 Resp 15 B/P (MAP) 113/57 (75) 131/57 (81) 92/54 (67) 107/56 (73) Pulse Ox 94 94 100 100 O2 Delivery Mechanical Ventilator Mechanical Ventilator Mechanical Ventilator Mechanical Ventilator O2 Flow Rate 40.00 40.00 40.00 40.00 06/09/19 06/09/19 06/09/19 06/09/19 03:55 04:00 04:00 04:05 Pulse 72 72 70 Resp 16 19 17 B/P (MAP) 107/56 (73) 139/70 (93) 128/60 (82) Pulse Ox 100 100 100 O2 Delivery Mechanical Ventilator Mechanical Ventilator Mechanical Ventilator Mechanical Ventilator O2 Flow Rate 40.00 40.00 40.00 FiO2 30 06/09/19 06/09/19 06/09/19 06/09/19 04:10 04:15 05:00 06:00 Pulse 71 73 70 68 Resp 15 15 13 13 B/P (MAP) 139/70 (93) 135/70 (91) 135/70 (91) 136/74 (94) Pulse Ox 100 100 100 100 O2 Delivery Mechanical Ventilator Mechanical Ventilator Mechanical Ventilator Mechanical Ventilator O2 Flow Rate 40.00 40.00 40.00 40.00 06/09/19 06/09/19 06/09/19 06/09/19 07:00 07:00 07:08 08:00 Pulse 74 72 67 73 Resp 25 25 25 B/P (MAP) 115/71 (86) 112/66 (81) Pulse Ox 100 92 94 O2 Delivery Mechanical Ventilator Mechanical Ventilator O2 Flow Rate 30.00 30.00 FiO2 50 06/09/19 06/09/19 06/09/1919/20 08:00 09:00 09:00 09:34 Pulse 71 67 Resp 25 25 B/P (MAP) 112/66 101/71 (81) Pulse Ox 96 70 O2 Delivery Mechanical Ventilator Mechanical Ventilator O2 Flow Rate 30.00 FiO2 30 50 06/09/19 06/09/19 06/09/19 06/09/19 10:00 11:00 12:00 12:00 Pulse 71 71 67 Resp 25 25 24 B/P (MAP) 113/66 (82) 117/62 (80) 107/64 (78) Pulse Ox 99 100 100 O2 Delivery Mechanical Ventilator Mechanical Ventilator Mechanical Ventilator Mechanical Ventilator O2 Flow Rate 30.00 30.00 30.00 FiO2 30 06/09/19 06/09/19 06/09/19 12:00 13:00 13:30 Temp 35.8 Pulse 66 70 Resp 25 Pulse Ox 98 FiO2 50 06/09/19 00:00 Intake Total 0 ml Output Total 550 ml Balance -550 ml Weight (Pounds): 178 Weight (Ounces): 0.0 Weight (Calculated Kilograms): 80.059721 Constitutional: other (intubated/ventilated) Respiratory: chest is bilaterally symmetric, other (coarse breath sounds bilaterally) Cardiovascular: regular rate-rhythm, S1 and S2 Gastrointestional: soft, audible bowel sounds Extremities: no lower extremity edema bilateral Neurologic/Psychiatric: other (intubated/ventilated) Results/Procedures: Labs Laboratory Tests 06/08/19 15:48: Glucometer 204H 06/08/19 19:26: Glucometer 228H 06/08/19 22:10: Blood Gas Puncture Site R RAD, Blood Gas Patient Temperature 35.4, Arterial Blood pH 7.33*L, Arterial Blood Partial Pressure CO2 48H, Arterial Blood Partial Pressure O2 73L, Arterial Blood HCO3 25, Arterial Blood Total CO2 26.9, Arterial Blood Oxygen Saturation 95, Arterial Blood Base Excess -0.1, Florentin Test YES-POS, Blood Gas Ventilator Setting YES, Blood Gas Inspired Oxygen 30% 06/09/19 00:00: Glucometer 214H 06/09/19 00:30: Blood Gas Puncture Site RIGHT RADIAL, Blood Gas Patient Temperature 35.8, Arterial Blood pH 7.49H, Arterial Blood Partial Pressure CO2 35, Arterial Blood Partial Pressure O2 146H, Arterial Blood HCO3 27, Arterial Blood Total CO2 28.2, Arterial Blood Oxygen Saturation 100, Arterial Blood Base Excess 3.6H, Florentin Test POSTIVE, Blood Gas Ventilator Setting YES, Blood Gas Inspired Oxygen 50% 06/09/19 02:00: Blood Gas Puncture Site RIGHT RADIAL, Blood Gas Patient Temperature 35.6, Arterial Blood pH 7.24*L, Arterial Blood Partial Pressure CO2 59H, Arterial Blood Partial Pressure O2 65L, Arterial Blood HCO3 25, Arterial Blood Total CO2 27.0, Arterial Blood Oxygen Saturation 91L, Arterial Blood Base Excess -1.7, Florentin Test POSITIVE, Blood Gas Ventilator Setting YES, Blood Gas Inspired Oxygen 40% 06/09/19 02:57: B-Type Natriuretic Peptide 74.8 06/09/19 03:31: White Blood Count 10.9, Red Blood Count 3.58L, Hemoglobin 10.3L, Hematocrit 33L, Mean Corpuscular Volume 92, Mean Corpuscular Hemoglobin 29, Mean Corpuscular Hemoglobin Concent 31L, Red Cell Distribution Width 14.9H, Platelet Count 128L, Mean Platelet Volume 11.0H, Neutrophils (%) (Auto) 88H, Lymphocytes (%) (Auto) 4L, Monocytes (%) (Auto) 8, Eosinophils (%) (Auto) 0, Basophils (%) (Auto) 0, Neutrophils # (Auto) 9.6H, Lymphocytes # (Auto) 0.4L, Monocytes # (Auto) 0.8, E osinophils # (Auto) 0.0, Basophils # (Auto) 0.0, Neutrophils % (Manual) 91, Lymphocytes % (Manual) 4, Monocytes % (Manual) 5, Sodium Level 139, Potassium Level 4.5, Chloride Level 108H, Carbon Dioxide Level 18L, Anion Gap 13, Blood Urea Nitrogen 49H, Creatinine 1.75H, Estimat Glomerular Filtration Rate 38, BUN/Creatinine Ratio 28, Glucose Level 206H, Calcium Level 7.9L, Phosphorus Level 6.2H, Magnesium Level 2.3 06/09/19 04:35: Blood Gas Puncture Site LEFT RADIAL, Blood Gas Patient Temperature 36.4, Arterial Blood pH 7.26*L, Arterial Blood Partial Pressure CO2 55H, Arterial Blood Partial Pressure O2 120H, Arterial Blood HCO3 24, Arterial Blood Total CO2 25.8, Arterial Blood Oxygen Saturation 99, Arterial Blood Base Excess -2.2, Florentin Test POSITIVE, Blood Gas Ventilator Setting YES, Blood Gas Inspired Oxygen 40% 06/09/19 07:22: Blood Gas Puncture Site LT RAD, Blood Gas Patient Temperature 35.8, Arterial Blood pH 7.33*L, Arterial Blood Partial Pressure CO2 46H, Arterial Blood Partial Pressure O2 99H, Arterial Blood HCO3 24, Arterial Blood Total CO2 25.3, Arterial Blood Oxygen Saturation 98, Arterial Blood Base Excess -1.5, Florentin Test YES-POS, Blood Gas Ventilator Setting YES, Blood Gas Inspired Oxygen 25 06/09/19 07:57: Glucometer 198H 06/09/19 11:09: Glucometer 204H Microbiology 06/07/19 Urine Culture - Final, Complete NO GROWTH 06/07/19 MRSA Screen - Final, Complete MRSA not isolated A/P: Assessment/Dx: Acute respiratory failure Coronary artery disease Congestive heart failure Hypertension Plan: Acute respiratory failure, acute exacerbation of COPD, intubated, managed by primary care team Severe COPD, oxygen dependent at home, currently ventilator dependent, managed by Dr. Piña Congestive heart failure, acute on chronic left ventricular systolic dysfunction, planning to repeat 2-D echocardiogram. Coronary artery disease, history of CABG 5 done in 2003 using CRISOSTOMO to LAD, vein graft to the first OM, second OM, diagonal and right coronary artery. Had left upper lobe lung reduction was resection of massive bullae. Has been doing well. Dr. Hawkins performed stenting of the LAD using 3.5 x 12 mm Promus Premeire, another stent to the circumflex artery using 4.0 x 8mm and balloon angioplasty to the OM 3 using 2.515 mm in May 2014. Most recent cardiac catheterization September 25, 2014 revealed moderate disease in the left main coronary artery, patent stent in the proximal LAD and first obtuse marginal branch. Small vessel disease distally. The third obtuse marginal branch had balloon angioplasty in May 2014, still patent with 70 percent ostial stenosis; medical therapy recommended. Patent vein graft to the diagonal artery and vein graft to RCA with small vessel disease distally. Known occluded vein graft to the OM branch and occluded CRISOSTOMO to LAD. EF 40- 45%, improved compared to May 2014. Continue to monitor. Severe carotid stenosis, followed and monitored by heart and vascular care Hypertension, continue to monitor blood pressure Hyperlipidemia, monitor lipids History of bifascicular block, EKG showed sinus rhythm with right bundle branch block, left anterior fascicular block, continue to monitor Diabetes mellitus, followed and managed by primary care physician. Thank you for your consultation. Please call me if you have any questions. Alina Mcfarlane MD, FACP, FACC, FSCAI, FHRS, CCDS Interventional Cardiology Cardiac Electrophysiology Vascular Medicine and Endovascular Interventions Michaela MCFARLANE MD Jun 09, 2019 14:06
[2019-06-09] MEDS: ROSUVASTATIN 10 MG (CRESTOR) TABLET PO SCH (19:50)
[2019-06-09] MEDS: MONTELUKAST 10 MG (SINGULAIR) TAB PO SCH (19:50)
[2019-06-09] MEDS: FLUTICASONE NASAL SPRAY (FLONASE) 16 GM BTL NS SCH (19:50)
[2019-06-09 22:30] LABS: ABG BASE EXCESS -1.2 MMOL/L (-2.5-2.5); ABG OXYGEN SATURATION 97 % (94-100); ABG PCO2 51 MMHG (35-45); ABG PO2 87 MMHG (79-93); ABG TCO2 26.4 MMOL/L (21.0-31.0)
[2019-06-09 22:32] LABS: ALLENS TEST POSITIVE; INSPIRED O2 30%; VENTILATOR YES
[2019-06-09 22:33] LABS: ABG PH 7.29 (7.37-7.43); PATIENT TEMP 35.7
--- NOTE | 2019-06-09 22:33 | NUR ---
E-ICU CONTACTED BY THIS RN DUE TO PT VENT ALARMS SOUNDING AND LOW 02 SAT. E-ICU GAVE ORDERS FOR ABG AND CHEST X RAY AND VENT SETTING CHANGE
[2019-06-10] VITALS (15 sets, daily range): BP systolic 109–149; BP diastolic 60–78
[2019-06-10] MEDS: DexMEDEtomidine 250 ML DRIP 250 ML IV SCH (01:53)
[2019-06-10] MEDS: aCETylcysteine 20% (MUCOMYST) 30ML SOLN VIAL INH SCH ×3 (02:30→09:54)
[2019-06-10] MEDS: RT-ALBUTEROL SULF 2.5 MG/3 ML PRE-MIX VIAL IH SCH ×3 (02:30→09:53)
[2019-06-10 03:20] LABS: ABG BASE EXCESS -0.8 MMOL/L (-2.5-2.5); ABG OXYGEN SATURATION 92 % (94-100); ABG PCO2 44 MMHG (35-45); ABG PH 7.35 (7.37-7.43); ABG PO2 69 MMHG (79-93); ABG TCO2 25.5 MMOL/L (21.0-31.0)
[2019-06-10 03:21] LABS: ALLENS TEST POSITIVE; INSPIRED O2 30%; PATIENT TEMP 36.2; VENTILATOR YES
[2019-06-10] MEDS: inSUlin ASPART (NovoLOG) 1 UNIT/0.01 ML (CHARGE PER UNIT) SC SCH ×2 (03:30→09:30)
[2019-06-10] MEDS: LACTATED RINGERS 1,000 ML IV SCH (03:33)
[2019-06-10] MEDS: cefTRIAXone FOR IV USE 1,000 MG in WATER (STERILE) FOR INJECTION 10 ML IV SCH (03:33)
[2019-06-10] MEDS: guaiFENesin SYRUP 100 MG/5 ML 10 ML (ROBITUSSIN SF) GT SCH ×2 (03:33→09:30)
[2019-06-10 04:13] LABS: BASOPHILS % (AUTO) 0 % (0-10); EOSINOPHILS % (AUTO) 0 % (0-10); HEMATOCRIT 34 % (40-54); HEMOGLOBIN 10.8 G/DL (13.3-17.7); LYMPHOCYTES # (AUTO) 0.7 X 10^3 (1.0-4.0); LYMPHOCYTES % (AUTO) 5 % (12-44); MEAN CORPUSCULAR HEMOGLOBIN 29 PG (25-34); MEAN CORPUSCULAR HGB CONC 32 G/DL (32-36); MEAN CORPUSCULAR VOLUME 90 FL (80-99); MEAN PLATELET VOLUME 12.5 FL (7.4-10.4); MONOCYTES # (AUTO) 0.9 X 10^3 (0.0-1.0); MONOCYTES % (AUTO) 7 % (0-12); NEUTROPHILS % (AUTO) 88 % (42-75); PLATELET COUNT 133 10^3/uL (130-400); RED CELL DISTRIBUTION WIDTH 14.7 % (10.0-14.5); WHITE BLOOD COUNT 12.5 10^3/uL (4.3-11.0)
[2019-06-10 04:28] LABS: CALCIUM 8.2 MG/DL (8.5-10.1); CREATININE SERUM 1.32 MG/DL (0.60-1.30); MAGNESIUM 2.2 MG/DL (1.6-2.4); PHOSPHORUS 4.2 MG/DL (2.3-4.7); POTASSIUM 4.4 MMOL/L (3.6-5.0)
--- NOTE | 2019-06-10 04:55 | Pulmonary Progress Note ---
Subjective Time Seen by a Provider: 07:14 Subjective/Events-last exam Sedated on vent. PT still has cuff leak. Sepsis Event Evaluation Height, Weight, BMI Height: 5'11" Weight: 178lbs. 0.0oz. 80.705844sd; 25.43 BMI Method:Stated Exam Exam Vital Signs Date Time Temp Pulse Resp B/P (MAP) Pulse Ox O2 Delivery O2 Flow Rate FiO2 06/10/19 03:22 Mechanical Ventilator 30 06/10/19 03:21 36.2 06/10/19 02:30 62 25 100 50 06/10/19 02:00 59 25 135/78 (97) 100 Mechanical Ventilator 30.00 06/10/19 01:00 62 16 128/68 (88) 100 Mechanical Ventilator 30.00 06/10/19 00:42 64 06/10/19 00:00 65 14 109/69 (82) 98 Mechanical Ventilator 30.00 06/09/19 23:11 Mechanical Ventilator 30 06/09/19 23:08 36.1 06/09/19 23:00 67 18 122/63 (82) 97 Mechanical Ventilator 30.00 06/09/19 22:42 127/63 06/09/19 22:00 62 20 130/71 (90) 96 Mechanical Ventilator 30.00 06/09/19 21:38 64 25 100 50 06/09/19 21:00 63 24 113/65 (81) 100 Mechanical Ventilator 30.00 06/09/19 20:00 Mechanical Ventilator 30 06/09/19 20:00 35.8 06/09/19 20:00 63 25 125/69 (87) 100 Mechanical Ventilator 30.00 06/09/19 19:00 64 24 131/66 (87) 99 Mechanical Ventilator 30.00 06/09/19 18:47 68 06/09/19 18:04 64 25 100 50 06/09/19 18:00 61 25 119/65 (83) 100 Mechanical Ventilator 30.00 06/09/19 17:00 64 24 119/74 (89) 100 Mechanical Ventilator 30.00 06/09/19 16:00 Mechanical Ventilator 30 06/09/19 16:00 66 25 111/67 (82) 100 Mechanical Ventilator 30.00 06/09/19 16:00 35.8 06/09/19 15:00 66 24 114/71 (85) 99 Mechanical Ventilator 30.00 06/09/19 14:00 66 15 118/65 (82) 99 Mechanical Ventilator 30.00 06/09/19 13:30 70 25 98 50 06/09/19 13:00 64 24 115/65 (82) 100 Mechanical Ventilator 30.00 06/09/19 13:00 66 06/09/19 12:00 35.8 06/09/19 12:00 67 24 107/64 (78) 100 Mechanical Ventilator 30.00 06/09/19 12:00 Mechanical Ventilator 30 06/09/19 11:00 71 25 117/62 (80) 100 Mechanical Ventilator 30.00 06/09/19 10:00 71 25 113/66 (82) 99 Mechanical Ventilator 30.00 06/09/19 09:34 67 25 70 50 06/09/19 09:00 71 25 101/71 (81) 96 Mechanical Ventilator 30.00 06/09/19 09:00 112/66 06/09/19 08:00 Mechanical Ventilator 30 06/09/19 08:00 73 25 112/66 (81) 94 Mechanical Ventilator 30.00 06/09/19 07:08 67 25 92 50 06/09/19 07:00 72 25 115/71 (86) 100 Mechanical Ventilator 30.00 06/09/19 07:00 74 06/09/19 06:00 68 13 136/74 (94) 100 Mechanical Ventilator 40.00 06/09/19 05:00 70 13 135/70 (91) 100 Mechanical Ventilator 40.00 I & O 06/10/19 07:00 Intake Total 3700 ml Output Total 750 ml Balance 2950 ml Height & Weight Height: 5'11" Weight: 178lbs. 0.0oz. 80.585970ny; 25.43 BMI Method:Stated General Appearance: No Apparent Distress, Other (Intubated and sedated) HEENT: PERRL/EOMI, Other (endotracheal tube in place) Neck: Normal Inspection, Supple Respiratory: Lungs Clear, Normal Breath Sounds, No Respiratory Distress, Other (And mechanically ventilated) Cardiovascular: Regular Rate, Rhythm, No Edema, No Murmur Capillary Refill: Less Than 3 Seconds Gastrointestinal: normal bowel sounds, non tender, soft Extremity: Normal Inspection, No Pedal Edema Neurologic/Psychiatric: Other (Sedated) Skin: Normal Color, Warm/Dry Lymphatic: No Adenopathy Results Lab Laboratory Tests 1/19/20 03:31 06/10/19 03:35 Assessment/Plan Assessment/Plan Acute on chronic respiratory failure -Continue ventilator care - rocephin and azithromycin for now -It is expected family will make pt LINE PERSON today. COPDAE -Solumedrol -Duo nebs Q4 - pulmicort Hx of severe oxygen dependent COPD -Last CT of chest reviewed with family CAD s/p CABG Grade 1 diastolic dysfunction and mod/severe tricuspid regurg acute on CKD -IVF and monitor NATE MIMS DO Jun 10, 2019 04:55
[2019-06-10] MEDS: morphine INJ 4 MG/ML 1 ML (VIAL/SYRINGE) IVP PRN ×4 (05:02→14:47)
[2019-06-10] MEDS: LORazepam INJ 2 MG/ML (ATIVAN) VIAL IVP PRN ×5 (05:02→14:48)
--- NOTE | 2019-06-10 06:01 | Diagnostic Imaging Report ---
INDICATION: Dyspnea COMPARISON: 06/09/2019 TECHNIQUE: Two radiographs of the chest dated 06/09/2019 at 2237 FINDINGS: Endotracheal tube is present with the distal tip overlying the tracheal air column above the level of the dong. Probable enteric catheter is also suggested which extends overlying the lower chest, the distal tip is not well visualized. Postsurgical changes of a CABG. The cardiac silhouette is stable. No significant pulmonary vascular congestion. Bilateral pulmonary opacities, greatest within the left midlung and right lung base are again identified, slightly improved from the prior examination. Small left pleural effusion. No significant right pleural effusion. No pneumothorax. Calcified granuloma within the left midlung. Osseous structures appear stable. IMPRESSION: Slightly improved bilateral pulmonary opacities. Lines and tubes as described above. This includes a probable enteric catheter which extends into the lower chest though the distal tip is not well visualized. Dictated by: Dictated on workstation # [id number]
[2019-06-10] MEDS: MAGNESIUM 1 GM/100 ML IVPB 100 ML IV SCH (06:37)
[2019-06-10] MEDS: KCL 20 MEQ TAB (K-DUR) PO SCH (06:37)
[2019-06-10] MEDS: POTASSIUM CL 10MEQ/50ML IVPB 50 ML IV SCH (06:37)
[2019-06-10] MEDS: methylPREDNISolone 40 MG/ML (Solu-MEDROL) VIAL IV SCH (06:39)
--- NOTE | 2019-06-10 07:24 | Pulmonary Procedures ---
Pulmonary Procedures Date of Procedure Date of Service: Jun 09, 2019 (late note) Bronch Bronchoscopy with bilateral bronchial washes and repositioning of ET tube. Preop DX respiratory failure and persistent ET tube cuff leak Postop DX: same Complications: none After informed consent obtained and formal time out pt was sedated using Fentanyl and Versed. Bronchoscope was advanced through the ET Tube. An anatomical tour was undertaken down to the segmental bronchi bilaterally. No endobronchial lesions noted. bilateral bronchial washes were obtained. ET tube advanced to approx 3-4cm above dong and cuff reinflated. This did appear to resolve cuff leak. Pt tolerated procedure well. No complications noted. Stat CXR is pending. NATE MIMS DO Jun 10, 2019 07:24
[2019-06-10] MEDS: RT-BUDESONIDE NEBS 0.5 MG/2ML (PULMICORT) AMP INH SCH (07:36)
--- NOTE | 2019-06-10 07:46 | Diagnostic Imaging Report ---
INDICATION: Dyspnea/respiratory distress. Upright portable AP view of the chest is obtained with comparison made study one day earlier. FINDINGS: There is extensive bilateral air trapping. Prominent interstitial markings are again seen throughout the lungs. Focal 1 cm nodule in the left upper lobe has not significantly changed. IMPRESSION: Extensive background COPD without definite change when compared to previous study. Presumed calcified granuloma is again noted in the left upper lobe. Dictated by: Dictated on workstation # [id number]
--- NOTE | 2019-06-10 08:14 | Occ Therapy Progress Note ---
Therapy Progress Note Per DO documentation pt remains on vent/ sedation. OT to monitor pt and eval/ treat when medically stable and able to participate in skilled OT services. EVITA FARMER OTR Jun 10, 2019 08:14
--- NOTE | 2019-06-10 08:16 | Physical Therapy Progress Note ---
Therapy Progress Note Patient is sedated on ventilator. PT will resume therapy when applicable. LILLIE SCHAFFER PT Jun 10, 2019 08:16
--- NOTE | 2019-06-10 08:19 | Cardiology Progress Note ---
Subjective Date Seen by Provider: Jun 10, 2019 Time Seen by Provider: 08:15 Subjective/Events-last exam Patient is sedated and intubated. Events from the weekend reviewed, patient had ETT leak, suspect patient will follow necrosis or fistula. I was informed by the nurse that there is a plan for comfort care and extubation today once the family arrived Review of Systems General: Other (Unable to provide review of systems) Objective-Cardiology Exam Last Set of Vital Signs Vital Signs 06/10/19 06/10/19 06/10/19 06/10/19 03:21 07:36 08:00 08:11 Temp 36.2 Pulse 79 Resp 14 B/P (MAP) 124/67 (86) Pulse Ox 96 O2 Delivery Mechanical Ventilator O2 Flow Rate 30.00 FiO2 25 Capillary Refill : Less Than 3 Seconds I&O Intake and Output 06/10/19 00:00 Intake Total 3950 ml Output Total 1500 ml Balance 2450 ml Intake Oral 0 ml IV Total 3950 ml Output Urine Total 850 ml Gastric Drainage Total 650 ml General: Other (Sedated and intubated) HEENT: Atraumatic Neck: Other (Edema) Lungs: Normal Air Movement, Other (Bilateral rhonchi) Heart: Regular Rate, Normal S1, Normal S2 Abdomen: Normal Bowel Sounds Extremities: No Clubbing, No Edema Skin: No Rashes Neuro: Other (Sedated and intubated) Psych/Mental Status: Other (Sedated and intubated) Results Lab Laboratory Tests 06/10/19 03:35 A/P-Cardiology Admission Diagnosis Acute respiratory failure Coronary artery disease Congestive heart failure Hypertension Assessment/Plan Acute respiratory failure, acute exacerbation of COPD, intubated, managed by primary care team ETT leak, persistent, requiring higher pressure, progressively worse with questionable fistula or necrosis of the trachea, has been managed by Dr. Piña, possible comfort care today Severe COPD, oxygen dependent at home, currently ventilator dependent, managed by Dr. Piña Congestive heart failure, echocardiogram done on June 07, 2019 showing normal left ventricular size and systolic function with ejection fraction 55-65 percent, severe pulmonary hypertension with PA pressure 70-75 mmHg. Unlikely that he has congestive heart failure at this time Coronary artery disease, history of CABG 5 done in 2003 using CRISOSTOMO to LAD, vein graft to the first OM, second OM, diagonal and right coronary artery. Had left upper lobe lung reduction was resection of massive bullae. Has been doing well. Dr. Hawkins performed stenting of the LAD using 3.5 x 12 mm Promus Premeire, another stent to the circumflex artery using 4.0 x 8mm and balloon angioplasty to the OM 3 using 2.515 mm in May 2014. Most recent cardiac catheterization September 25, 2014 revealed moderate disease in the left main coronary artery, patent stent in the proximal LAD and first obtuse marginal branch. Small vessel disease distally. The third obtuse marginal branch had balloon angioplasty in May 2014, still patent with 70 percent ostial stenosis; medical therapy recommended. Patent vein graft to the diagonal artery and vein graft to RCA with small vessel disease distally. Known occluded vein graft to the OM branch and occluded CRISOSTOMO to LAD. EF 40- 45%, improved compared to May 2014. Continue to monitor. Severe carotid stenosis, followed and monitored by heart and vascular care Hypertension, continue to monitor blood pressure Hyperlipidemia, monitor lipids History of bifascicular block, EKG showed sinus rhythm with right bundle branch block, left anterior fascicular block, continue to monitor Diabetes mellitus, followed and managed by primary care physician. Clinical Quality Measures DVT/VTE Risk/Contraindication: Risk Factor Score Per Nursin RFS Level Per Nursing on Admit: 4+=Very High GERARDO ZALDIVAR MD Jun 10, 2019 08:19
[2019-06-10] MEDS: meTOprolol TARTRATE 25 MG (LOPRESSOR) TABLET PO SCH (09:32)
[2019-06-10] MEDS: AZITHROMYCIN INJECTION 250 MG in NS (IVPB) 250 ML IV SCH (09:32)
[2019-06-10] MEDS: PANTOPRAZOLE 40 MG (PROTONIX) VIAL IV SCH (09:32)
[2019-06-10] MEDS: LORATADINE (CLARITIN) 10 MG TAB PO SCH (09:32)
[2019-06-10] MEDS: CHLORHEXIDINE 0.12% SOLN 15 ML (PERIDEX) UDC PO SCH (09:32)
[2019-06-10] MEDS ORDERED: NS IV 1000 ML 1,000 ML ONE (10:21)
--- NOTE | 2019-06-10 11:10 | NUR ---
Pastoral care visit, pt non communicative, family at bedside, I offered support and prayer, family declined prayer and stated they were doing ok and would let nurse know if Pastoral Care was needed.
--- NOTE | 2019-06-10 12:37 | NUR ---
Received dietary consult regarding pt's vent status. Note pt is currently on comfort care measures only. Will continue to follow and reassess as pt needs and status change. Tamika Tapia, MS, RD, LD
--- NOTE | 2019-06-10 14:24 | Progress Note - Hospitalist ---
Subjective HPI/CC On Admission Date Seen by Provider: Jun 10, 2019 Time Seen by Provider: 08:05 Patient is an 79-year-old male with past medical history of COPD, coronary artery disease status post CABG who presented to the ER due to shortness of breath. He has end stage COPD at baseline and wears 6lpm chronically. He was seen by his staff development coordinator Dr Piña a couple of days ago and started on prednisone. He was prescribed 60mg and though the first day helped but after that did not think it was helping and states he is "convinced it doesn't work" for him. He reports cough without sputum production. He is otherwise dyspneic with conversation and history is somewhat limited. Subjective/Events-last exam he is intubated and sedated. There is no family at bedside. Objective Exam Vital Signs Vital Signs Date Time Temp Pulse Resp B/P (MAP) Pulse Ox O2 Delivery O2 Flow Rate FiO2 06/10/19 12:00 Mechanical Ventilator 30 06/10/19 10:00 70 16 126/64 (84) 91 30.00 06/10/19 08:00 35.6 Capillary Refill : Less Than 3 Seconds General Appearance: No Apparent Distress Respiratory: Lungs Clear, Normal Breath Sounds, No Respiratory Distress, Other (intubated and mechanically ventilated) Cardiovascular: Regular Rate, Rhythm, No Edema, No Murmur Gastrointestinal: Normal Bowel Sounds, Non Tender, Soft Extremity: Normal Inspection, No Pedal Edema Neurologic/Psychiatric: Other (sedated) Skin: Normal Color, Warm/Dry Results/Procedures Lab Laboratory Tests 06/10/19 03:35 Patient resulted labs reviewed. Imaging: Reviewed Imaging Report Assessment/Plan Assessment and Plan Assess & Plan/Chief Complaint Acute on Chronic Respiratory Failure COPD with acute exacerbation Community acquired pneumonia Likely tracheomalacia Intubated 06/06 Continue steroids Continue antibiotics Pulmonology following, appreciate assistance considering transition to comfort measures only later today CAD s/p CABG Tricupsid regurgitation Cardiology consulted, appreciate recs CLARISSA on CKD CLARISSA resolved continue IV fluids continue to monitor Critical Care Critically Ill Patient Diagnosis/Problems Diagnosis/Problems (1) Acute respiratory failure with hypoxia Status: Acute (2) Acute exacerbation of chronic obstructive pulmonary disease (COPD) Status: Acute (3) Acute kidney injury superimposed on chronic kidney disease Status: Acute Clinical Quality Measures DVT/VTE Risk/Contraindication: Risk Factor Score Per Nursin RFS Level Per Nursing on Admit: 4+=Very High CHARLINE PARRA MD Jun 10, 2019 14:24
[2019-06-10] MEDS ORDERED: PROMETHAZINE INJ 25 MG/ML (PHENERGAN) AMP IVP PRN (15:30)
[2019-06-10] MEDS ORDERED: BISACODYL 10 MG SUPP (DULCOLAX) PR PRN (15:30)
[2019-06-10] MEDS ORDERED: ARTIFICAL TEARS 0.4 ML UNIT DOSE (REFRESH PLUS) OU PRN (15:30)
[2019-06-10] MEDS ORDERED: SCOPOLAMINE 1.5 MG (TRANSDERM-SCOP) PATCH TOP SCH (15:30)
[2019-06-10] MEDS ORDERED: SALIVA STIMULANT MOUTH SPRAY (BIOTENE) 1.5 OZ MM PRN (15:30)
[2019-06-10] MEDS ORDERED: ONDANSETRON 4 MG/2 ML (SDV) Z0FRAN IVP PRN (15:30)
[2019-06-10] MEDS ORDERED: ACETAMINOPHEN 650 MG SUPP (TYLENOL) PR PRN (15:30)
[2019-06-10] MEDS ORDERED: GLYCOPYRROLATE 0.2 MG/ML (ROBINUL) 2 ML VIAL IV PRN (15:30)
[2019-06-10] MEDS ORDERED: ATROPINE 1% OPHTHALMIC SOLN 2 ML SL PRN (15:30)
--- NOTE | 2019-06-10 15:42 | NUR ---
PALLIATIVE CARE RN in to see patient and talk to family. Patient is unresponsive after palliative extubation today. He appears to be very comfortable at this time as noted by no furrowing, moaning or unintentional movements. Very course breath sounds noted. Slight mottling noted on his knees. He has fluids still infusing at 150ml per hour. Ears are not thin or curling . Spoke to RN about CC orders for atropine, scopolamine and discontinuation of the fluids. Lots of education given to family about the dying process and the possible changes that he may go through. Anticipate passing to be in 12 to 24 hours. Family report no spiritual needs at this time and reports that pastoral care has bee in to visit. Will continue to monitor and offer support.
--- NOTE | 2019-06-10 16:57 | NUR ---
PT TIME OF 1644. VERIFIED BY TWO RNS, THIS RN AND JAMIE LYNN. RESPIRATIONS AND HEART BEAT CEASED. THIS RN CONTACTED [facility]. REFERENCE NUMBER# [id number]. PT DOES NOT QUALIFY FOR TISSUE OR EYE DONATION. PT DECLINED ORGAN DONATION ON ADMISSION DUE TO LIVING IN [place] DURING MAD COW DISEASE BREAKOUT. DR. MIMS, DR. PARRA, DR. ZALDIVAR, AND PALLIATIVE CARE NOTIFIED OF TIME OF .
--- NOTE | 2019-06-10 17:10 | NUR ---
FAMILY REQUESTED PT BODY BE RELEASED TO [facility]. HOME CONTACTED.
--- NOTE | 2019-06-10 17:54 | NUR ---
HOME ON UNIT. RELEASE OF BODY SIGNED BY FAMILY AND HOME. BODY RELEASED TO [facility].
--- NOTE | 2019-06-10 18:03 | Discharge Summary ---
Discharge Summary Hospital Course Problems/Dx: (1) Acute respiratory failure with hypoxia Status: Acute (2) Acute exacerbation of chronic obstructive pulmonary disease (COPD) Status: Acute (3) Acute kidney injury superimposed on chronic kidney disease Status: Acute Hospital Course Date of Admission: Jun 06, 2019 at 09:23 Admission Diagnosis : acute respiratory failure with hypoxia Family Physician/Provider: Monty Briceno DO Date of Discharge: 06/10/19 Discharge Diagnosis: acute respiratory failure with hypoxia Hospital Course: Jackson Avalos is an 79yoM who presented with shortness of breath and was admitted with acute respiratory failure with hypoxia. He was admitted with a COPD exacerbation and started on steroids and breathing treatments. He rapidly declined and required intubation. His course was complicated by an endotracheal tube cuff leak secondary to tracheomalacia. His family made the decision to transition to comfort measures only and he was compassionately extubated. The time of was 1643. Labs and Pending Lab Test: Laboratory Tests 06/09/19 19:30: Glucometer 201H 06/09/19 22:24: Blood Gas Puncture Site RIGHT BRACHIAL, Blood Gas Patient Temperature 35.7, Arterial Blood pH 7.29*L, Arterial Blood Partial Pressure CO2 51H, Arterial Blood Partial Pressure O2 87, Arterial Blood HCO3 25, Arterial Blood Total CO2 26.4, Arterial Blood Oxygen Saturation 97, Arterial Blood Base Excess -1.2, Florentin Test POSITIVE, Blood Gas Ventilator Setting YES, Blood Gas Inspired Oxygen 30% 06/09/19 22:55: Glucometer 166H 06/10/19 03:15: Blood Gas Puncture Site RIGHT RADIAL, Blood Gas Patient Temperature 36.2, Arterial Blood pH 7.35L, Arterial Blood Partial Pressure CO2 44, Arterial Blood Partial Pressure O2 69L, Arterial Blood HCO3 24, Arterial Blood Total CO2 25.5, Arterial Blood Oxygen Saturation 92L, Arterial Blood Base Excess -0.8, Florentin Test POSITIVE, Blood Gas Ventilator Setting YES, Blood Gas Inspired Oxygen 30% 06/10/19 03:27: Glucometer 168H 06/10/19 03:35: White Blood Count 12.5H, Red Blood Count 3.73L, Hemoglobin 10.8L, Hematocrit 34L , Mean Corpuscular Volume 90, Mean Corpuscular Hemoglobin 29, Mean Corpuscular Hemoglobin Concent 32, Red Cell Distribution Width 14.7H, Platelet Count 133, Mean Platelet Volume 12.5H, Neutrophils (%) (Auto) 88H, Lymphocytes (%) (Auto) 5L, Monocytes (%) (Auto) 7, Eosinophils (%) (Auto) 0, Basophils (%) (Auto) 0, Neutrophils # (Auto) 11.0H, Lymphocytes # (Auto) 0.7L, Monocytes # (Auto) 0.9, Eosinophils # (Auto) 0.0, Basophils # (Auto) 0.0, Sodium Level 139, Potassium Level 4.4, Chloride Level 109H, Carbon Dioxide Level 19L, Anion Gap 11, Blood Urea Nitrogen 48H, Creatinine 1.32H, Estimat Glomerular Filtration Rate 52, BUN/Creatinine Ratio 36, Glucose Level 156H, Calcium Level 8.2L, Phosphorus Level 4.2, Magnesium Level 2.2, Triglycerides Level 157H 06/10/19 08:17: Glucometer 198H Microbiology 06/09/19 Mycobacterial Culture - Preliminary, Resulted 06/07/19 Urine Culture - Final, Complete NO GROWTH Home Meds Active Reported Cardio [place] Benefits Softgel ([place]-3S/Dha/Epa/Fish Oil/D3) 1 Each Capsule 3 Cap PO BID Nexium 24Hr (Esomeprazole Magnesium) 20 Mg Tablet.dr 20 Mg PO BID Aspirin EC (Aspirin) 81 Mg Tablet.dr 81 Mg PO HS Aleve (Naproxen Sodium) 220 Mg Tablet 440 Mg PO Q8H PRN Multivitamins (Multivitamin) 1 Each Tablet 1 Tab PO DAILY Metoprolol Succinate 25 Mg Tab.er.24h 25 Mg PO DAILY LAST FILLED #90 01-16-19 Metformin HCl 500 Mg Tablet 250 Mg PO BID TAKES 1/2 (500MG) TABLET Amlodipine Besylate 5 Mg Tablet 5 Mg PO DAILY LAST FILLED #90 02-16-19 Potassium Chloride 20 Meq Tab.er.prt 40 Meq PO DAILY LAST FILLED #180 02-18-19 TAKES 2 (20MEQ) TABLETS Montelukast Sodium 10 Mg Tablet 10 Mg PO HS Prednisone 10 Mg Tab PO UD 60MG X 2 DAYS 40MG X 2 DAYS 30MG X 2 DAYS 20MG X 2 DAYS 10MG X 2 DAYS STARTED 06-04-19 Prednisone 2.5 Mg Tablet 2.5 Mg PO DAILY Rosuvastatin Calcium 10 Mg Tablet 10 Mg PO HS Losartan Potassium 100 Mg Tablet 100 Mg PO DAILY Januvia (Sitagliptin Phosphate) 100 Mg Tablet 100 Mg PO DAILY Symbicort 160-4.5 Mcg Inhaler (Budesonide/Formoterol Fumarate) 10.2 Gm Hfa.aer.ad 2 Puff INH BID Incruse Ellipta (Umeclidinium [place]) 62.5 Mcg Blst.w.dev 1 Puff INH DAILY Citalopram HBr (Citalopram Hydrobromide) 10 Mg Tablet 10 Mg PO HS Ipratropium [place] 15 Ml Naspr 2 [place] NS BID Furosemide 20 Mg Tablet 20 Mg PO Q72H Ventolin Hfa (Albuterol Sulfate) 18 Gm Hfa.aer.ad 2 Puff INH QID PRN Virtussin AC Liquid (Guaifenesin/Codeine Phosphate) 118 Ml Liquid 10 Ml PO Q6H PRN Nitroglycerin 0.4 Mg Tab.subl 0.4 Mg SL UD PRN Magnesium Oxide 400 Mg Tablet 400 Mg PO DAILY Nasacort (Triamcinolone Acetonide) 10.8 Ml [place] 2 Sprays NS HS Mucinex D ER 1,200-120 mg Tab (Guaifenesin/Pseudoephedrne HCl) 1 Each Tab.er.12h 1 Tab PO BID Cetirizine HCl 10 Mg Tablet 10 Mg PO DAILY Assessment/Pt Instructions patient . Discharge Planning: <30 minutes discharge planning Discharge Physical Examination Vital Signs Vital Signs Date Time Temp Pulse Resp B/P (MAP) Pulse Ox O2 Delivery O2 Flow Rate FiO2 06/10/19 12:00 Mechanical Ventilator 30 06/10/19 10:00 70 16 126/64 (84) 91 30.00 06/10/19 08:00 35.6 Allergies: Coded Allergies: ciclopirox (Unverified Allergy, Mild, 06/06/19) itraconazole (Unverified Allergy, Mild, 06/06/19) propoxyphene (Unverified Allergy, Mild, 06/06/19) Discharge Summary Date of Admission Jun 06, 2019 at 09:23 Date of Discharge Jun 10, 2019 at 17:55 Discharge Date: Jun 10, 2019 Discharge Time: 16:44 Admission Diagnosis Acute on Chronic Respiratory Failure Consults/Procedures Consulations pulmonology, cardiology Comfort Measures/ End of Life Care: Comfort Measures Cardiopulmonary Arrest: Cardiorespiratory Arrest Date of : Jun 10, 2019 Time of : 16:44 Discharge Diagnosis Acute on Chronic Respiratory Failure, COPD with acute exacerbation (1) Acute respiratory failure with hypoxia Status: Acute (2) Acute exacerbation of chronic obstructive pulmonary disease (COPD) Status: Acute (3) Acute kidney injury superimposed on chronic kidney disease Status: Acute Clinical Quality Measures DVT/VTE Risk/Contraindication: Risk Factor Score Per Nursin RFS Level Per Nursing on Admit: 4+=Very High CHARLINE PARRA MD Jun 10, 2019 18:03
[2019-06-13] MEDS ORDERED: SCOPOLAMINE PATCH REMOVAL TP SCH (15:29)
== END 2019-06-10 17:55 | disposition expired | DRG 208 ==
LOC: EDUNIT# 08:05 → ER 08:07 → 4TH 09:23 → ICU 17:00
PROVIDERS: ADMIT Family Medicine; ATTEND Family Medicine
PROC: 5A1945Z Respiratory Ventilation, 24-96 Consecutive Hours (ICD-10-PCS; principal; 2019-06-06)
PROC: 0BH17EZ Insertion of Endotracheal Airway into Trachea, Via Natural or Artificial Opening (ICD-10-PCS; 2019-06-06)
PROC: 5A09357 Assistance with Respiratory Ventilation, Less than 24 Consecutive Hours, Continuous Positive Airway Pressure (ICD-10-PCS; 2019-06-06)
PROC: 0B978ZZ Drainage of Left Main Bronchus, Via Natural or Artificial Opening Endoscopic (ICD-10-PCS; 2019-06-09)
PROC: 0B938ZZ Drainage of Right Main Bronchus, Via Natural or Artificial Opening Endoscopic (ICD-10-PCS; 2019-06-09)
PROC: 0BH17EZ Insertion of Endotracheal Airway into Trachea, Via Natural or Artificial Opening (ICD-10-PCS; 2019-06-09)
DX: J96.21 Acute and chronic respiratory failure with hypoxia (principal); I50.43 Acute on chronic combined systolic (congestive) and diastolic (congestive) heart failure; J44.1 Chronic obstructive pulmonary disease with (acute) exacerbation; N17.9 Acute kidney failure, unspecified; T85.638A Leakage of other specified internal prosthetic devices, implants and grafts, initial encounter; I13.0 Hypertensive heart and chronic kidney disease with heart failure and stage 1 through stage 4 chronic kidney disease, or unspecified chronic kidney disease; N18.9 Chronic kidney disease, unspecified; J39.8 Other specified diseases of upper respiratory tract; I46.9 Cardiac arrest, cause unspecified; Y83.8 Other surgical procedures as the cause of abnormal reaction of the patient, or of later complication, without mention of misadventure at the time of the procedure; E78.5 Hyperlipidemia, unspecified; E11.22 Type 2 diabetes mellitus with diabetic chronic kidney disease; I25.10 Atherosclerotic heart disease of native coronary artery without angina pectoris; Z95.1 Presence of aortocoronary bypass graft; E87.5 Hyperkalemia; I70.1 Atherosclerosis of renal artery
CPT/HCPCS: 36415; 71045; 80048; 80053; 81000; 82040; 82805; 82962; 83735; 83880; 84100; 84478; 84484; 85007; 85025; 85027; 87015; 87070; 87081; 87088; 87101; 87106; 87116; 87205; 87206; 87804; 93005; 93041; 93306; 94002; 94003; 94640; 94660; 94760; 94799; 96374; 96375